=== PATIENT | female | born 1940 ===

== ENCOUNTER 2017-01-27 17:59 | Inpatient (IN) | payer OTHER, MEDICAID ==
[2017-01-27 19:06] VITALS: BMI 35.3
[2017-01-27] MEDS ORDERED: Benzocaine/Menthol (Cepacol) Lozenge MT PRN (19:49)
[2017-01-27] MEDS: Budesonide 0.5 mg/2 ml Inhal Susp UD IH SCH (20:33)
[2017-01-27] MEDS: Insulin Reg-LOW-Coverage SC SCH (21:43)
[2017-01-27] MEDS ORDERED: Influenza Vaccine 45 MCG/0.5 ml IM ONE (23:20)
[2017-01-27] MEDS ORDERED: Pneumococcal 23-Valent Vaccine IM ONE (23:20)
[2017-01-28] MEDS: Levothyroxine 50 MCG TAB PO SCH ×2 (05:24→05:28)
[2017-01-28] MEDS ORDERED: Enoxaparin 60 mg Syringe SC SCH (06:00)
[2017-01-28] MEDS: Insulin Reg-LOW-Coverage SC SCH ×4 (06:38→22:16)
[2017-01-28 06:45] LABS: INR 1.19 (0.93-1.08)
[2017-01-28 07:03] LABS: CALCIUM 9.1 mg/dL (8.4-10.5); MAGNESIUM 1.8 mg/dL (1.7-2.2); POTASSIUM 3.7 mmol/L (3.6-5.0)
[2017-01-28] MEDS: Budesonide 0.5 mg/2 ml Inhal Susp UD IH SCH ×2 (07:07→20:22)
[2017-01-28] MEDS: Potassium Chloride 20 mEq ER Tab PO SCH ×2 (10:58→18:25)
[2017-01-28] MEDS: Silver Sulfadiazine 1% Cream (20 gm) TOP SCH (15:14)
[2017-01-28] MEDS ORDERED: Benzocaine/Menthol (Cepacol) Lozenge MT PRN (17:55)
[2017-01-28] MEDS: Levalbuterol 0.63 MG/3 ML Inhal Soln UD IH PRN (20:22)
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
--- NOTE | 2017-01-29 01:49 | CP.PCM.CON ---
History of Present Illness - History of Present Illness History of Present Illness: Infectious Disease Follow Up: January 28, 2017 76 yo female with initial presentation with a syncopal episode. She did fall and hit the back of her right arm and ribcage. The patient presented to the ER with dehydration and hypokalemia. The patient developed fevers up to 102.3 F three days ago. Hernandez cultures taken. No leukocytosis. The patient has been in the hospital for four days so far. No episodes of nausea and vomiting. Supportive care. Blood cultures showing gram positive cocci. FISH testing strongly suggesting Staph Aureus infection. MSSA seen in official culture results. The patient has been Afebrile for the past few days. The patient has mild SOB and general weakness. Improving. PT/INR was elevated but now normalized. Patient that she feels better every day. Family in room. Repeat blood cultures negative at 48 hours. PMHx: Chronic Atrial fibrillation, chronic hypertension, Chronic anxiety neurosis, hypothyroidism, degenerative arthritis, questionable levothyroxine allergy. PSHx: none given Allergies: Levothyroxine? Social Hx: No tobacco, EtOH, or illicit drug use Active Medications Acetaminophen (Tylenol 325mg Tab) 650 mg PO Q4H PRN; Protocol PRN Reason: Fever >100.4 F Last Admin: 01/28/17 22:22 Dose: 650 mg Benzocaine/Menthol (Cepacol Sore Throat) 1 kendy MT Q8H PRN; Protocol PRN Reason: Sore Throat Budesonide (Pulmicort Respules) 0.5 mg IH [id number] AJ PRN Reason: Protocol Last Admin: 01/28/17 20:22 Dose: 0.5 mg Clonidine HCl (Catapres) 0.1 mg PO Q4H PRN; Protocol PRN Reason: hypertension Famotidine (Pepcid) 20 mg PO HS AJ PRN Reason: Protocol Last Admin: 01/28/17 22:17 Dose: 20 mg Nafcillin Sodium 2 gm/ (Dextrose) 100 mls @ 100 mls/hr IVPB Q4 AJ PRN Reason: Protocol Stop: 01/31/17 20:00 Last Admin: 01/29/17 01:34 Dose: 100 mls/hr Insulin Human Regular (Humulin R Low) 0 units SC ACHS AJ PRN Reason: Protocol Last Admin: 01/28/17 22:16 Dose: Not Given Levalbuterol HCl (Xopenex) 0.63 mg IH [id number] PRN; Protocol PRN Reason: Shortness of Breath Last Admin: 01/28/17 20:22 Dose: 0.63 mg Levothyroxine Sodium (Synthroid) 50 mcg PO 0600 AJ PRN Reason: Protocol Lisinopril (Zestril) 20 mg PO DAILY AJ PRN Reason: Protocol Last Admin: 01/28/17 11:09 Dose: Not Given Lorazepam (Ativan) 0.5 mg PO Q6 PRN PRN Reason: Anxiety Last Admin: 01/28/17 22:22 Dose: 0.5 mg Metoprolol Tartrate (Lopressor) 50 mg PO BRKDIN AJ Last Admin: 01/28/17 18:25 Dose: 50 mg Potassium Chloride (K-Dur 20 Meq Er Tab) 20 meq PO BID AJ PRN Reason: Protocol Last Admin: 01/28/17 18:25 Dose: 20 meq Silver Sulfadiazine (Silvadene 1% 20 Gm) 1 ea TOP DAILY AJ PRN Reason: Protocol Last Admin: 01/28/17 15:14 Dose: 1 cre Warfarin Sodium (Coumadin) 6 mg PO 1800 AJ Last Admin: 01/28/17 18:40 Dose: 6 mg Family Hx: none given ROS: syncope, fall, fevers. No nausea, vomiting, diarrhea, headaches, chest pain, abdominal pain, melena, hematuria, hematemesis, hematochezia, depression, anxiety. Past Patient History - Past Social History Smoking Status: Never Smoked - CARDIAC Hx Cardiac Disorders: Yes Hx Hypertension: Yes - PULMONARY Hx Respiratory Disorders: No - NEUROLOGICAL Hx Neurological Disorder: No - HEENT Hx HEENT Problems: Yes Hx Glaucoma: Yes - RENAL Hx Chronic Kidney Disease: (sees kidney dr for hypokalemia) - ENDOCRINE/METABOLIC Hx Hypothyroidism: Yes - HEMATOLOGICAL/ONCOLOGICAL Hx Blood Disorders: No - INTEGUMENTARY Hx Dermatological Problems: No - MUSCULOSKELETAL/RHEUMATOLOGICAL Hx Falls: Yes (past) - GASTROINTESTINAL Hx Gastrointestinal Disorders: No - GENITOURINARY/GYNECOLOGICAL Hx Reproductive Disorders: No - PSYCHIATRIC Hx Psychophysiologic Disorder: No Hx Anxiety: (denies) Hx Depression: (denies) - SURGICAL HISTORY Hx Surgeries: No - ANESTHESIA Hx Anesthesia: No Hx Anesthesia Reactions: No Hx Malignant Hyperthermia: No Meds Allergies/Adverse Reactions: Allergies Allergy/AdvReac Type Severity Reaction Status Date / Time levothyroxine sodium Allergy ITCHING Verified 01/27/17 19:28 [From Synthroid] - Medications Medications: Current Medications Acetaminophen (Tylenol 325mg Tab) 650 mg PO Q4H PRN; Protocol PRN Reason: Fever >100.4 F Last Admin: 01/28/17 22:22 Dose: 650 mg Benzocaine/Menthol (Cepacol Sore Throat) 1 kendy MT Q8H PRN; Protocol PRN Reason: Sore Throat Budesonide (Pulmicort Respules) 0.5 mg IH [id number] AJ PRN Reason: Protocol Last Admin: 01/28/17 20:22 Dose: 0.5 mg Clonidine HCl (Catapres) 0.1 mg PO Q4H PRN; Protocol PRN Reason: hypertension Famotidine (Pepcid) 20 mg PO HS AJ PRN Reason: Protocol Last Admin: 01/28/17 22:17 Dose: 20 mg Nafcillin Sodium 2 gm/ (Dextrose) 100 mls @ 100 mls/hr IVPB Q4 AJ PRN Reason: Protocol Stop: 01/31/17 20:00 Last Admin: 01/29/17 01:34 Dose: 100 mls/hr Insulin Human Regular (Humulin R Low) 0 units SC ACHS AJ PRN Reason: Protocol Last Admin: 01/28/17 22:16 Dose: Not Given Levalbuterol HCl (Xopenex) 0.63 mg IH [id number] PRN; Protocol PRN Reason: Shortness of Breath Last Admin: 01/28/17 20:22 Dose: 0.63 mg Levothyroxine Sodium (Synthroid) 50 mcg PO 0600 AJ PRN Reason: Protocol Lisinopril (Zestril) 20 mg PO DAILY AJ PRN Reason: Protocol Last Admin: 01/28/17 11:09 Dose: Not Given Lorazepam (Ativan) 0.5 mg PO Q6 PRN PRN Reason: Anxiety Last Admin: 01/28/17 22:22 Dose: 0.5 mg Metoprolol Tartrate (Lopressor) 50 mg PO BRKDIN AJ Last Admin: 01/28/17 18:25 Dose: 50 mg Potassium Chloride (K-Dur 20 Meq Er Tab) 20 meq PO BID AJ PRN Reason: Protocol Last Admin: 01/28/17 18:25 Dose: 20 meq Silver Sulfadiazine (Silvadene 1% 20 Gm) 1 ea TOP DAILY AJ PRN Reason: Protocol Last Admin: 01/28/17 15:14 Dose: 1 cre Warfarin Sodium (Coumadin) 6 mg PO 1800 AJ Last Admin: 01/28/17 18:40 Dose: 6 mg Physical Exam - Constitutional Appears: Non-toxic, No Acute Distress - Head Exam Head Exam: ATRAUMATIC, NORMOCEPHALIC - Eye Exam Eye Exam: EOMI, PERRL Pupil Exam: NORMAL ACCOMODATION, PERRL - ENT Exam ENT Exam: Mucous Membranes Moist, Normal External Ear Exam, TM's Normal Bilaterally - Neck Exam Neck exam: Positive for: Full Rom, Normal Inspection - Respiratory Exam Respiratory Exam: Clear to Auscultation Bilateral, NORMAL BREATHING PATTERN. absent: Rales, Rhonchi, Wheezes - Cardiovascular Exam Cardiovascular Exam: Irregular Rhythm, +S1, +S2 - GI/Abdominal Exam GI & Abdominal Exam: Normal Bowel Sounds, Soft. absent: Distended, Tenderness - Extremities Exam Extremities exam: Positive for: full ROM, normal inspection - Neurological Exam Neurological exam: Alert, CN II-XII Intact, Oriented x3 - Psychiatric Exam Psychiatric exam: Normal Affect, Normal Mood - Skin Skin Exam: Intact, Normal Color Results - Vital Signs Recent Vital Signs: Last Vital Signs Temp 97.8 F 01/28/17 16:00 Pulse 78 01/28/17 18:25 Resp 18 01/28/17 16:00 BP 155/80 H 01/28/17 18:25 Pulse Ox 98 01/28/17 16:00 - Labs Result Diagrams: 01/28/17 11:04 01/28/17 06:28 Labs: Laboratory Results - last 24 hr 01/28/17 01/28/17 01/28/17 05:24 06:28 11:04 Hgb 10.4 L Hct 30.0 L PT 12.9 H INR 1.19 H Sodium 140 Potassium 3.7 Chloride 103 Carbon Dioxide 27 Anion Gap 14 BUN 19 Creatinine 1.6 H Est GFR ( Amer) 38 Est GFR (Non-Af Amer) 31 POC Glucose (mg/dL) 119 H Random Glucose 112 H Calcium 9.1 Magnesium 1.8 Stool Occult Blood 01/28/17 21:10 Hgb Hct PT INR Sodium Potassium Chloride Carbon Dioxide Anion Gap BUN Creatinine Est GFR ( Amer) Est GFR (Non-Af Amer) POC Glucose (mg/dL) Random Glucose Calcium Magnesium Stool Occult Blood Negative Assessment & Plan - Assessment and Plan (Free Text) Assessment: 76 yo female with sudden fevers up to 102 F. Hernandez cultures taken. Obtain ESR, CRP, and Procalcitonin values. Initially on cefepime at 1 gm IV daily given the renal insufficiency of the patient. Patient had abdominal pain as well. Patient states that she feels better today. Consider abdominal X-ray and even Abdominal CT scan - both studies did not show any significant abnormalities. Supportive care. Blood cultures showing gram positive cocci in clusters. PNA FISH strongly suggesting Staph Aureus. MSSA identified. On Nafcillin at this time. Had extensive discussion with the patient and multiple daughters regarding the current findings and potential outcomes. Patient is currently afebrile and feeling overall better. No new complaints at this time. Repeat cultures negative at 48 hours. Patient continues to improve. Thank you for allowing me to participate in the care of the patient, we will follow with you.
[2017-01-29] MEDS ORDERED: Enoxaparin 60 mg Syringe SC SCH (06:00)
[2017-01-29] MEDS: Levothyroxine 50 MCG TAB PO SCH (06:02)
[2017-01-29 07:34] LABS: INR 1.14 (0.93-1.08)
[2017-01-29 07:40] LABS: MAGNESIUM 1.7 mg/dL (1.7-2.2); POTASSIUM 3.6 mmol/L (3.6-5.0)
[2017-01-29] MEDS: Insulin Reg-LOW-Coverage SC SCH ×4 (07:57→22:04)
[2017-01-29] MEDS: Levalbuterol 0.63 MG/3 ML Inhal Soln UD IH PRN ×2 (08:47→20:16)
[2017-01-29] MEDS: Budesonide 0.5 mg/2 ml Inhal Susp UD IH SCH ×2 (08:47→20:16)
[2017-01-29] MEDS: Potassium Chloride 20 mEq ER Tab PO SCH ×2 (09:44→17:40)
[2017-01-29] MEDS: Silver Sulfadiazine 1% Cream (20 gm) TOP SCH (09:45)
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
--- NOTE | 2017-01-29 15:36 | CP.PCM.PN ---
Subjective - Date & Time of Evaluation Date of Evaluation: 01/29/17 Time of Evaluation: 14:45 - Subjective Subjective: Infectious Disease Follow Up: January 29, 2017 76 yo female with initial presentation with a syncopal episode. She did fall and hit the back of her right arm and ribcage. The patient presented to the ER with dehydration and hypokalemia. The patient developed fevers up to 102.3 F three days ago. Hernandez cultures taken. No leukocytosis. The patient has been in the hospital for four days so far. No episodes of nausea and vomiting. Supportive care. Blood cultures showing gram positive cocci. FISH testing strongly suggesting Staph Aureus infection. MSSA seen in official culture results. The patient has been Afebrile for the past few days. The patient has mild SOB and general weakness. Improving. PT/INR was elevated but now normalized. Patient that she feels better every day. Family in room. Repeat blood cultures negative at 48 hours. Objective - Vital Signs/Intake and Output Vital Signs (last 24 hours): Temp Pulse Resp BP Pulse Ox 98.3 F 81 18 157/85 H 97 01/29/17 10:00 01/29/17 10:00 01/29/17 10:00 01/29/17 10:00 01/29/17 10:00 - Medications Medications: Current Medications Acetaminophen (Tylenol 325mg Tab) 650 mg PO Q4H PRN; Protocol PRN Reason: Fever >100.4 F Last Admin: 01/28/17 22:22 Dose: 650 mg Benzocaine/Menthol (Cepacol Sore Throat) 1 kendy MT Q8H PRN; Protocol PRN Reason: Sore Throat Budesonide (Pulmicort Respules) 0.5 mg IH [id number] AJ PRN Reason: Protocol Last Admin: 01/29/17 08:47 Dose: 0.5 mg Clonidine HCl (Catapres) 0.1 mg PO Q4H PRN; Protocol PRN Reason: hypertension Famotidine (Pepcid) 20 mg PO HS AJ PRN Reason: Protocol Last Admin: 01/28/17 22:17 Dose: 20 mg Guaifenesin/Dextromethorphan (Robitussin Dm) 5 ml PO Q6H PRN PRN Reason: Cough Nafcillin Sodium 2 gm/ (Dextrose) 100 mls @ 100 mls/hr IVPB Q4 AJ PRN Reason: Protocol Stop: 01/31/17 20:00 Last Admin: 01/29/17 11:53 Dose: 100 mls/hr Insulin Human Regular (Humulin R Low) 0 units SC ACHS AJ PRN Reason: Protocol Last Admin: 01/29/17 11:34 Dose: 1 units Levalbuterol HCl (Xopenex) 0.63 mg IH [id number] PRN; Protocol PRN Reason: Shortness of Breath Last Admin: 01/29/17 08:47 Dose: 0.63 mg Levothyroxine Sodium (Synthroid) 50 mcg PO 0600 AJ PRN Reason: Protocol Last Admin: 01/29/17 06:02 Dose: Not Given Lisinopril (Zestril) 20 mg PO DAILY AJ PRN Reason: Protocol Last Admin: 01/29/17 09:46 Dose: 20 mg Lorazepam (Ativan) 0.5 mg PO Q6 PRN PRN Reason: Anxiety Last Admin: 01/28/17 22:22 Dose: 0.5 mg Metoprolol Tartrate (Lopressor) 50 mg PO BRKDIN [facility] Last Admin: 01/29/17 07:58 Dose: 50 mg Potassium Chloride (K-Dur 20 Meq Er Tab) 20 meq PO BID AJ PRN Reason: Protocol Last Admin: 01/29/17 09:44 Dose: 20 meq Silver Sulfadiazine (Silvadene 1% 20 Gm) 1 ea TOP DAILY AJ PRN Reason: Protocol Last Admin: 01/29/17 09:45 Dose: 1 cre Warfarin Sodium (Coumadin) 6 mg PO 1800 [facility] Last Admin: 01/28/17 18:40 Dose: 6 mg - Labs Labs: 01/28/17 11:04 01/29/17 07:00 PT 12.3 Seconds (9.9-11.8) H 01/29/17 07:00 INR 1.14 (0.93-1.08) H 01/29/17 07:00 - Constitutional Appears: Non-toxic, No Acute Distress, Chronically Ill - Head Exam Head Exam: ATRAUMATIC, NORMOCEPHALIC - Eye Exam Eye Exam: EOMI, PERRL Pupil Exam: NORMAL ACCOMODATION, PERRL - ENT Exam ENT Exam: Mucous Membranes Moist, Normal External Ear Exam, TM's Normal Bilaterally - Neck Exam Neck Exam: Full ROM, Normal Inspection - Respiratory Exam Respiratory Exam: Clear to Ausculation Bilateral, NORMAL BREATHING PATTERN. absent: Rales, Rhonchi, Wheezes - Cardiovascular Exam Cardiovascular Exam: REGULAR RHYTHM, RRR, +S1, +S2 - GI/Abdominal Exam GI & Abdominal Exam: Soft, Normal Bowel Sounds. absent: Distended, Tenderness - Extremities Exam Extremities Exam: Full ROM, Normal Inspection - Back Exam Back Exam: NORMAL INSPECTION - Neurological Exam Neurological Exam: Alert, Awake, CN II-XII Intact, Oriented x3 - Psychiatric Exam Psychiatric exam: Normal Affect, Normal Mood - Skin Skin Exam: Intact, Normal Color Assessment and Plan - Assessment and Plan (Free Text) Assessment: 76 yo female with sudden fevers up to 102 F. Hernandez cultures taken. Obtain ESR, CRP, and Procalcitonin values. Initially on cefepime at 1 gm IV daily given the renal insufficiency of the patient. Patient had abdominal pain as well. Patient states that she feels better today. Consider abdominal X-ray and even Abdominal CT scan - both studies did not show any significant abnormalities. Supportive care. Blood cultures showing gram positive cocci in clusters. PNA FISH strongly suggesting Staph Aureus. MSSA identified. Remains on Nafcillin at this time. Had extensive discussion with the patient and multiple daughters regarding the current findings and potential outcomes. Patient is currently afebrile and feeling overall better. No new complaints at this time. Repeat cultures negative at 48 hours. Patient continues to improve. Nafcillin started on 01/22/2017. Would complete at least 14 day course of Nafcillin 2gm IV q4hrs. Patient doing well overall. Thank you for allowing me to participate in the care of the patient, we will follow with you.
[2017-01-29] MEDS: guaiFENesin DM 100 mg-10 mg/5 ml UD PO PRN (17:45)
[2017-01-30] MEDS: guaiFENesin DM 100 mg-10 mg/5 ml UD PO PRN ×3 (00:12→21:18)
[2017-01-30] MEDS: Levothyroxine 50 MCG TAB PO SCH (05:45)
[2017-01-30] MEDS: Insulin Reg-LOW-Coverage SC SCH ×4 (06:48→22:39)
[2017-01-30] MEDS: Levalbuterol 0.63 MG/3 ML Inhal Soln UD IH PRN ×2 (07:26→20:31)
[2017-01-30] MEDS: Budesonide 0.5 mg/2 ml Inhal Susp UD IH SCH ×2 (07:27→20:31)
[2017-01-30 08:19] LABS: HEMATOCRIT 30.3 % (36.0-48.0); MEAN CELL VOLUME 91.3 fL (80.0-105.0); MEAN CORPUSCULAR HEMOGLOBIN 31.3 pg (25.0-35.0); MEAN CORPUSCULAR HGB CONC 34.3 g/dl (31.0-37.0); MEAN PLATELET VOLUME 9.3 fl (7.0-11.0); PLATELET COUNT 299 10^3/uL (120.0-450.0); RED CELL DISTRIBUTION WIDTH 15.4 % (11.5-14.5); WHITE BLOOD COUNT 8.1 10^3/ul (4.5-11.0)
[2017-01-30 08:26] LABS: ALB/GLOB RATIO 0.9 (1.1-1.8); CALCIUM 9.7 mg/dL (8.4-10.5); MAGNESIUM 1.8 mg/dL (1.7-2.2); POTASSIUM 3.8 mmol/L (3.6-5.0); TOTAL PROTEIN 8.3 g/dL (5.8-8.3)
[2017-01-30 08:31] LABS: INR 1.18 (0.93-1.08)
[2017-01-30 09:44] LABS: ADD MANUAL DIFF? NO
[2017-01-30 09:46] LABS: BASO % 0.1 % (0.0-3.0); EOS % 1.9 % (1.5-5.0); GRAN # 5.61 (1.4-6.5); GRAN % 65.9 % (50.0-68.0); LYMPH % 23.5 % (22.0-35.0); MONO % 6.8 % (1.0-6.0)
[2017-01-30 09:47] LABS: BASO # 0.01 K/mm3 (0.0-2.0); EOS # 0.2 (0.0-0.7); LYMPH # 2.2 (1.2-3.4); MONO # 0.6 (0.1-0.6)
[2017-01-30] MEDS: Potassium Chloride 20 mEq ER Tab PO SCH ×2 (09:48→17:35)
[2017-01-30] MEDS: Silver Sulfadiazine 1% Cream (20 gm) TOP SCH (09:49)
[2017-01-30] MEDS: Sodium Chloride 0.45% 1,000 ML IV SCH ×2 (09:49→19:50)
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
--- NOTE | 2017-01-30 11:44 | US ---
PROCEDURE: Ultrasound of the Kidneys HISTORY: azotemia COMPARISON: None available. TECHNIQUE: Sonogram of the kidneys. FINDINGS: RIGHT KIDNEY: Measures: 9.3 cm. Normal in size, contour and echogenicity. No calculus or hydronephrosis. No solid mass. Simple cortical cyst in the upper pole measures 8 x 9 x 10 mm. LEFT KIDNEY: Measures: 9.1 cm. Normal in size, contour and echogenicity. No calculus or hydronephrosis. No solid mass. Simple cyst in upper pole measures 1.2 x 1.3 x 1.3 cm. OTHER FINDINGS: None. IMPRESSION: Bilateral small simple cortical cyst. Otherwise unremarkable examination.
--- NOTE | 2017-01-30 14:32 | CP.PCM.PN ---
Subjective - Date & Time of Evaluation Date of Evaluation: 01/30/17 Time of Evaluation: 13:45 - Subjective Subjective: Infectious Disease Follow Up: January 30, 2017 76 yo female with initial presentation with a syncopal episode. She did fall and hit the back of her right arm and ribcage. The patient presented to the ER with dehydration and hypokalemia. The patient developed fevers up to 102.3 F three days ago. Hernandez cultures taken. No leukocytosis. The patient has been in the hospital for four days so far. No episodes of nausea and vomiting. Supportive care. Blood cultures showing gram positive cocci. FISH testing strongly suggesting Staph Aureus infection. MSSA seen in official culture results. The patient has been Afebrile for the past few days. The patient has mild SOB and general weakness. Improving. PT/INR was elevated but now normalized. Patient that she feels better every day. Family in room. Noted creatinine is rising. Repeat blood cultures negative at 48 hours. Objective - Vital Signs/Intake and Output Vital Signs (last 24 hours): Temp Pulse Resp BP Pulse Ox 98.2 F 81 18 181/99 H 99 01/30/17 10:00 01/30/17 10:00 01/30/17 10:00 01/30/17 10:00 01/30/17 10:00 - Medications Medications: Current Medications Acetaminophen (Tylenol 325mg Tab) 650 mg PO Q4H PRN; Protocol PRN Reason: Fever >100.4 F Last Admin: 01/29/17 21:04 Dose: 650 mg Benzocaine/Menthol (Cepacol Sore Throat) 1 kendy MT Q8H PRN; Protocol PRN Reason: Sore Throat Budesonide (Pulmicort Respules) 0.5 mg IH [id number] AJ PRN Reason: Protocol Last Admin: 01/30/17 07:27 Dose: 0.5 mg Clonidine HCl (Catapres) 0.1 mg PO Q4H PRN; Protocol PRN Reason: hypertension Famotidine (Pepcid) 20 mg PO HS AJ PRN Reason: Protocol Last Admin: 01/29/17 21:00 Dose: 20 mg Guaifenesin/Dextromethorphan (Robitussin Dm) 5 ml PO Q6H PRN PRN Reason: Cough Last Admin: 01/30/17 00:12 Dose: 5 ml Nafcillin Sodium 2 gm/ (Dextrose) 100 mls @ 100 mls/hr IVPB Q4 AJ PRN Reason: Protocol Stop: 01/31/17 20:00 Last Admin: 01/30/17 12:24 Dose: 100 mls/hr Sodium Chloride (Sodium Chloride 0.45%) 1,000 mls @ 100 mls/hr IV .Q10H AJ Last Admin: 01/30/17 09:49 Dose: 100 mls/hr Insulin Human Regular (Humulin R Low) 0 units SC ACHS AJ PRN Reason: Protocol Last Admin: 01/30/17 11:46 Dose: 1 units Levalbuterol HCl (Xopenex) 0.63 mg IH [id number] PRN; Protocol PRN Reason: Shortness of Breath Last Admin: 01/30/17 07:26 Dose: 0.63 mg Levothyroxine Sodium (Synthroid) 50 mcg PO 0600 AJ PRN Reason: Protocol Last Admin: 01/30/17 05:45 Dose: Not Given Lorazepam (Ativan) 0.5 mg PO Q6 PRN PRN Reason: Anxiety Last Admin: 01/29/17 20:58 Dose: 0.5 mg Metoprolol Tartrate (Lopressor) 50 mg PO BRKDIN [facility] Last Admin: 01/30/17 09:48 Dose: 50 mg Potassium Chloride (K-Dur 20 Meq Er Tab) 20 meq PO BID AJ PRN Reason: Protocol Last Admin: 01/30/17 09:48 Dose: 20 meq Silver Sulfadiazine (Silvadene 1% 20 Gm) 1 ea TOP DAILY AJ PRN Reason: Protocol Last Admin: 01/30/17 09:49 Dose: 1 applic Warfarin Sodium (Coumadin) 7.5 mg PO 1800 [facility] - Labs Labs: 01/30/17 08:10 01/30/17 08:10 PT 12.7 Seconds (9.9-11.8) H 01/30/17 08:10 INR 1.18 (0.93-1.08) H 01/30/17 08:10 - Constitutional Appears: Non-toxic, No Acute Distress, Chronically Ill - Head Exam Head Exam: ATRAUMATIC, NORMOCEPHALIC - Eye Exam Eye Exam: EOMI, PERRL Pupil Exam: NORMAL ACCOMODATION, PERRL - ENT Exam ENT Exam: Mucous Membranes Moist, Normal External Ear Exam, TM's Normal Bilaterally - Neck Exam Neck Exam: Full ROM, Normal Inspection - Respiratory Exam Respiratory Exam: Clear to Ausculation Bilateral, NORMAL BREATHING PATTERN. absent: Rales, Rhonchi, Wheezes - Cardiovascular Exam Cardiovascular Exam: REGULAR RHYTHM, RRR, +S1, +S2 - GI/Abdominal Exam GI & Abdominal Exam: Soft, Normal Bowel Sounds. absent: Distended, Tenderness - Extremities Exam Extremities Exam: Full ROM, Normal Inspection - Neurological Exam Neurological Exam: Alert, Awake, CN II-XII Intact, Oriented x3 - Psychiatric Exam Psychiatric exam: Normal Affect, Normal Mood - Skin Skin Exam: Intact, Normal Color Assessment and Plan - Assessment and Plan (Free Text) Assessment: 76 yo female with sudden fevers up to 102 F. Hernandez cultures taken. Obtain ESR, CRP, and Procalcitonin values. Initially on cefepime at 1 gm IV daily given the renal insufficiency of the patient. Patient had abdominal pain as well. Patient states that she feels better today. Consider abdominal X-ray and even Abdominal CT scan - both studies did not show any significant abnormalities. Supportive care. Blood cultures showing gram positive cocci in clusters. PNA FISH strongly suggesting Staph Aureus. MSSA identified. Remains on Nafcillin at this time. Had extensive discussion with the patient and multiple daughters regarding the current findings and potential outcomes. Patient is currently afebrile and feeling overall better. No new complaints at this time. Repeat cultures negative at 48 hours. Patient continues to improve. Nafcillin started on 01/22/2017. Patient doing well overall. Noted sudden rise in creatinine. Will stop Nafcillin and start Rocephin to complete 14 day course. Thank you for allowing me to participate in the care of the patient, we will follow with you.
[2017-01-30 20:50] LABS: PH,URINE 7.5 (4.7-8.0); URINE APPEARANCE CLEAR (CLEAR); URINE BILIRUBIN NEGATIVE (NEGATIVE); URINE BLOOD TRACE-INTACT (NEGATIVE); URINE COLOR YELLOW (YELLOW); URINE GLUCOSE (UA) NEGATIVE (NEGATIVE); URINE KETONE NEGATIVE (NEGATIVE); URINE LEUKOCYTE ESTERASE NEGATIVE Leu/uL (NEGATIVE); URINE PROTEIN TRACE mg/dL (<30 mg/dL); URINE UROBILINOGEN 0.2 E.U./dL (<1 E.U./dL)
[2017-01-30 21:16] LABS: URINE WBC 0 - 2 /hpf (0-6)
[2017-01-30 21:17] LABS: URINE AMORPHOUS SEDIMENT FEW; URINE BACTERIA MOD (NEG)
[2017-01-31] MEDS: guaiFENesin DM 100 mg-10 mg/5 ml UD PO PRN ×2 (05:17→21:52)
[2017-01-31] MEDS: cefTRIAXone 1 gm 100 ML IVPB SCH (05:17)
[2017-01-31] MEDS: Sodium Chloride 0.45% 1,000 ML IV SCH ×4 (05:18→23:19)
[2017-01-31] MEDS: Levothyroxine 50 MCG TAB PO SCH (05:19)
[2017-01-31] MEDS: Insulin Reg-LOW-Coverage SC SCH ×4 (06:51→23:25)
[2017-01-31 07:23] LABS: CALCIUM 8.1 mg/dL (8.4-10.5); MAGNESIUM 1.5 mg/dL (1.7-2.2)
[2017-01-31 07:28] LABS: POTASSIUM 2.9 mmol/L (3.6-5.0)
[2017-01-31] MEDS: Levalbuterol 0.63 MG/3 ML Inhal Soln UD IH PRN (07:34)
[2017-01-31] MEDS: Budesonide 0.5 mg/2 ml Inhal Susp UD IH SCH (07:34)
[2017-01-31 07:49] LABS: INR 1.31 (0.93-1.08)
[2017-01-31] MEDS: Potassium Chloride 20 mEq ER Tab PO SCH ×3 (09:54→17:00)
[2017-01-31] MEDS: Silver Sulfadiazine 1% Cream (20 gm) TOP SCH (09:54)
[2017-01-31] MEDS ORDERED: cefTRIAXone 1 gm 100 ML IVPB SCH (10:00)
[2017-01-31] MEDS ORDERED: Magnesium Sulfate 2 GM in Sodium Chloride 0.9% 100 ML IVPB ONE (10:15)
--- NOTE | 2017-01-31 13:35 | PN ---
DATE: 01/31/2017 This 76-year-old female was examined at her bedside and her case was reviewed in detail with her nurse, Tre Koo. The patient had watery diarrhea earlier this morning and was also noted on her laboratories to have hypomagnesemia and hypokalemia. The patient has been ordered to have replacement therapy. I have requested a stool for C. diff toxin and if that is indeed negative, Lomotil. The patient is being treated with parenteral Rocephin because of concerns of nephrotoxicity secondary to her IV nafcillin. This was reviewed in detail with Dr. Mora from infectious disease. PHYSICAL EXAMINATION: VITAL SIGNS: At present her temperature is 97.9, respirations 18, pulse 68, blood pressure 158/78 with a pulse ox of 95% on room air. HEAD: Normocephalic, atraumatic. EYES: No icterus. EARS: Clear. THROAT: Noninjected. NECK: Supple. HEART: Regular S1, S2. LUNGS: Have no wheezing, no rales. ABDOMEN: Soft, nontender, no palpable organomegaly, no rebound, no guarding, no tenderness. There are hyperactive bowel sounds present. EXTREMITIES: Show no clubbing, no cyanosis, no edema. SKIN: Without rash. NEUROLOGIC: Intact. PSYCHOLOGICAL: Alert. VASCULAR: Legs warm to touch. LABORATORY DATA: White count 8100, hemoglobin 10.4, hematocrit 30.3, platelets 299,000. PT/INR 1.31. Sodium 136, K 2.9, chloride 102, bicarbonate 26, BUN 19 , creatinine 1.9, previously, BUN 25, creatinine 2.3, random blood sugar 121, magnesium low at 1.5. Urinalysis showed negative eosinophils, 0-2 white blood cells and moderate bacteria. Stool for occult blood negative. IMPRESSION: A 76-year-old female receiving IV antibiotics for Staph aureus sepsis, also with acute on chronic renal failure in the setting of diarrhea and discontinued nafcillin with improvement in her BUN and creatinine with gentle IV fluids and discontinuation of IV nafcillin, also with comorbidities of chronic hypertension, chronic atrial fibrillation for which she is being reloaded with oral Coumadin and having PT/INRs done daily. Also with type 2 diabetes mellitus, hypomagnesemia and hypokalemia in the setting of diarrhea, peptic ulcer disease with gastroesophageal reflux disease and hypothyroidism and a right lower lobe pneumonia clinically improving. PLAN: Continue heart healthy diabetic diet. She continues on, thiamine 100 mg p.o. daily, Synthroid 50 mcg p.o. daily, Rocephin 1 gram IV q. 24, Pepcid 20 mg p.o. at bedtime, metoprolol tartrate 50 mg b.i.d., potassium chloride 40 mEq p.o. t.i.d., magnesium oxide 400 mg p.o. t.i.d., insulin coverage before meals and at bedtime, Coumadin 7.5 mg p.o. daily, holding any dose of Coumadin for an INR greater than 2.5 and 0.45 saline at 80 mL per hour. She is ordered to have a urine culture, a stool for C. diff toxin and INR in the a.m., magnesium level in a.m., basic metabolic panel in the a.m. and a vitamin D level for completeness sake. All of this has been reviewed with the patient and her nurse at her bedside. Greater than fifty minutes was spent in the care, coordination of care and discussion of care with this patient, Dr. Mora and her nurse today. Her overall prognosis though guarded is stable at present. Ladan Mcconnell MD cc: [phone] TT: 01/31/2017 13:34:57 Confirmation # [id number] Dictation # [id number] MTDD
[2017-01-31] MEDS: Magnesium Oxide 400 mg Tab UD PO SCH ×2 (13:41→17:02)
--- NOTE | 2017-01-31 16:46 | CP.PCM.PN ---
Subjective - Date & Time of Evaluation Date of Evaluation: 01/31/17 Time of Evaluation: 15:45 - Subjective Subjective: Infectious Disease Follow Up: January 31, 2017 76 yo female with initial presentation with a syncopal episode. She did fall and hit the back of her right arm and ribcage. The patient presented to the ER with dehydration and hypokalemia. The patient developed fevers up to 102.3 F three days ago. Hernandez cultures taken. No leukocytosis. The patient has been in the hospital for four days so far. No episodes of nausea and vomiting. Supportive care. Blood cultures showing gram positive cocci. FISH testing strongly suggesting Staph Aureus infection. MSSA seen in official culture results. The patient has been Afebrile for the past few days. The patient has mild SOB and general weakness. Improving. PT/INR was elevated but now normalized. Patient that she feels better every day. Family in room. Noted creatinine is elevated but improved from yesterday (2.3 improved to 1.9 today). Repeat blood cultures negative at 48+ hours. Objective - Vital Signs/Intake and Output Vital Signs (last 24 hours): Temp Pulse Resp BP Pulse Ox 97.9 F 68 18 158/78 H 95 01/31/17 10:00 01/31/17 10:00 01/31/17 10:00 01/31/17 10:00 01/31/17 10:00 - Medications Medications: Current Medications Acetaminophen (Tylenol 325mg Tab) 650 mg PO Q4H PRN; Protocol PRN Reason: Fever >100.4 F Last Admin: 01/30/17 21:19 Dose: 650 mg Benzocaine/Menthol (Cepacol Sore Throat) 1 kendy MT Q8H PRN; Protocol PRN Reason: Sore Throat Clonidine HCl (Catapres) 0.1 mg PO Q4H PRN; Protocol PRN Reason: hypertension Diphenoxylate HCl/Atropine (Lomotil 0.025-2.5 Mg Tablet) 1 tab PO QID PRN PRN Reason: diarrhea Famotidine (Pepcid) 20 mg PO HS AJ PRN Reason: Protocol Last Admin: 01/30/17 21:18 Dose: 20 mg Guaifenesin/Dextromethorphan (Robitussin Dm) 5 ml PO Q6H PRN PRN Reason: Cough Last Admin: 01/31/17 05:17 Dose: 5 ml Ceftriaxone Sodium (Rocephin 1 Gram Ivpb) 100 mls @ 100 mls/hr IVPB 0600 AJ PRN Reason: Protocol Last Admin: 01/31/17 05:17 Dose: 100 mls/hr Sodium Chloride (Sodium Chloride 0.45%) 1,000 mls @ 80 mls/hr IV .[id number] AJ Last Admin: 01/31/17 11:10 Dose: 80 mls/hr Insulin Human Regular (Humulin R Low) 0 units SC ACHS AJ PRN Reason: Protocol Last Admin: 01/31/17 11:41 Dose: Not Given Levalbuterol HCl (Xopenex) 0.63 mg IH [id number] PRN; Protocol PRN Reason: Shortness of Breath Last Admin: 01/31/17 07:34 Dose: 0.63 mg Levothyroxine Sodium (Synthroid) 50 mcg PO 0600 AJ PRN Reason: Protocol Last Admin: 01/31/17 05:19 Dose: Not Given Lorazepam (Ativan) 0.5 mg PO Q6 PRN PRN Reason: Anxiety Last Admin: 01/30/17 21:17 Dose: 0.5 mg Magnesium Oxide (Mag-Ox) 400 mg PO TID [facility] Last Admin: 01/31/17 13:41 Dose: 400 mg Metoprolol Tartrate (Lopressor) 50 mg PO BRKDIN [facility] Last Admin: 01/31/17 07:46 Dose: 50 mg Potassium Chloride (K-Dur 20 Meq Er Tab) 40 meq PO TID AJ PRN Reason: Protocol Last Admin: 01/31/17 13:43 Dose: 40 meq Silver Sulfadiazine (Silvadene 1% 20 Gm) 1 ea TOP DAILY AJ PRN Reason: Protocol Last Admin: 01/31/17 09:54 Dose: 1 applic Thiamine HCl (Vitamin B1 Tab) 100 mg PO DAILY [facility] Last Admin: 01/31/17 11:09 Dose: 100 mg Warfarin Sodium (Coumadin) 7.5 mg PO 1800 [facility] Last Admin: 01/30/17 17:34 Dose: 7.5 mg - Labs Labs: 01/30/17 08:10 01/31/17 06:30 PT 14.2 Seconds (9.9-11.8) H 01/31/17 06:30 INR 1.31 (0.93-1.08) H 01/31/17 06:30 - Constitutional Appears: Non-toxic, No Acute Distress - Head Exam Head Exam: ATRAUMATIC, NORMOCEPHALIC - Eye Exam Eye Exam: EOMI, PERRL Pupil Exam: NORMAL ACCOMODATION, PERRL - ENT Exam ENT Exam: Mucous Membranes Moist, Normal External Ear Exam, TM's Normal Bilaterally - Neck Exam Neck Exam: Full ROM, Normal Inspection - Respiratory Exam Respiratory Exam: Clear to Ausculation Bilateral, NORMAL BREATHING PATTERN. absent: Rales, Rhonchi, Wheezes - Cardiovascular Exam Cardiovascular Exam: REGULAR RHYTHM, RRR, +S1, +S2 - GI/Abdominal Exam GI & Abdominal Exam: Soft, Normal Bowel Sounds. absent: Distended, Tenderness - Extremities Exam Extremities Exam: Full ROM, Normal Inspection - Neurological Exam Neurological Exam: Alert, Awake, CN II-XII Intact, Oriented x3 - Psychiatric Exam Psychiatric exam: Normal Affect, Normal Mood - Skin Skin Exam: Intact, Normal Color Assessment and Plan - Assessment and Plan (Free Text) Assessment: 76 yo female with sudden fevers up to 102 F. Hernandez cultures taken. Obtain ESR, CRP, and Procalcitonin values. Initially on cefepime at 1 gm IV daily given the renal insufficiency of the patient. Patient had abdominal pain as well. Patient states that she feels better today. Consider abdominal X-ray and even Abdominal CT scan - both studies did not show any significant abnormalities. Supportive care. Blood cultures showing gram positive cocci in clusters. PNA FISH strongly suggesting Staph Aureus. MSSA identified. Was on Nafcillin for 7-8 days. Had extensive discussion with the patient and multiple daughters regarding the current findings and potential outcomes. Patient is currently afebrile and feeling overall better. No new complaints at this time. Repeat cultures negative at 48 hours. Patient continues to improve. Nafcillin started on 01/22/2017. Patient doing well overall. Noted sudden rise in creatinine. Nafcillin stopped currently on Rocephin (since 01/30/2017) to complete 14 day course. Thank you for allowing me to participate in the care of the patient, we will follow with you.
[2017-01-31] MEDS: Atropine-Diphenoxylate 0.025-2.5 mg Tab PO PRN (21:51)
[2017-02-01] MEDS: cefTRIAXone 1 gm 100 ML IVPB SCH (06:10)
[2017-02-01] MEDS: Levothyroxine 50 MCG TAB PO SCH (06:11)
[2017-02-01 06:53] LABS: CALCIUM 9.6 mg/dL (8.4-10.5); MAGNESIUM 2.3 mg/dL (1.7-2.2); POTASSIUM 4.5 mmol/L (3.6-5.0)
[2017-02-01 07:02] LABS: INR 1.2 (0.93-1.08)
[2017-02-01] MEDS: Insulin Reg-LOW-Coverage SC SCH ×4 (07:34→22:06)
[2017-02-01] MEDS: Potassium Chloride 20 mEq ER Tab PO SCH ×2 (09:35→17:13)
[2017-02-01] MEDS: Silver Sulfadiazine 1% Cream (20 gm) TOP SCH (09:36)
[2017-02-01] MEDS: Magnesium Oxide 400 mg Tab UD PO SCH ×2 (09:36→17:14)
[2017-02-01] MEDS: Sodium Chloride 0.45% 1,000 ML IV SCH ×2 (10:19→11:50)
--- NOTE | 2017-02-01 11:27 | CP.PCM.PN ---
Subjective - Date & Time of Evaluation Date of Evaluation: 02/01/17 Time of Evaluation: 10:49 - Subjective Subjective: Patient seen at the request of her RN for Bp of 189/102.On repeating it was 175/ 92 and 163/87 .Her HR is 71 Patient is asymptomatic.She denies any c/o chest pain ,sob,palpitations or any other complaints.She received metoprolol earlier today She is currently being treated for staph aureus sepsis and is being hydrated for a rise in her BUN/Creatinine while she was being treated with Nafcillin.This was replaced with Rocephin. PMH:HTN,chronic Afib,DM ,PUD,GERD,Hypothyroidism,RLL pneumonia,which is now resolving. Objective - Vital Signs/Intake and Output Vital Signs (last 24 hours): Temp Pulse Resp BP Pulse Ox 98.2 F 83 20 189/102 H 98 02/01/17 10:00 02/01/17 10:00 02/01/17 10:00 02/01/17 10:00 02/01/17 10:00 - Medications Medications: Current Medications Acetaminophen (Tylenol 325mg Tab) 650 mg PO Q4H PRN; Protocol PRN Reason: Fever >100.4 F Last Admin: 01/31/17 21:51 Dose: 650 mg Benzocaine/Menthol (Cepacol Sore Throat) 1 kendy MT Q8H PRN; Protocol PRN Reason: Sore Throat Clonidine HCl (Catapres) 0.1 mg PO Q4H PRN; Protocol PRN Reason: hypertension Diphenoxylate HCl/Atropine (Lomotil 0.025-2.5 Mg Tablet) 1 tab PO QID PRN PRN Reason: diarrhea Last Admin: 01/31/17 21:51 Dose: 1 tab Famotidine (Pepcid) 20 mg PO HS AJ PRN Reason: Protocol Last Admin: 01/31/17 21:51 Dose: 20 mg Guaifenesin/Dextromethorphan (Robitussin Dm) 5 ml PO Q6H PRN PRN Reason: Cough Last Admin: 01/31/17 21:52 Dose: 5 ml Ceftriaxone Sodium (Rocephin 1 Gram Ivpb) 100 mls @ 100 mls/hr IVPB 0600 AJ PRN Reason: Protocol Last Admin: 02/01/17 06:10 Dose: 100 mls/hr Sodium Chloride (Sodium Chloride 0.45%) 1,000 mls @ 80 mls/hr IV .[id number] [facility] Last Admin: 02/01/17 10:19 Dose: 80 mls/hr Insulin Human Regular (Humulin R Low) 0 units SC ACHS AJ PRN Reason: Protocol Last Admin: 02/01/17 07:34 Dose: Not Given Levalbuterol HCl (Xopenex) 0.63 mg IH [id number] PRN; Protocol PRN Reason: Shortness of Breath Last Admin: 01/31/17 07:34 Dose: 0.63 mg Levothyroxine Sodium (Synthroid) 50 mcg PO 0600 [facility] PRN Reason: Protocol Last Admin: 02/01/17 06:11 Dose: Not Given Lorazepam (Ativan) 0.5 mg PO Q6 PRN PRN Reason: Anxiety Last Admin: 01/31/17 21:51 Dose: 0.5 mg Magnesium Oxide (Mag-Ox) 400 mg PO TID [facility] Last Admin: 02/01/17 09:36 Dose: 400 mg Metoprolol Tartrate (Lopressor) 50 mg PO BRKDIN [facility] Last Admin: 02/01/17 08:36 Dose: 50 mg Potassium Chloride (K-Dur 20 Meq Er Tab) 40 meq PO TID AJ PRN Reason: Protocol Last Admin: 02/01/17 09:35 Dose: 40 meq Silver Sulfadiazine (Silvadene 1% 20 Gm) 1 ea TOP DAILY [facility] PRN Reason: Protocol Last Admin: 02/01/17 09:36 Dose: 1 applic Thiamine HCl (Vitamin B1 Tab) 100 mg PO DAILY [facility] Last Admin: 02/01/17 09:36 Dose: 100 mg Warfarin Sodium (Coumadin) 7.5 mg PO 1800 [facility] Last Admin: 01/31/17 17:09 Dose: 7.5 mg - Labs Labs: 01/30/17 08:10 02/01/17 06:37 PT 13.0 Seconds (9.9-11.8) H 02/01/17 06:37 INR 1.20 (0.93-1.08) H 02/01/17 06:37 - Constitutional Appears: No Acute Distress - Head Exam Head Exam: ATRAUMATIC, NORMAL INSPECTION, NORMOCEPHALIC - Eye Exam Eye Exam: PERRL - ENT Exam ENT Exam: Mucous Membranes Moist - Neck Exam Neck Exam: Normal Inspection - Respiratory Exam Respiratory Exam: Clear to Ausculation Bilateral. absent: Rales, Wheezes - Cardiovascular Exam Cardiovascular Exam: REGULAR RHYTHM - GI/Abdominal Exam GI & Abdominal Exam: Soft, Normal Bowel Sounds - Extremities Exam Extremities Exam: Normal Inspection. absent: Calf Tenderness - Neurological Exam Neurological Exam: Alert, Awake, Oriented x3 Additional comments: Ambulatory - Psychiatric Exam Psychiatric exam: Normal Affect - Skin Skin Exam: Dry, Warm Assessment and Plan - Assessment and Plan (Free Text) Assessment: Hypertension Acute on Chronic renal failure Plan: Patient is to get Clonidine as already ordered by her PMD.
[2017-02-01] MEDS: guaiFENesin DM 100 mg-10 mg/5 ml UD PO PRN ×2 (12:08→21:23)
[2017-02-01] MEDS: Levalbuterol 0.63 MG/3 ML Inhal Soln UD IH PRN ×2 (12:25→20:44)
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
[2017-02-01] MEDS: Ergocalciferol 50,000 Intl Units Cap PO SCH (15:29)
--- NOTE | 2017-02-01 16:46 | CP.PCM.PN ---
Subjective - Date & Time of Evaluation Date of Evaluation: 02/01/17 Time of Evaluation: 14:45 - Subjective Subjective: Infectious Disease Follow Up: February 01, 2017 76 yo female with initial presentation with a syncopal episode. She did fall and hit the back of her right arm and ribcage. The patient presented to the ER with dehydration and hypokalemia. The patient developed fevers up to 102.3 F three days ago. Hernandez cultures taken. No leukocytosis. The patient has been in the hospital for four days so far. No episodes of nausea and vomiting. Supportive care. Blood cultures showing gram positive cocci. FISH testing strongly suggesting Staph Aureus infection. MSSA seen in official culture results. The patient has been Afebrile for the past few days. The patient has mild SOB and general weakness. Improving. PT/INR was elevated but now normalized. Patient that she feels better every day. Family in room. Noted creatinine remains elevated (2.1 today). Patient essentially making no complaints. Repeat blood cultures negative at 48+ hours. Objective - Vital Signs/Intake and Output Vital Signs (last 24 hours): Temp Pulse Resp BP Pulse Ox 98.2 F 72 20 168/96 H 98 02/01/17 10:00 02/01/17 13:20 02/01/17 10:00 02/01/17 13:20 02/01/17 10:00 - Medications Medications: Current Medications Acetaminophen (Tylenol 325mg Tab) 650 mg PO Q4H PRN; Protocol PRN Reason: Fever >100.4 F Last Admin: 01/31/17 21:51 Dose: 650 mg Amlodipine Besylate (Norvasc) 5 mg PO DAILY AJ Last Admin: 02/01/17 13:20 Dose: 5 mg Benzocaine/Menthol (Cepacol Sore Throat) 1 kendy MT Q8H PRN; Protocol PRN Reason: Sore Throat Clonidine HCl (Catapres) 0.1 mg PO Q4H PRN; Protocol PRN Reason: hypertension Last Admin: 02/01/17 12:10 Dose: 0.1 mg Diphenoxylate HCl/Atropine (Lomotil 0.025-2.5 Mg Tablet) 1 tab PO QID PRN PRN Reason: diarrhea Last Admin: 01/31/17 21:51 Dose: 1 tab Ergocalciferol (Drisdol 50,000 Intl Units Cap) 1 cap PO Q7D [facility] Last Admin: 02/01/17 15:29 Dose: 1 cap Famotidine (Pepcid) 20 mg PO HS AJ PRN Reason: Protocol Last Admin: 01/31/17 21:51 Dose: 20 mg Guaifenesin/Dextromethorphan (Robitussin Dm) 5 ml PO Q6H PRN PRN Reason: Cough Last Admin: 02/01/17 12:08 Dose: 5 ml Ceftriaxone Sodium (Rocephin 1 Gram Ivpb) 100 mls @ 100 mls/hr IVPB 0600 AJ PRN Reason: Protocol Last Admin: 02/01/17 06:10 Dose: 100 mls/hr Sodium Chloride (Sodium Chloride 0.45%) 1,000 mls @ 50 mls/hr IV .Q20H [facility] Last Admin: 02/01/17 11:50 Dose: 50 mls/hr Insulin Human Regular (Humulin R Low) 0 units SC ACHS AJ PRN Reason: Protocol Last Admin: 02/01/17 12:05 Dose: Not Given Levalbuterol HCl (Xopenex) 0.63 mg IH [id number] PRN; Protocol PRN Reason: Shortness of Breath Last Admin: 02/01/17 12:25 Dose: 0.63 mg Levothyroxine Sodium (Synthroid) 50 mcg PO 0600 AJ PRN Reason: Protocol Last Admin: 02/01/17 06:11 Dose: Not Given Lorazepam (Ativan) 0.5 mg PO Q6 PRN PRN Reason: Anxiety Last Admin: 01/31/17 21:51 Dose: 0.5 mg Magnesium Oxide (Mag-Ox) 400 mg PO BID [facility] Metoprolol Tartrate (Lopressor) 50 mg PO BRKDIN [facility] Last Admin: 02/01/17 08:36 Dose: 50 mg Potassium Chloride (K-Dur 20 Meq Er Tab) 40 meq PO BID [facility] PRN Reason: Protocol Silver Sulfadiazine (Silvadene 1% 20 Gm) 1 ea TOP DAILY [facility] PRN Reason: Protocol Last Admin: 02/01/17 09:36 Dose: 1 applic Thiamine HCl (Vitamin B1 Tab) 100 mg PO DAILY [facility] Last Admin: 02/01/17 09:36 Dose: 100 mg Warfarin Sodium (Coumadin) 10 mg PO 1800 [facility] - Labs Labs: 01/30/17 08:10 02/01/17 06:37 PT 13.0 Seconds (9.9-11.8) H 02/01/17 06:37 INR 1.20 (0.93-1.08) H 02/01/17 06:37 - Constitutional Appears: Non-toxic, No Acute Distress, Chronically Ill - Head Exam Head Exam: ATRAUMATIC, NORMOCEPHALIC - Eye Exam Eye Exam: EOMI, PERRL Pupil Exam: NORMAL ACCOMODATION, PERRL - ENT Exam ENT Exam: Mucous Membranes Moist, Normal External Ear Exam, TM's Normal Bilaterally - Neck Exam Neck Exam: Full ROM, Normal Inspection - Respiratory Exam Respiratory Exam: Clear to Ausculation Bilateral, NORMAL BREATHING PATTERN. absent: Rales, Rhonchi, Wheezes - Cardiovascular Exam Cardiovascular Exam: REGULAR RHYTHM, RRR, +S1, +S2 - GI/Abdominal Exam GI & Abdominal Exam: Soft, Normal Bowel Sounds. absent: Distended, Tenderness - Extremities Exam Extremities Exam: Full ROM, Normal Inspection - Neurological Exam Neurological Exam: Alert, Awake, CN II-XII Intact, Oriented x3 - Psychiatric Exam Psychiatric exam: Normal Affect, Normal Mood - Skin Skin Exam: Intact, Normal Color Assessment and Plan - Assessment and Plan (Free Text) Assessment: 76 yo female with sudden fevers up to 102 F. Hernandez cultures taken. Obtain ESR, CRP, and Procalcitonin values. Initially on cefepime at 1 gm IV daily given the renal insufficiency of the patient. Patient had abdominal pain as well. Patient states that she feels better today. Consider abdominal X-ray and even Abdominal CT scan - both studies did not show any significant abnormalities. Supportive care. Blood cultures showing gram positive cocci in clusters. PNA FISH strongly suggesting Staph Aureus. MSSA identified. Was on Nafcillin for 7-8 days. Had extensive discussion with the patient and multiple daughters regarding the current findings and potential outcomes. Patient is currently afebrile and feeling overall better. No new complaints at this time. Repeat cultures negative at 48 hours. Patient continues to improve. Nafcillin started on 01/22/2017. Patient doing well overall. Noted sudden rise in creatinine. Nafcillin stopped currently on Rocephin (since 01/30/2017) to complete 14 day course. Creatinine remains elevated with value at 2.1 today. Thank you for allowing me to participate in the care of the patient, we will follow with you.
[2017-02-01] MEDS: Atropine-Diphenoxylate 0.025-2.5 mg Tab PO PRN (21:25)
[2017-02-02] MEDS: Levothyroxine 50 MCG TAB PO SCH (05:48)
[2017-02-02] MEDS: cefTRIAXone 1 gm 100 ML IVPB SCH (05:48)
[2017-02-02] MEDS: Sodium Chloride 0.45% 1,000 ML IV SCH ×2 (06:00→08:13)
[2017-02-02] MEDS: Insulin Reg-LOW-Coverage SC SCH ×4 (06:38→21:51)
[2017-02-02 07:07] LABS: INR 1.31 (0.93-1.08)
[2017-02-02 07:08] LABS: MAGNESIUM 1.9 mg/dL (1.7-2.2)
[2017-02-02] MEDS: Potassium Chloride 20 mEq ER Tab PO SCH ×2 (10:00→17:25)
[2017-02-02] MEDS: Magnesium Oxide 400 mg Tab UD PO SCH (10:01)
[2017-02-02] MEDS: Silver Sulfadiazine 1% Cream (20 gm) TOP SCH (10:02)
[2017-02-02] MEDS: guaiFENesin DM 100 mg-10 mg/5 ml UD PO PRN ×2 (10:03→21:39)
[2017-02-02] MEDS ORDERED: Sodium Chloride 0.45% 1,000 ML IV SCH (13:49)
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
[2017-02-02] MEDS: Levalbuterol 0.63 MG/3 ML Inhal Soln UD IH PRN ×2 (15:54→19:19)
--- NOTE | 2017-02-02 18:43 | CP.PCM.PN ---
Subjective - Date & Time of Evaluation Date of Evaluation: 02/02/17 Time of Evaluation: 17:30 - Subjective Subjective: Infectious Disease Follow Up: February 02, 2017 76 yo female with initial presentation with a syncopal episode. She did fall and hit the back of her right arm and ribcage. The patient presented to the ER with dehydration and hypokalemia. The patient developed fevers up to 102.3 F three days ago. Hernandez cultures taken. No leukocytosis. The patient has been in the hospital for four days so far. No episodes of nausea and vomiting. Supportive care. Blood cultures showing gram positive cocci. FISH testing strongly suggesting Staph Aureus infection. MSSA seen in official culture results. The patient has been Afebrile for the past few days. The patient has mild SOB and general weakness. Improving. PT/INR was elevated but now normalized. Patient that she feels better every day. Family in room. Noted creatinine remains elevated (still 2.1 today). Patient essentially making no complaints. Repeat blood cultures negative at 48+ hours. Objective - Vital Signs/Intake and Output Vital Signs (last 24 hours): Temp Pulse Resp BP Pulse Ox 99.2 F 102 H 18 152/81 H 100 02/02/17 16:30 02/02/17 17:24 02/02/17 16:30 02/02/17 17:24 02/02/17 16:30 - Medications Medications: Current Medications Acetaminophen (Tylenol 325mg Tab) 650 mg PO Q4H PRN; Protocol PRN Reason: Fever >100.4 F Last Admin: 02/01/17 21:31 Dose: 650 mg Amlodipine Besylate (Norvasc) 5 mg PO DAILY AJ Last Admin: 02/02/17 10:02 Dose: 5 mg Benzocaine/Menthol (Cepacol Sore Throat) 1 kendy MT Q8H PRN; Protocol PRN Reason: Sore Throat Clonidine HCl (Catapres) 0.1 mg PO Q4H PRN; Protocol PRN Reason: hypertension Last Admin: 02/02/17 06:00 Dose: 0.1 mg Diphenoxylate HCl/Atropine (Lomotil 0.025-2.5 Mg Tablet) 1 tab PO QID PRN PRN Reason: diarrhea Last Admin: 02/01/17 21:25 Dose: 1 tab Ergocalciferol (Drisdol 50,000 Intl Units Cap) 1 cap PO Q7D AJ Last Admin: 02/01/17 15:29 Dose: 1 cap Famotidine (Pepcid) 20 mg PO HS AJ PRN Reason: Protocol Last Admin: 02/01/17 21:23 Dose: 20 mg Guaifenesin/Dextromethorphan (Robitussin Dm) 5 ml PO Q6H PRN PRN Reason: Cough Last Admin: 02/02/17 10:03 Dose: 5 ml Ceftriaxone Sodium (Rocephin 1 Gram Ivpb) 100 mls @ 100 mls/hr IVPB 0600 AJ PRN Reason: Protocol Last Admin: 02/02/17 05:48 Dose: 100 mls/hr Sodium Chloride (Sodium Chloride 0.45%) 1,000 mls @ 40 mls/hr IV .Q24H AJ Last Admin: 02/02/17 13:53 Dose: 40 mls/hr Insulin Human Regular (Humulin R Low) 0 units SC ACHS AJ PRN Reason: Protocol Last Admin: 02/02/17 16:46 Dose: Not Given Levalbuterol HCl (Xopenex) 0.63 mg IH [id number] PRN; Protocol PRN Reason: Shortness of Breath Last Admin: 02/02/17 15:54 Dose: 0.63 mg Levothyroxine Sodium (Synthroid) 50 mcg PO 0600 AJ PRN Reason: Protocol Last Admin: 02/02/17 05:48 Dose: 50 mcg Lorazepam (Ativan) 0.5 mg PO Q6 PRN PRN Reason: Anxiety Last Admin: 02/01/17 21:30 Dose: 0.5 mg Magnesium Oxide (Mag-Ox) 400 mg PO DAILY [facility] Metoprolol Tartrate (Lopressor) 50 mg PO BRKDIN [facility] Last Admin: 02/02/17 17:24 Dose: 50 mg Potassium Chloride (K-Dur 20 Meq Er Tab) 20 meq PO BID AJ PRN Reason: Protocol Last Admin: 02/02/17 17:25 Dose: 20 meq Silver Sulfadiazine (Silvadene 1% 20 Gm) 1 ea TOP DAILY AJ PRN Reason: Protocol Last Admin: 02/02/17 10:02 Dose: 1 applic Thiamine HCl (Vitamin B1 Tab) 100 mg PO DAILY [facility] Last Admin: 02/02/17 10:02 Dose: 100 mg Warfarin Sodium (Coumadin) 10 mg PO 1800 AJ Last Admin: 02/02/17 17:24 Dose: 10 mg - Labs Labs: 01/30/17 08:10 02/02/17 06:51 PT 14.2 Seconds (9.9-11.8) H 02/02/17 06:51 INR 1.31 (0.93-1.08) H 02/02/17 06:51 - Constitutional Appears: Non-toxic, No Acute Distress, Chronically Ill - Head Exam Head Exam: ATRAUMATIC, NORMOCEPHALIC - Eye Exam Eye Exam: EOMI, PERRL Pupil Exam: NORMAL ACCOMODATION, PERRL - ENT Exam ENT Exam: Mucous Membranes Moist, Normal External Ear Exam, TM's Normal Bilaterally - Neck Exam Neck Exam: Full ROM, Normal Inspection - Respiratory Exam Respiratory Exam: Clear to Ausculation Bilateral, NORMAL BREATHING PATTERN. absent: Rales, Rhonchi, Wheezes - Cardiovascular Exam Cardiovascular Exam: REGULAR RHYTHM, RRR, +S1, +S2 - GI/Abdominal Exam GI & Abdominal Exam: Soft, Normal Bowel Sounds. absent: Distended, Tenderness - Extremities Exam Extremities Exam: Full ROM, Normal Inspection - Neurological Exam Neurological Exam: Alert, Awake, CN II-XII Intact, Oriented x3 - Psychiatric Exam Psychiatric exam: Normal Affect, Normal Mood - Skin Skin Exam: Intact, Normal Color Assessment and Plan - Assessment and Plan (Free Text) Assessment: 76 yo female with sudden fevers up to 102 F. Hernandez cultures taken. Obtain ESR, CRP, and Procalcitonin values. Initially on cefepime at 1 gm IV daily given the renal insufficiency of the patient. Patient had abdominal pain as well. Patient states that she feels better today. Consider abdominal X-ray and even Abdominal CT scan - both studies did not show any significant abnormalities. Supportive care. Blood cultures showing gram positive cocci in clusters. PNA FISH strongly suggesting Staph Aureus. MSSA identified. Was on Nafcillin for 7-8 days. Had extensive discussion with the patient and multiple daughters regarding the current findings and potential outcomes. Patient is currently afebrile and feeling overall better. No new complaints at this time. Repeat cultures negative at 48 hours. Patient continues to improve. Nafcillin started on 01/22/2017. Patient doing well overall. Noted sudden rise in creatinine. Nafcillin stopped currently on Rocephin (since 01/30/2017) to complete 14 day course. Creatinine remains elevated with value at 2.1 today. Renal insufficiency. Thank you for allowing me to participate in the care of the patient, we will follow with you.
[2017-02-02] MEDS: Atropine-Diphenoxylate 0.025-2.5 mg Tab PO PRN (21:39)
[2017-02-03] MEDS: Levothyroxine 50 MCG TAB PO SCH (05:42)
[2017-02-03] MEDS: cefTRIAXone 1 gm 100 ML IVPB SCH (05:42)
[2017-02-03] MEDS: Levalbuterol 0.63 MG/3 ML Inhal Soln UD IH PRN (07:16)
[2017-02-03 07:17] LABS: INR 1.68 (0.93-1.08)
[2017-02-03] MEDS: Insulin Reg-LOW-Coverage SC SCH ×4 (07:54→21:56)
[2017-02-03 09:35] LABS: CALCIUM 8.9 mg/dL (8.4-10.5); MAGNESIUM 1.7 mg/dL (1.7-2.2); POTASSIUM 3.3 mmol/L (3.6-5.0)
[2017-02-03] MEDS: Potassium Chloride 20 mEq ER Tab PO SCH ×3 (10:10→17:38)
[2017-02-03] MEDS: Magnesium Oxide 400 mg Tab UD PO SCH (10:10)
[2017-02-03] MEDS: Silver Sulfadiazine 1% Cream (20 gm) TOP SCH (10:11)
--- NOTE | 2017-02-03 12:38 | PN ---
DATE: 02/03/2017 This 76-year-old female was examined, and her case was reviewed with herself, her nurse, and her physical therapist. She states she is still having watery loose bowel movements, and stool for C. diff toxin, antigen and toxin on repeat are indeed negative. I have advised the patient to take Lomotil, and she continues to be replaced with potassium and magnesium because of deficiencies related to the diarrhea. PHYSICAL EXAMINATION: VITAL SIGNS: Temperature is 98, respirations 18, pulse 78, blood pressure 150/ 70, pulse ox 97%. HEAD: Normocephalic, atraumatic. EYES: No icterus. EARS: Clear. THROAT: Noninjected. NECK: Supple. HEART: Irregular S1, S2. LUNGS: Clear. ABDOMEN: Soft. EXTREMITIES: No edema. SKIN: Without rash. NEUROLOGIC: Intact. PSYCHOLOGICAL: Alert. VASCULAR: Feet warm to touch. LABORATORY DATA: White count 8100, hemoglobin 10.4, hematocrit 30.3, platelets 299,000. PT/INR 1.68. Sodium 142, K 3.3, chloride 109, bicarb 20. BUN 21, creatinine 2.0. Random blood sugar is 112. Magnesium level 1.7, previously 1.9. Stool for occult blood negative. C. diff toxin, antigen and toxin negative. IMPRESSION: A 76-year-old female with Staphylococcus aureus sepsis initially treated with nafcillin, which caused acute on chronic renal failure, causing Dr. George Mora from infectious disease to switch the patient to IV Rocephin. Also with comorbidities of right lower lung pneumonia, acute on chronic renal failure, gastroenteritis, and resultant electrolyte imbalances including hypokalemia and hypomagnesemia with comorbidities of chronic atrial fibrillation , vitamin D deficiency, type 2 diabetes mellitus, chronic hypertension, peptic ulcer disease with gastroesophageal reflux disease, hypothyroidism, and anxiety neurosis. PLAN: Plan at present is to continue Xopenex, Synthroid, Rocephin, Robitussin p.r.n., Pepcid, Norvasc, mag oxide, metoprolol tartrate, Lomotil, potassium chloride, insulin coverage, vitamin D weekly, Coumadin with daily INR levels, holding Coumadin for any INR greater than 2.5, and Ativan p.r.n. She is scheduled for basic metabolic panels and magnesium levels daily, PT/INR level daily. A urine culture has been received. She is being followed by Dr. George Mora from infectious disease, and ultimate plan will be for discharge to home when medically stable. She remains on aspiration precautions, fall precautions, and isolation precautions, and approximately fifty minutes were spent in the care, coordination of care, review of care, and discussion of care with the patient, her nurse, and physical therapist, and Dr. Mora from infectious disease. Ladan Mcconnell MD cc: [phone] TT: 02/03/2017 12:37:49 Confirmation # [id number] Dictation # [id number] MTDD
--- NOTE | 2017-02-03 16:53 | CP.PCM.PN ---
Subjective - Date & Time of Evaluation Date of Evaluation: 02/03/17 Time of Evaluation: 15:30 - Subjective Subjective: Infectious Disease Follow Up: February 03, 2017 76 yo female with initial presentation with a syncopal episode. She did fall and hit the back of her right arm and ribcage. The patient presented to the ER with dehydration and hypokalemia. The patient developed fevers up to 102.3 F three days ago. Hernandez cultures taken. No leukocytosis. The patient has been in the hospital for four days so far. No episodes of nausea and vomiting. Supportive care. Blood cultures showing gram positive cocci. FISH testing strongly suggesting Staph Aureus infection. MSSA seen in official culture results. The patient has been Afebrile for the past few days. The patient has mild SOB and general weakness. Improving. PT/INR was elevated but now normalized. Patient that she feels better every day. Family in room. Noted creatinine remains elevated (still 2.0 today). Patient essentially making no complaints. On the whole, clinically better. Repeat blood cultures negative at 48+ hours. Objective - Vital Signs/Intake and Output Vital Signs (last 24 hours): Temp Pulse Resp BP Pulse Ox 98.7 F 75 15 164/91 H 97 02/03/17 16:30 02/03/17 16:30 02/03/17 16:30 02/03/17 16:30 02/03/17 16:30 - Medications Medications: Current Medications Acetaminophen (Tylenol 325mg Tab) 650 mg PO Q4H PRN; Protocol PRN Reason: Fever >100.4 F Last Admin: 02/02/17 21:40 Dose: 650 mg Amlodipine Besylate (Norvasc) 5 mg PO DAILY AJ Last Admin: 02/03/17 10:10 Dose: 5 mg Benzocaine/Menthol (Cepacol Sore Throat) 1 kendy MT Q8H PRN; Protocol PRN Reason: Sore Throat Clonidine HCl (Catapres) 0.1 mg PO Q4H PRN; Protocol PRN Reason: hypertension Last Admin: 02/03/17 05:44 Dose: 0.1 mg Diphenoxylate HCl/Atropine (Lomotil 0.025-2.5 Mg Tablet) 1 tab PO QID PRN PRN Reason: diarrhea Last Admin: 02/02/17 21:39 Dose: 1 tab Ergocalciferol (Drisdol 50,000 Intl Units Cap) 1 cap PO Q7D AJ Last Admin: 02/01/17 15:29 Dose: 1 cap Famotidine (Pepcid) 20 mg PO HS AJ PRN Reason: Protocol Last Admin: 02/02/17 21:39 Dose: 20 mg Guaifenesin/Dextromethorphan (Robitussin Dm) 5 ml PO Q6H PRN PRN Reason: Cough Last Admin: 02/02/17 21:39 Dose: 5 ml Ceftriaxone Sodium (Rocephin 1 Gram Ivpb) 100 mls @ 100 mls/hr IVPB 0600 AJ PRN Reason: Protocol Last Admin: 02/03/17 05:42 Dose: 100 mls/hr Insulin Human Regular (Humulin R Low) 0 units SC ACHS AJ PRN Reason: Protocol Last Admin: 02/03/17 16:32 Dose: Not Given Levalbuterol HCl (Xopenex) 0.63 mg IH [id number] PRN; Protocol PRN Reason: Shortness of Breath Last Admin: 02/03/17 07:16 Dose: 0.63 mg Levothyroxine Sodium (Synthroid) 50 mcg PO 0600 AJ PRN Reason: Protocol Last Admin: 02/03/17 05:42 Dose: 50 mcg Lorazepam (Ativan) 0.5 mg PO Q6 PRN PRN Reason: Anxiety Last Admin: 02/02/17 21:39 Dose: 0.5 mg Magnesium Oxide (Mag-Ox) 400 mg PO DAILY [facility] Last Admin: 02/03/17 10:10 Dose: 400 mg Metoprolol Tartrate (Lopressor) 50 mg PO BRKDIN [facility] Last Admin: 02/03/17 08:20 Dose: 50 mg Potassium Chloride (K-Dur 20 Meq Er Tab) 20 meq PO TID AJ PRN Reason: Protocol Last Admin: 02/03/17 13:45 Dose: 20 meq Silver Sulfadiazine (Silvadene 1% 20 Gm) 1 ea TOP DAILY AJ PRN Reason: Protocol Last Admin: 02/03/17 10:11 Dose: 1 applic Thiamine HCl (Vitamin B1 Tab) 100 mg PO DAILY [facility] Last Admin: 02/03/17 10:10 Dose: 100 mg Warfarin Sodium (Coumadin) 10 mg PO 1800 [facility] Last Admin: 02/02/17 17:24 Dose: 10 mg - Labs Labs: 01/30/17 08:10 02/03/17 06:56 PT 18.1 Seconds (9.9-11.8) H 02/03/17 06:56 INR 1.68 (0.93-1.08) H 02/03/17 06:56 - Constitutional Appears: Non-toxic, No Acute Distress, Chronically Ill - Head Exam Head Exam: ATRAUMATIC, NORMOCEPHALIC - Eye Exam Eye Exam: EOMI, PERRL Pupil Exam: NORMAL ACCOMODATION, PERRL - ENT Exam ENT Exam: Mucous Membranes Moist, Normal External Ear Exam, TM's Normal Bilaterally - Neck Exam Neck Exam: Full ROM, Normal Inspection - Respiratory Exam Respiratory Exam: Clear to Ausculation Bilateral, NORMAL BREATHING PATTERN. absent: Rales, Rhonchi, Wheezes - Cardiovascular Exam Cardiovascular Exam: REGULAR RHYTHM, RRR, +S1, +S2 - GI/Abdominal Exam GI & Abdominal Exam: Soft, Normal Bowel Sounds. absent: Distended, Tenderness - Extremities Exam Extremities Exam: Full ROM, Normal Inspection - Neurological Exam Neurological Exam: Alert, Awake, CN II-XII Intact, Oriented x3 - Psychiatric Exam Psychiatric exam: Normal Affect, Normal Mood - Skin Skin Exam: Intact, Normal Color Assessment and Plan - Assessment and Plan (Free Text) Assessment: 76 yo female with sudden fevers up to 102 F when admitted to hospital. Hernandez cultures taken. Obtain ESR, CRP, and Procalcitonin values. Initially on cefepime at 1 gm IV daily given the renal insufficiency of the patient. Patient had abdominal pain as well. Patient states that she feels better today. Consider abdominal X-ray and even Abdominal CT scan - both studies did not show any significant abnormalities. Supportive care. Blood cultures showing gram positive cocci in clusters. PNA FISH strongly suggesting Staph Aureus. MSSA identified. Was on Nafcillin for 7-8 days. Had extensive discussion with the patient and multiple daughters regarding the current findings and potential outcomes. Patient is currently afebrile and feeling overall better. No new complaints at this time. Repeat cultures negative at 48 hours. Patient continues to improve. Nafcillin started on 01/22/2017. Patient doing well overall. Noted sudden rise in creatinine. Nafcillin stopped currently on Rocephin (since 01/30/2017) to complete 14 day course. Creatinine remains elevated with value at 2.0 today. Renal insufficiency. No other new issues with the patient. Thank you for allowing me to participate in the care of the patient, we will follow with you.
[2017-02-03] MEDS: guaiFENesin DM 100 mg-10 mg/5 ml UD PO PRN (17:41)
[2017-02-04] MEDS: guaiFENesin DM 100 mg-10 mg/5 ml UD PO PRN ×2 (00:13→17:23)
[2017-02-04] MEDS: Atropine-Diphenoxylate 0.025-2.5 mg Tab PO PRN (00:13)
[2017-02-04] MEDS: cefTRIAXone 1 gm 100 ML IVPB SCH (05:47)
[2017-02-04] MEDS: Levothyroxine 50 MCG TAB PO SCH ×2 (05:47→06:06)
[2017-02-04] MEDS: Insulin Reg-LOW-Coverage SC SCH ×4 (06:56→21:49)
[2017-02-04 07:30] LABS: INR 2.28 (0.93-1.08)
--- NOTE | 2017-02-04 07:55 | CON ---
DATE: 02/03/2017 This patient was seen and evaluated earlier. The patient has been complaining of ____. This 76-year -old patient with a past medical history of afib on Coumadin, diabetes mellitus, hypertension, anxiet y, hypothyroidism, degenerative joint disease presented to the Emergency Room following a syncopal ep isode. The patient was admitted following a syncopal episode. The patient was found to have spiked a fever of 102. Culture showed staph aureus. The patient on IV antibiotics, initially was nafcillin , and the patient developed acute renal failure, now improving, on ceftriaxone. The patient was noti cash to have profuse loose bowel movements. Stool for Clostridium difficile was negative. GI consult ation was requested to evaluate this. Denies any bleeding per rectum. No abdominal pain at the pres ent time. OTHER PAST MEDICAL HISTORY: Significant for atrial fibrillation, on Coumadin; history of hypertensio n, dyslipidemia, hypothyroidism, glaucoma, arthritis. ALLERGIES: SHE IS ALLERGIC TO LEVOTHYROXIN. SOCIAL HISTORY: Denies smoking. No alcohol. REVIEW OF SYSTEMS: Positive as above. Other 10-point systems reviewed. PHYSICAL EXAMINATION: GENERAL: The patient is lying on the bed, not in acute distress. VITAL SIGNS: Temperature 98.7, pulse 75, blood pressure ____/61, respirations 15, O2 saturation 97. HEENT: Atraumatic, anicteric. NECK: Supple. HEART: S1, S2 heard. LUNGS: Bilateral air entry present. ABDOMEN: Soft. There is no mass palpable. No tenderness. EXTREMITIES: No edema, no cyanosis, no clubbing. LABORATORY DATA: Hemoglobin 10.4, hematocrit 30.3, WBC is 8.1, platelets 299. Chemistry is essentia lly unremarkable. IMPRESSION: This 76-year-old patient admitted following a fall, developed a high fever in the hospit al. Blood cultures grew Staph aureus. The patient initially was on nafcillin, now it was discontinu ed, has acute renal failure/acute kidney injury. This patient is presently on ceftriaxone antibiotic s. Still complains of loose watery stool. Most likely cause for the patient's diarrhea should be an tibiotic-induced. Even though the C. diff is negative, she may benefit from adding p.o. Flagyl. In addition, it may be reasonable to consider giving her some Questran, but the concern is because the p atient is on warfarin, Questran can have effect in absorption. Consider symptomatic management of th e diarrhea with Imodium to slow down. We will continue to closely follow up her care and suggest fur ther management based on the clinical course. The alternative is to consider Questran to give it 2 h ours before and after the medication dosage. Thank you very much for allowing us to participate in the care of the patient presently. Curtis Mckenna MD cc: [id number] TT: 02/03/2017 21:58:04 Confirmation # [id number] Dictation # [id number] ne 02/04/2017 06:54:28
[2017-02-04 07:57] LABS: CALCIUM 9.1 mg/dL (8.4-10.5); MAGNESIUM 1.8 mg/dL (1.7-2.2); POTASSIUM 3.5 mmol/L (3.6-5.0)
[2017-02-04] MEDS ORDERED: Potassium Chloride 20 mEq ER Tab PO SCH (09:45)
[2017-02-04] MEDS: Magnesium Oxide 400 mg Tab UD PO SCH (10:16)
[2017-02-04] MEDS: Silver Sulfadiazine 1% Cream (20 gm) TOP SCH (10:16)
[2017-02-04] MEDS: Potassium Chloride 10 mEq ER Tab PO SCH ×2 (10:21→17:21)
[2017-02-04] MEDS: Levalbuterol 0.63 MG/3 ML Inhal Soln UD IH PRN ×2 (11:04→22:03)
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
--- NOTE | 2017-02-04 18:14 | CP.PCM.PN ---
Subjective - Date & Time of Evaluation Date of Evaluation: 02/04/17 Time of Evaluation: 17:30 - Subjective Subjective: Infectious Disease Follow Up: February 04, 2017 76 yo female with initial presentation with a syncopal episode. She did fall and hit the back of her right arm and ribcage. The patient presented to the ER with dehydration and hypokalemia. The patient developed fevers up to 102.3 F three days ago. Hernandez cultures taken. No leukocytosis. The patient has been in the hospital for four days so far. No episodes of nausea and vomiting. Supportive care. Blood cultures showing gram positive cocci. FISH testing strongly suggesting Staph Aureus infection. MSSA seen in official culture results. The patient has been Afebrile for the past few days. The patient has mild SOB and general weakness. Improving. PT/INR was elevated but now normalized. Patient that she feels better every day. Family in room. Noted creatinine remains elevated (still at 2.0 today). Patient essentially making no complaints. On the whole, clinically better. Repeat blood cultures negative at 48+ hours. Objective - Vital Signs/Intake and Output Vital Signs (last 24 hours): Temp Pulse Resp BP Pulse Ox 98.3 F 77 18 151/83 H 97 02/04/17 10:00 02/04/17 10:16 02/04/17 10:00 02/04/17 17:22 02/04/17 10:00 - Medications Medications: Current Medications Acetaminophen (Tylenol 325mg Tab) 650 mg PO Q4H PRN; Protocol PRN Reason: Fever >100.4 F Last Admin: 02/03/17 21:49 Dose: 650 mg Amlodipine Besylate (Norvasc) 5 mg PO DAILY AJ Last Admin: 02/04/17 10:16 Dose: 5 mg Benzocaine/Menthol (Cepacol Sore Throat) 1 kendy MT Q8H PRN; Protocol PRN Reason: Sore Throat Clonidine HCl (Catapres) 0.1 mg PO Q4H PRN; Protocol PRN Reason: hypertension Last Admin: 02/03/17 05:44 Dose: 0.1 mg Diphenoxylate HCl/Atropine (Lomotil 0.025-2.5 Mg Tablet) 1 tab PO QID PRN PRN Reason: diarrhea Last Admin: 02/04/17 00:13 Dose: 1 tab Ergocalciferol (Drisdol 50,000 Intl Units Cap) 1 cap PO Q7D AJ Last Admin: 02/01/17 15:29 Dose: 1 cap Famotidine (Pepcid) 20 mg PO HS AJ PRN Reason: Protocol Last Admin: 02/03/17 21:48 Dose: 20 mg Guaifenesin/Dextromethorphan (Robitussin Dm) 5 ml PO Q6H PRN PRN Reason: Cough Last Admin: 02/04/17 17:23 Dose: 5 ml Ceftriaxone Sodium (Rocephin 1 Gram Ivpb) 100 mls @ 100 mls/hr IVPB 0600 AJ PRN Reason: Protocol Last Admin: 02/04/17 05:47 Dose: 100 mls/hr Insulin Human Regular (Humulin R Low) 0 units SC ACHS AJ PRN Reason: Protocol Last Admin: 02/04/17 17:13 Dose: Not Given Levalbuterol HCl (Xopenex) 0.63 mg IH [id number] PRN; Protocol PRN Reason: Shortness of Breath Last Admin: 02/04/17 11:04 Dose: 0.63 mg Levothyroxine Sodium (Synthroid) 50 mcg PO 0600 AJ PRN Reason: Protocol Last Admin: 02/04/17 06:06 Dose: Not Given Lorazepam (Ativan) 0.5 mg PO Q6 PRN PRN Reason: Anxiety Last Admin: 02/03/17 21:48 Dose: 0.5 mg Magnesium Oxide (Mag-Ox) 400 mg PO DAILY [facility] Last Admin: 02/04/17 10:16 Dose: 400 mg Metoprolol Tartrate (Lopressor) 50 mg PO BRKDIN [facility] Last Admin: 02/04/17 17:22 Dose: 50 mg Metronidazole (Flagyl) 500 mg PO Q8 AJ PRN Reason: Protocol Last Admin: 02/04/17 17:21 Dose: 500 mg Potassium Chloride (Klor-Con 10) 30 meq PO TID AJ PRN Reason: Protocol Last Admin: 02/04/17 17:21 Dose: 30 meq Silver Sulfadiazine (Silvadene 1% 20 Gm) 1 ea TOP DAILY AJ PRN Reason: Protocol Last Admin: 02/04/17 10:16 Dose: 1 applic Warfarin Sodium (Coumadin) 2.5 mg PO 1800 [facility] Last Admin: 02/04/17 17:20 Dose: 2.5 mg - Labs Labs: 01/30/17 08:10 02/04/17 07:09 PT 24.6 Seconds (9.9-11.8) H 02/04/17 07:09 INR 2.28 (0.93-1.08) H 02/04/17 07:09 - Constitutional Appears: Non-toxic, No Acute Distress, Chronically Ill - Head Exam Head Exam: ATRAUMATIC, NORMOCEPHALIC - Eye Exam Eye Exam: EOMI, PERRL Pupil Exam: NORMAL ACCOMODATION, PERRL - ENT Exam ENT Exam: Mucous Membranes Moist, Normal External Ear Exam, TM's Normal Bilaterally - Neck Exam Neck Exam: Full ROM, Normal Inspection - Respiratory Exam Respiratory Exam: Clear to Ausculation Bilateral, NORMAL BREATHING PATTERN. absent: Rales, Rhonchi, Wheezes - Cardiovascular Exam Cardiovascular Exam: REGULAR RHYTHM, RRR, +S1, +S2 - GI/Abdominal Exam GI & Abdominal Exam: Soft, Normal Bowel Sounds. absent: Distended, Tenderness - Extremities Exam Extremities Exam: Full ROM, Normal Inspection - Neurological Exam Neurological Exam: Alert, Awake, CN II-XII Intact, Oriented x3 - Psychiatric Exam Psychiatric exam: Normal Affect, Normal Mood - Skin Skin Exam: Intact, Normal Color Assessment and Plan - Assessment and Plan (Free Text) Assessment: 76 yo female with sudden fevers up to 102 F when admitted to hospital. Hernandez cultures taken. Obtain ESR, CRP, and Procalcitonin values. Initially on cefepime at 1 gm IV daily given the renal insufficiency of the patient. Patient had abdominal pain as well. Patient states that she feels better today. Consider abdominal X-ray and even Abdominal CT scan - both studies did not show any significant abnormalities. Supportive care. Blood cultures showing gram positive cocci in clusters. PNA FISH strongly suggesting Staph Aureus. MSSA identified. Was on Nafcillin for 7-8 days. Had extensive discussion with the patient and multiple daughters regarding the current findings and potential outcomes. Patient is currently afebrile and feeling overall better. No new complaints at this time. Repeat cultures negative at 48 hours. Patient continues to improve. Nafcillin started on 01/22/2017. Patient doing well overall. Noted sudden rise in creatinine. Nafcillin was stopped currently on Rocephin (since 01/30/2017) to complete 14 day course (02/05- is last day of treatment). Creatinine still remains elevated with value at 2.0 today. Renal insufficiency. No other new issues with the patient. Overall, the patient is comfortable. Thank you for allowing me to participate in the care of the patient, we will follow with you.
[2017-02-05] MEDS: cefTRIAXone 1 gm 100 ML IVPB SCH (06:28)
[2017-02-05] MEDS: Insulin Reg-LOW-Coverage SC SCH ×4 (06:30→22:06)
[2017-02-05] MEDS: Levothyroxine 50 MCG TAB PO SCH (06:30)
[2017-02-05 07:54] LABS: HEMATOCRIT 25.9 % (36.0-48.0); MEAN CELL VOLUME 92.2 fL (80.0-105.0); MEAN CORPUSCULAR HEMOGLOBIN 31.7 pg (25.0-35.0); MEAN CORPUSCULAR HGB CONC 34.4 g/dl (31.0-37.0); MEAN PLATELET VOLUME 9.3 fl (7.0-11.0); RED CELL DISTRIBUTION WIDTH 16.1 % (11.5-14.5); WHITE BLOOD COUNT 4.9 10^3/ul (4.5-11.0)
[2017-02-05 08:03] LABS: INR 2.53 (0.93-1.08)
[2017-02-05 08:30] LABS: ALB/GLOB RATIO 0.8 (1.1-1.8); BILIRUBIN,TOTAL 0.8 mg/dL (0.2-1.3); CALCIUM 9.1 mg/dL (8.4-10.5); MAGNESIUM 1.7 mg/dL (1.7-2.2); TOTAL PROTEIN 8.2 g/dL (5.8-8.3)
--- NOTE | 2017-02-05 08:40 | RAD ---
HISTORY: r/o pneumonia COMPARISON: 01/22/2017 at 3 o TECHNIQUE: Chest PA and lateral FINDINGS: LUNGS: The prior right basal infiltrate has cleared. No interval consolidation. PLEURA: No significant pleural effusion identified. No pneumothorax apparent. CARDIOVASCULAR: Mild cardiomegaly. Aortic knob atherosclerotic vascular calcification. OSSEOUS STRUCTURES: Acromioclavicular joint arthrosis. Minimal thoracic spondylosis VISUALIZED UPPER ABDOMEN: Normal. OTHER FINDINGS: Interval left PICC line inserted tip in right atrium. No gross pneumothorax IMPRESSION: Interval clearance -right lower lobe infiltrate. No interval pathology appreciated Interval left PICC line insertion without gross pneumothorax appreciated
[2017-02-05] MEDS ORDERED: Potassium Chloride 10 mEq ER Tab PO SCH (10:00)
[2017-02-05] MEDS: Magnesium Oxide 400 mg Tab UD PO SCH (10:04)
[2017-02-05] MEDS: Silver Sulfadiazine 1% Cream (20 gm) TOP SCH (10:04)
[2017-02-05 10:34] LABS: IRON 71 ug/dL (45-180)
[2017-02-05] MEDS: Potassium Chloride 10 mEq ER Tab PO SCH ×2 (13:51→17:05)
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
--- NOTE | 2017-02-05 17:02 | CON ---
DATE: 02/05/2017 This is a 76-year-old woman with anemia. She has many medical problems. She has atrial fibrillation , in the past on Coumadin. She has diabetes. She was admitted for a fever, and she found to have st aph sepsis complicated by renal insufficiency and anemia, with the hemoglobin down to 8.9, MCV of 92, platelet count 262, and iron saturation was normal at 24%. PHYSICAL EXAMINATION: SKIN: No petechiae, no bruises. HENT: Anicteric. NODES: None palpable in the axillary, cervical, supraclavicular or inguinal regions. LUNGS: Clear at present. No vertebral tenderness. HEART: S1, S2. ABDOMEN: Shows no liver, no spleen, no tenderness, no ascites, and no rebound. EXTREMITIES: No edema. CENTRAL NERVOUS SYSTEM: No focal finding. The patient seems to have an anemia of chronic disease secondary to these multifactorial problems. I told her that as an outpatient after this sorts out and her infection seems to be better, she is now in rehab, I would recommend that she have from Dr. Mcconnell a CBC, and/or her link trainer mechanic a CBC, and a BU N and creatinine again. If she is continuing to have anemia and this has not been completely resolve d, I can always see her as an outpatient. The other thing is that she has never had a colonoscopy as far she can remember, and I would recommend that she have a screening colonoscopy regardless, thou gh not quite now while she is recuperating from the infection. Peter Mcdaniel MD cc: [id number] TT: 02/05/2017 17:01:51 Confirmation # [id number] Dictation # [id number]
[2017-02-05 18:38] LABS: FOLATE 10.5 ng/mL
[2017-02-05] MEDS: Levalbuterol 0.63 MG/3 ML Inhal Soln UD IH PRN (19:59)
[2017-02-05] MEDS: guaiFENesin DM 100 mg-10 mg/5 ml UD PO PRN (21:23)
[2017-02-05] MEDS: Atropine-Diphenoxylate 0.025-2.5 mg Tab PO PRN (21:23)
--- NOTE | 2017-02-05 21:23 | CP.PCM.PN ---
Subjective - Date & Time of Evaluation Date of Evaluation: 02/05/17 Time of Evaluation: 11:00 - Subjective Subjective: Seen and examined earlier today. Denies episodes of diarrhea, No acute overnight events reported. Objective - Vital Signs/Intake and Output Vital Signs (last 24 hours): Temp Pulse Resp BP Pulse Ox 97.8 F 64 20 165/85 H 98 02/05/17 10:00 02/05/17 10:04 02/05/17 10:00 02/05/17 10:04 02/05/17 10:00 - Medications Medications: Current Medications Amlodipine Besylate (Norvasc) 5 mg PO DAILY AJ Last Admin: 02/05/17 10:04 Dose: 5 mg Clonidine HCl (Catapres) 0.1 mg PO Q4H PRN; Protocol PRN Reason: hypertension Last Admin: 02/03/17 05:44 Dose: 0.1 mg Diphenoxylate HCl/Atropine (Lomotil 0.025-2.5 Mg Tablet) 1 tab PO QID PRN PRN Reason: diarrhea Last Admin: 02/04/17 00:13 Dose: 1 tab Ergocalciferol (Drisdol 50,000 Intl Units Cap) 1 cap PO Q7D AJ Last Admin: 02/01/17 15:29 Dose: 1 cap Guaifenesin/Dextromethorphan (Robitussin Dm) 5 ml PO Q6H PRN PRN Reason: Cough Last Admin: 02/04/17 17:23 Dose: 5 ml Ceftriaxone Sodium (Rocephin 1 Gram Ivpb) 100 mls @ 100 mls/hr IVPB 0600 AJ PRN Reason: Protocol Last Admin: 02/05/17 06:28 Dose: 100 mls/hr Insulin Human Regular (Humulin R Low) 0 units SC ACHS AJ PRN Reason: Protocol Last Admin: 02/05/17 06:30 Dose: Not Given Levalbuterol HCl (Xopenex) 0.63 mg IH [id number] PRN; Protocol PRN Reason: Shortness of Breath Last Admin: 02/04/17 22:03 Dose: 0.63 mg Levothyroxine Sodium (Synthroid) 50 mcg PO 0600 AJ PRN Reason: Protocol Last Admin: 02/05/17 06:30 Dose: Not Given Lorazepam (Ativan) 0.5 mg PO Q6 PRN PRN Reason: Anxiety Last Admin: 02/04/17 21:58 Dose: 0.5 mg Magnesium Oxide (Mag-Ox) 400 mg PO DAILY [facility] Last Admin: 02/05/17 10:04 Dose: 400 mg Metoprolol Tartrate (Lopressor) 50 mg PO BRKDIN [facility] Last Admin: 02/05/17 06:46 Dose: 50 mg Metronidazole (Flagyl) 500 mg PO Q8 AJ PRN Reason: Protocol Last Admin: 02/05/17 06:29 Dose: 500 mg Potassium Chloride (Klor-Con 10) 30 meq PO TID AJ PRN Reason: Protocol Silver Sulfadiazine (Silvadene 1% 20 Gm) 1 ea TOP DAILY [facility] PRN Reason: Protocol Last Admin: 02/05/17 10:04 Dose: 1 applic Spironolactone (Aldactone) 25 mg PO BID AJ Warfarin Sodium (Coumadin) 2 mg PO 1800 [facility] - Labs Labs: 02/05/17 07:40 02/05/17 07:40 PT 27.3 Seconds (9.9-11.8) H 02/05/17 07:40 INR 2.53 (0.93-1.08) H 02/05/17 07:40 - Constitutional Appears: No Acute Distress - Eye Exam Eye Exam: Normal appearance. absent: Scleral icterus - ENT Exam ENT Exam: Mucous Membranes Moist - Neck Exam Neck Exam: Normal Inspection - Respiratory Exam Respiratory Exam: Clear to Ausculation Bilateral, NORMAL BREATHING PATTERN. absent: Respiratory Distress - Cardiovascular Exam Cardiovascular Exam: +S1, +S2 - GI/Abdominal Exam GI & Abdominal Exam: Soft, Normal Bowel Sounds. absent: Guarding, Tenderness, Rebound - Neurological Exam Neurological Exam: Alert, Awake, Oriented x3 Assessment and Plan - Assessment and Plan (Free Text) Assessment: ASSESSMENT: S/P Fall Fever Bacteremia (+) Staph aureus was on Naficilllin Diarrhea, cdiff negative, maybe antibiotic induced H/O Atrial Fibrillation Acute Renal Failure PLAN: on Iv antiviotice Ceftriaxone, Flagyl On Lomitil prn on Coumadin monitor electrolytes on Mg supplemment Seen and discussed with Dr. Mckenna
--- NOTE | 2017-02-05 22:28 | CP.PCM.PN ---
Subjective - Date & Time of Evaluation Date of Evaluation: 02/05/17 Time of Evaluation: 21:15 - Subjective Subjective: Infectious Disease Follow Up: February 05, 2017 76 yo female with initial presentation with a syncopal episode. She did fall and hit the back of her right arm and ribcage. The patient presented to the ER with dehydration and hypokalemia. The patient developed fevers up to 102.3 F three days ago. Hernandez cultures taken. No leukocytosis. The patient has been in the hospital for four days so far. No episodes of nausea and vomiting. Supportive care. Blood cultures showing gram positive cocci. FISH testing strongly suggesting Staph Aureus infection. MSSA seen in official culture results. The patient has been Afebrile for the past few days. The patient has mild SOB and general weakness. Improving. PT/INR was elevated but now normalized. Patient that she feels better every day. Family in room. Noted creatinine remains elevated (still at 2.0 today). Patient essentially making no complaints. On the whole, clinically better. Repeat blood cultures negative at 48+ hours. The patient without diarrhea episodes in the past 24 hours. Objective - Vital Signs/Intake and Output Vital Signs (last 24 hours): Temp Pulse Resp BP Pulse Ox 98.4 F 74 14 152/80 H 99 02/05/17 16:00 02/05/17 17:08 02/05/17 16:00 02/05/17 17:08 02/05/17 16:00 - Medications Medications: Current Medications Amlodipine Besylate (Norvasc) 5 mg PO DAILY [facility] Last Admin: 02/05/17 10:04 Dose: 5 mg Clonidine HCl (Catapres) 0.1 mg PO Q4H PRN; Protocol PRN Reason: hypertension Last Admin: 02/03/17 05:44 Dose: 0.1 mg Diphenoxylate HCl/Atropine (Lomotil 0.025-2.5 Mg Tablet) 1 tab PO QID PRN PRN Reason: diarrhea Last Admin: 02/05/17 21:23 Dose: 1 tab Ergocalciferol (Drisdol 50,000 Intl Units Cap) 1 cap PO Q7D AJ Last Admin: 02/01/17 15:29 Dose: 1 cap Guaifenesin/Dextromethorphan (Robitussin Dm) 5 ml PO Q6H PRN PRN Reason: Cough Last Admin: 02/05/17 21:23 Dose: 5 ml Ceftriaxone Sodium (Rocephin 1 Gram Ivpb) 100 mls @ 100 mls/hr IVPB 0600 AJ PRN Reason: Protocol Last Admin: 02/05/17 06:28 Dose: 100 mls/hr Insulin Human Regular (Humulin R Low) 0 units SC ACHS AJ PRN Reason: Protocol Last Admin: 02/05/17 22:06 Dose: Not Given Levalbuterol HCl (Xopenex) 0.63 mg IH [id number] PRN; Protocol PRN Reason: Shortness of Breath Last Admin: 02/05/17 19:59 Dose: 0.63 mg Levothyroxine Sodium (Synthroid) 50 mcg PO 0600 AJ PRN Reason: Protocol Last Admin: 02/05/17 06:30 Dose: Not Given Lorazepam (Ativan) 0.5 mg PO Q6 PRN PRN Reason: Anxiety Last Admin: 02/05/17 21:24 Dose: 0.5 mg Magnesium Oxide (Mag-Ox) 400 mg PO DAILY [facility] Last Admin: 02/05/17 10:04 Dose: 400 mg Metoprolol Tartrate (Lopressor) 50 mg PO BRKDIN [facility] Last Admin: 02/05/17 17:08 Dose: 50 mg Metronidazole (Flagyl) 500 mg PO Q8 AJ PRN Reason: Protocol Last Admin: 02/05/17 21:23 Dose: 500 mg Potassium Chloride (Klor-Con 10) 30 meq PO TID AJ PRN Reason: Protocol Last Admin: 02/05/17 17:05 Dose: 30 meq Silver Sulfadiazine (Silvadene 1% 20 Gm) 1 ea TOP DAILY AJ PRN Reason: Protocol Last Admin: 02/05/17 10:04 Dose: 1 applic Spironolactone (Aldactone) 25 mg PO BID [facility] Last Admin: 02/05/17 17:06 Dose: 25 mg Warfarin Sodium (Coumadin) 2 mg PO 1800 [facility] Last Admin: 02/05/17 17:04 Dose: 2 mg - Labs Labs: 02/05/17 07:40 02/05/17 07:40 PT 27.3 Seconds (9.9-11.8) H 02/05/17 07:40 INR 2.53 (0.93-1.08) H 02/05/17 07:40 - Constitutional Appears: Non-toxic, No Acute Distress, Chronically Ill - Head Exam Head Exam: ATRAUMATIC, NORMOCEPHALIC - Eye Exam Eye Exam: EOMI, PERRL Pupil Exam: NORMAL ACCOMODATION, PERRL - ENT Exam ENT Exam: Mucous Membranes Moist, Normal External Ear Exam, TM's Normal Bilaterally - Neck Exam Neck Exam: Full ROM, Normal Inspection - Respiratory Exam Respiratory Exam: Clear to Ausculation Bilateral, NORMAL BREATHING PATTERN. absent: Rales, Rhonchi, Wheezes - Cardiovascular Exam Cardiovascular Exam: REGULAR RHYTHM, RRR, +S1, +S2 - GI/Abdominal Exam GI & Abdominal Exam: Soft, Normal Bowel Sounds. absent: Distended, Tenderness - Extremities Exam Extremities Exam: Full ROM, Normal Inspection - Neurological Exam Neurological Exam: Alert, Awake, CN II-XII Intact, Oriented x3 - Psychiatric Exam Psychiatric exam: Normal Affect, Normal Mood - Skin Skin Exam: Intact, Normal Color Assessment and Plan - Assessment and Plan (Free Text) Assessment: 76 yo female with sudden fevers up to 102 F when admitted to hospital. Hernandez cultures taken. Obtain ESR, CRP, and Procalcitonin values. Initially on cefepime at 1 gm IV daily given the renal insufficiency of the patient. Patient had abdominal pain as well. Patient states that she feels better today. Consider abdominal X-ray and even Abdominal CT scan - both studies did not show any significant abnormalities. Supportive care. Blood cultures showing gram positive cocci in clusters. PNA FISH strongly suggesting Staph Aureus. MSSA identified. Was on Nafcillin for 7-8 days. Had extensive discussion with the patient and multiple daughters regarding the current findings and potential outcomes. Patient is currently afebrile and feeling overall better. No new complaints at this time. Repeat cultures negative at 48 hours. Patient continues to improve. Nafcillin started on 01/22/2017. Patient doing well overall. Noted sudden rise in creatinine. Nafcillin was stopped currently on Rocephin (since 01/30/2017) to complete 14 day course (02/05- is last day of treatment). Creatinine still remains elevated with value at 2.0 today. Renal insufficiency. No other new issues with the patient. Overall, the patient is comfortable. No diarrhea in past 24 hours. Thank you for allowing me to participate in the care of the patient, we will follow with you.
[2017-02-06] MEDS: cefTRIAXone 1 gm 100 ML IVPB SCH (06:03)
[2017-02-06] MEDS: Levothyroxine 50 MCG TAB PO SCH (06:03)
[2017-02-06] MEDS: Insulin Reg-LOW-Coverage SC SCH ×4 (06:32→22:53)
[2017-02-06 07:21] LABS: HEMATOCRIT 25.9 % (36.0-48.0); MEAN CELL VOLUME 93.2 fL (80.0-105.0); MEAN CORPUSCULAR HEMOGLOBIN 31.7 pg (25.0-35.0); MEAN PLATELET VOLUME 9.2 fl (7.0-11.0); RED CELL DISTRIBUTION WIDTH 16.6 % (11.5-14.5); WHITE BLOOD COUNT 5.1 10^3/ul (4.5-11.0)
[2017-02-06 07:29] LABS: INR 2.48 (0.93-1.08)
[2017-02-06 08:11] LABS: MAGNESIUM 1.7 mg/dL (1.7-2.2); POTASSIUM 4.1 mmol/L (3.6-5.0)
[2017-02-06] MEDS: Magnesium Oxide 400 mg Tab UD PO SCH (11:14)
[2017-02-06] MEDS: Silver Sulfadiazine 1% Cream (20 gm) TOP SCH (11:15)
[2017-02-06] MEDS: Atropine-Diphenoxylate 0.025-2.5 mg Tab PO PRN (11:20)
--- NOTE | 2017-02-06 13:55 | PN ---
DATE: 02/06/2017 This 76-year-old female was examined at her bedside. Her case was reviewed in detail with herself, her nurse Kim Isaac and Dr. George Mora from infectious disease, Dr. Mcdaniel from hematology and Dr. Mckenna from gastroenterology. The patient continues to improve slowly. She is continuing on IV Rocephin under the direction of Dr. Mora for Staph aureus sepsis. The patient also had complications of right lower lobe pneumonia, now cleared on chest x-ray and stool C. diff negative gastroenteritis. Her clinical picture was also complicated by hypokalemia and hypomagnesemia in the setting of gastroenteritis and deconditioning. PHYSICAL EXAMINATION: VITAL SIGNS: Temperature 98.4, respirations 18, pulse 77, blood pressure 150/ 74 with a pulse ox of 98% on room air. HEAD: Normocephalic, atraumatic. EYES: No icterus. EARS: Clear. THROAT: Noninjected. NECK: Supple. HEART: Irregular S1, S2. LUNGS: Clear. ABDOMEN: Soft. EXTREMITIES: No edema. SKIN: Without rash. NEUROLOGIC: Intact. PSYCHOLOGICAL: Alert. VASCULAR: Legs warm to touch. LABORATORY DATA: White count 5100, hemoglobin 8.8, hematocrit 25.9, platelets 275,000. PT/INR 2.48. Sodium 141, K 4.1, chloride 107, bicarb 22, BUN 27, creatinine 1.9, random blood sugar 122. Iron 71, TIBC 243, percent saturation 29, ferritin 219, B12 of 833 and folate 10.5. Stool for occult blood negative x 2. IMPRESSION: A 76-year-old female with multiple medical problems including acute Staphylococcus aureus sepsis, right lower lobe pneumonia, acute-on- chronic renal failure, gastroenteritis, hypokalemia, hypomagnesemia, anxiety neurosis, chronic hypertension, chronic atrial fibrillation, vitamin D deficiency, insulin-dependent diabetes mellitus, hypothyroidism, anemia of acute illness, anemia of chronic disease. PLAN: As discussed with Dr. Mcdaniel is to stay the course and continue with Xopenex inhalational therapy p.r.n., Synthroid, Norvasc, mag oxide, metoprolol, Lomotil, insulin, oral Flagyl, vitamin D, warfarin 2 mg p.o. daily, and Aldactone 25 mg p.o. b.i.d. Her stools are slowly becoming more formed. I will check a basic metabolic panel daily to ensure stability of her electrolytes including potassium and magnesium while trying to taper her off supplements. I have ordered a serum immunoelectrophoresis for completeness sake. She will continue on her IV Rocephin under the direction of Dr. George Mora. She remains on aspiration precautions, fall precautions, isolation precautions and is receiving physical therapy for reconditioning and gait training. Overall prognosis is guarded. She was advised to schedule and outpatient follow up with GI for endoscopy and colonoscopy. She has declined this recommendation in the past. Greater than fifty minutes was spent in the care, coordination of care, discussion of care and review of care for this patient today. Ladan Mcconnell MD cc: [phone] TT: 02/06/2017 13:55:25 Confirmation # [id number] Dictation # [id number] sn MTDD
--- NOTE | 2017-02-06 19:22 | CP.PCM.PN ---
Subjective - Date & Time of Evaluation Date of Evaluation: 02/06/17 Time of Evaluation: 18:00 - Subjective Subjective: Infectious Disease Follow Up: February 06, 2017 76 yo female with initial presentation with a syncopal episode. She did fall and hit the back of her right arm and ribcage. The patient presented to the ER with dehydration and hypokalemia. The patient developed fevers up to 102.3 F three days ago. Hernandez cultures taken. No leukocytosis. The patient has been in the hospital for four days so far. No episodes of nausea and vomiting. Supportive care. Blood cultures showing gram positive cocci. FISH testing strongly suggesting Staph Aureus infection. MSSA seen in official culture results. The patient has been Afebrile for the past few days. The patient has mild SOB and general weakness. Improving. PT/INR was elevated but now normalized. Patient that she feels better every day. Family in room. Noted creatinine remains elevated (still at 2.0 today). Patient essentially making no complaints. On the whole, clinically better. Repeat blood cultures negative at 48+ hours. The patient without diarrhea episodes in the past 24 hours. Off antibiotics. Objective - Vital Signs/Intake and Output Vital Signs (last 24 hours): Temp Pulse Resp BP Pulse Ox 98.1 F 74 18 147/88 98 02/06/17 16:00 02/06/17 18:06 02/06/17 16:00 02/06/17 18:06 02/06/17 16:00 - Medications Medications: Current Medications Amlodipine Besylate (Norvasc) 5 mg PO DAILY [facility] Last Admin: 02/06/17 11:14 Dose: 5 mg Clonidine HCl (Catapres) 0.1 mg PO Q4H PRN; Protocol PRN Reason: hypertension Last Admin: 02/03/17 05:44 Dose: 0.1 mg Diphenoxylate HCl/Atropine (Lomotil 0.025-2.5 Mg Tablet) 1 tab PO QID PRN PRN Reason: diarrhea Last Admin: 02/06/17 11:20 Dose: 1 tab Ergocalciferol (Drisdol 50,000 Intl Units Cap) 1 cap PO Q7D AJ Last Admin: 02/01/17 15:29 Dose: 1 cap Guaifenesin/Dextromethorphan (Robitussin Dm) 5 ml PO Q6H PRN PRN Reason: Cough Last Admin: 02/05/17 21:23 Dose: 5 ml Insulin Human Regular (Humulin R Low) 0 units SC ACHS AJ PRN Reason: Protocol Last Admin: 02/06/17 16:52 Dose: Not Given Levalbuterol HCl (Xopenex) 0.63 mg IH [id number] PRN; Protocol PRN Reason: Shortness of Breath Last Admin: 02/05/17 19:59 Dose: 0.63 mg Levothyroxine Sodium (Synthroid) 50 mcg PO 0600 AJ PRN Reason: Protocol Last Admin: 02/06/17 06:03 Dose: Not Given Lorazepam (Ativan) 0.5 mg PO Q6 PRN PRN Reason: Anxiety Last Admin: 02/05/17 21:24 Dose: 0.5 mg Magnesium Oxide (Mag-Ox) 400 mg PO DAILY [facility] Last Admin: 02/06/17 11:14 Dose: 400 mg Metoprolol Tartrate (Lopressor) 50 mg PO BRKDIN [facility] Last Admin: 02/06/17 18:06 Dose: 50 mg Metronidazole (Flagyl) 500 mg PO Q8 AJ PRN Reason: Protocol Last Admin: 02/06/17 13:35 Dose: 500 mg Silver Sulfadiazine (Silvadene 1% 20 Gm) 1 ea TOP DAILY [facility] PRN Reason: Protocol Last Admin: 02/06/17 11:15 Dose: Not Given Spironolactone (Aldactone) 25 mg PO BID [facility] Last Admin: 02/06/17 18:07 Dose: 25 mg Warfarin Sodium (Coumadin) 2 mg PO 1800 [facility] Last Admin: 02/06/17 18:07 Dose: 2 mg - Labs Labs: 02/06/17 07:00 02/06/17 07:00 PT 26.8 Seconds (9.9-11.8) H 02/06/17 07:00 INR 2.48 (0.93-1.08) H 02/06/17 07:00 - Constitutional Appears: Non-toxic, No Acute Distress, Chronically Ill - Head Exam Head Exam: ATRAUMATIC, NORMOCEPHALIC - Eye Exam Eye Exam: EOMI, PERRL Pupil Exam: NORMAL ACCOMODATION, PERRL - ENT Exam ENT Exam: Mucous Membranes Moist, Normal External Ear Exam, TM's Normal Bilaterally - Neck Exam Neck Exam: Full ROM, Normal Inspection - Respiratory Exam Respiratory Exam: Clear to Ausculation Bilateral, NORMAL BREATHING PATTERN. absent: Rales, Rhonchi, Wheezes - Cardiovascular Exam Cardiovascular Exam: REGULAR RHYTHM, RRR, +S1, +S2 - GI/Abdominal Exam GI & Abdominal Exam: Soft, Normal Bowel Sounds. absent: Distended, Tenderness - Exam External exam: absent: Swelling - Extremities Exam Extremities Exam: Full ROM, Normal Inspection - Neurological Exam Neurological Exam: Alert, Awake, CN II-XII Intact, Oriented x3 - Psychiatric Exam Psychiatric exam: Normal Affect, Normal Mood - Skin Skin Exam: Intact, Normal Color Assessment and Plan - Assessment and Plan (Free Text) Assessment: 76 yo female with sudden fevers up to 102 F when admitted to hospital. Hernandez cultures taken. Obtain ESR, CRP, and Procalcitonin values. Initially on cefepime at 1 gm IV daily given the renal insufficiency of the patient. Patient had abdominal pain as well. Patient states that she feels better today. Consider abdominal X-ray and even Abdominal CT scan - both studies did not show any significant abnormalities. Supportive care. Blood cultures showing gram positive cocci in clusters. PNA FISH strongly suggesting Staph Aureus. MSSA identified. Was on Nafcillin for 7-8 days. Had extensive discussion with the patient and multiple daughters regarding the current findings and potential outcomes. Patient is currently afebrile and feeling overall better. No new complaints at this time. Repeat cultures negative at 48 hours. Patient continues to improve. Nafcillin started on 01/22/2017. Patient doing well overall. Noted sudden rise in creatinine. Nafcillin was stopped currently on Rocephin (since 01/30/2017) to complete 14 day course (02/05- is last day of treatment). Creatinine still remains elevated with value at 2.0 today. Renal insufficiency. No other new issues with the patient. Overall, the patient is comfortable. No diarrhea in past 24 hours. Antibiotics completed. Thank you for allowing me to participate in the care of the patient, we will follow with you.
[2017-02-07] MEDS: Levothyroxine 50 MCG TAB PO SCH (06:13)
[2017-02-07 06:41] LABS: INR 2.6 (0.93-1.08)
[2017-02-07] MEDS: Insulin Reg-LOW-Coverage SC SCH ×4 (06:56→22:00)
[2017-02-07 07:57] LABS: CALCIUM 9.3 mg/dL (8.4-10.5); MAGNESIUM 1.7 mg/dL (1.7-2.2); POTASSIUM 3.9 mmol/L (3.6-5.0)
[2017-02-07] MEDS: Levalbuterol 0.63 MG/3 ML Inhal Soln UD IH PRN (09:08)
[2017-02-07] MEDS: Magnesium Oxide 400 mg Tab UD PO SCH (09:28)
[2017-02-07] MEDS: Silver Sulfadiazine 1% Cream (20 gm) TOP SCH (12:14)
--- NOTE | 2017-02-07 16:52 | CP.PCM.PN ---
Subjective - Date & Time of Evaluation Date of Evaluation: 02/07/17 Time of Evaluation: 16:00 - Subjective Subjective: Infectious Disease Follow Up: February 07, 2017 76 yo female with initial presentation with a syncopal episode. She did fall and hit the back of her right arm and ribcage. The patient presented to the ER with dehydration and hypokalemia. The patient developed fevers up to 102.3 F three days ago. Hernandez cultures taken. No leukocytosis. The patient has been in the hospital for four days so far. No episodes of nausea and vomiting. Supportive care. Blood cultures showing gram positive cocci. FISH testing strongly suggesting Staph Aureus infection. MSSA seen in official culture results. The patient has been Afebrile for the past few days. The patient has mild SOB and general weakness. Improving. PT/INR was elevated but now normalized. Patient that she feels better every day. Family in room. Noted creatinine remains elevated (still at 2.0 today). Patient essentially making no complaints. On the whole, clinically better. Antibiotics completed at this time. Repeat blood cultures negative at 48+ hours. The patient without diarrhea episodes in the past 24 hours. Off antibiotics. Objective - Vital Signs/Intake and Output Vital Signs (last 24 hours): Temp Pulse Resp BP Pulse Ox 98.5 F 76 18 127/61 99 02/07/17 16:00 02/07/17 16:00 02/07/17 16:00 02/07/17 16:00 02/07/17 16:00 - Medications Medications: Current Medications Amlodipine Besylate (Norvasc) 5 mg PO DAILY [facility] Last Admin: 02/07/17 11:00 Dose: 5 mg Clonidine HCl (Catapres) 0.1 mg PO Q4H PRN; Protocol PRN Reason: hypertension Last Admin: 02/03/17 05:44 Dose: 0.1 mg Diphenoxylate HCl/Atropine (Lomotil 0.025-2.5 Mg Tablet) 1 tab PO QID PRN PRN Reason: diarrhea Last Admin: 02/06/17 11:20 Dose: 1 tab Ergocalciferol (Drisdol 50,000 Intl Units Cap) 1 cap PO Q7D AJ Last Admin: 02/01/17 15:29 Dose: 1 cap Guaifenesin/Dextromethorphan (Robitussin Dm) 5 ml PO Q6H PRN PRN Reason: Cough Last Admin: 02/05/17 21:23 Dose: 5 ml Insulin Human Regular (Humulin R Low) 0 units SC ACHS [facility] PRN Reason: Protocol Last Admin: 02/07/17 12:11 Dose: Not Given Levalbuterol HCl (Xopenex) 0.63 mg IH [id number] PRN; Protocol PRN Reason: Shortness of Breath Last Admin: 02/07/17 09:08 Dose: 0.63 mg Levothyroxine Sodium (Synthroid) 50 mcg PO 0600 [facility] PRN Reason: Protocol Last Admin: 02/07/17 06:13 Dose: Not Given Lorazepam (Ativan) 0.5 mg PO Q6 PRN PRN Reason: Anxiety Last Admin: 02/06/17 22:55 Dose: 0.5 mg Magnesium Oxide (Mag-Ox) 400 mg PO DAILY [facility] Last Admin: 02/07/17 09:28 Dose: 400 mg Metoprolol Tartrate (Lopressor) 50 mg PO BRKDIN [facility] Last Admin: 02/07/17 08:30 Dose: 50 mg Metronidazole (Flagyl) 500 mg PO Q8 [facility] PRN Reason: Protocol Last Admin: 02/07/17 13:54 Dose: 500 mg Silver Sulfadiazine (Silvadene 1% 20 Gm) 1 ea TOP DAILY [facility] PRN Reason: Protocol Last Admin: 02/07/17 12:14 Dose: Not Given Spironolactone (Aldactone) 25 mg PO BID [facility] Last Admin: 02/07/17 09:28 Dose: 25 mg Warfarin Sodium (Coumadin) 1 mg PO 1800 [facility] - Labs Labs: 02/06/17 07:00 02/07/17 06:15 PT 28.1 Seconds (9.9-11.8) H 02/07/17 06:15 INR 2.60 (0.93-1.08) H 02/07/17 06:15 - Constitutional Appears: Non-toxic, No Acute Distress, Chronically Ill - Head Exam Head Exam: ATRAUMATIC, NORMOCEPHALIC - Eye Exam Eye Exam: EOMI, PERRL Pupil Exam: NORMAL ACCOMODATION, PERRL - ENT Exam ENT Exam: Mucous Membranes Moist, Normal External Ear Exam, TM's Normal Bilaterally - Neck Exam Neck Exam: Full ROM, Normal Inspection - Respiratory Exam Respiratory Exam: Clear to Ausculation Bilateral, NORMAL BREATHING PATTERN. absent: Rales, Rhonchi, Wheezes - Cardiovascular Exam Cardiovascular Exam: REGULAR RHYTHM, RRR, +S1, +S2 - GI/Abdominal Exam GI & Abdominal Exam: Soft, Normal Bowel Sounds. absent: Distended, Tenderness - Extremities Exam Extremities Exam: Full ROM, Normal Inspection - Neurological Exam Neurological Exam: Alert, Awake, CN II-XII Intact, Oriented x3 - Psychiatric Exam Psychiatric exam: Normal Affect, Normal Mood - Skin Skin Exam: Intact, Normal Color Assessment and Plan - Assessment and Plan (Free Text) Assessment: 76 yo female with sudden fevers up to 102 F when admitted to hospital. Hernandez cultures taken. Obtain ESR, CRP, and Procalcitonin values. Initially on cefepime at 1 gm IV daily given the renal insufficiency of the patient. Patient had abdominal pain as well. Patient states that she feels better today. Consider abdominal X-ray and even Abdominal CT scan - both studies did not show any significant abnormalities. Supportive care. Blood cultures showing gram positive cocci in clusters. PNA FISH strongly suggesting Staph Aureus. MSSA identified. Was on Nafcillin for 7-8 days. Had extensive discussion with the patient and multiple daughters regarding the current findings and potential outcomes. Patient is currently afebrile and feeling overall better. No new complaints at this time. Repeat cultures negative at 48 hours. Patient continues to improve. Nafcillin started on 01/22/2017. Patient doing well overall. Noted sudden rise in creatinine. Nafcillin was stopped currently on Rocephin (since 01/30/2017) to complete 14 day course (02/05- is last day of treatment). Creatinine still remains elevated with value at 2.0 today. Renal insufficiency. No other new issues with the patient. Overall, the patient is comfortable. No diarrhea in past 24 hours. Antibiotics completed now. Thank you for allowing me to participate in the care of the patient, we will follow with you.
--- NOTE | 2017-02-07 20:17 | PN ---
DATE: 02/07/2017 This 76-year-old female was examined at her bedside. She remains weak and deconditioned in the setting of a completed antibiotic course for Staph aureus sepsis that was complicated by right lower lung pneumonia, acute on chronic renal failure, and gastroenteritis. The patient had multiple electrolyte abnormalities including azotemia, hypokalemia, and hypomagnesemia that are now improving after the completion of IV antibiotic course for Staph sepsis, and despite the fact that stool for C. diff toxin was negative, she is being treated with oral Flagyl with improving consistency to her stools. On physical exam temperature is 98.1, respirations 18, pulse 68, and blood pressure 149/82, with a pulse ox of 97% on room air. HEAD: Normocephalic, atraumatic. EYES: No icterus. EARS: Clear. THROAT: Noninjected. NECK: Supple. HEART: S1, S2. LUNGS: Clear. ABDOMEN: Soft. EXTREMITIES: No edema. SKIN: Without rash. NEUROLOGICAL: Intact. PSYCHOLOGICAL: Alert. VASCULAR: Legs warm to touch. LABORATORIES: White count 5100, hemoglobin 8.8, hematocrit 25.9, platelets 275, 000. PT/INR is 2.60, previously 2.48. Sodium 141, K 3.9, chloride 105, bicarb 24, BUN 28, creatinine 2.0. Random blood sugar 136. Calcium 9.3, magnesium 1.7. Stool for occult blood negative x 2. Serum immunoelectrophoresis: No monoclonal proteins noted. IMPRESSION: A 76-year-old female status post Staph aureus sepsis, right lower lobe pneumonia, resolved; acute on chronic renal failure, gastroenteritis, hypokalemia, improving; hypomagnesemia, improved; chronic hypertension, chronic atrial fibrillation on oral Coumadin, vitamin D deficiency, antibiotic-induced gastroenteritis, stool C. diff toxin negative, insulin-dependent diabetes mellitus, chronic hypertension, hypothyroidism. PLAN: The patient will be treated with Synthroid 50 mcg p.o. daily, Norvasc 5 mg p.o. daily, mag oxide 400 mg p.o. daily, metoprolol tartrate 50 mg b.i.d., regular low dose insulin coverage a.c. meals and at bedtime, Flagyl 500 mg p.o. q. 8, vitamin D weekly. Coumadin has been lowered to 1 mg p.o. daily while checking a PT/INR in the a.m. Aldactone 25 mg p.o. b.i.d. The patient will have a basic metabolic panel, magnesium, and CBC levels in the a.m., as well as an INR. She continues to be treated supportively. She remains on aspiration precautions, fall precautions, skin precautions, is receiving physical therapy for reconditioning, and ultimate plan will be for discharge to home when medically stable. Approximately 50 minutes was spent in the care, coordination of care, review of care with this patient, her nurse, and co-consultants, Dr. Mora from Infectious disease, Dr. Mcdaniel from Hematology and Dr. Mckenna from GI. PROGNOSIS: Stable at present. Ladan Mcconnell MD cc: [phone] TT: 02/07/2017 20:17:14 Confirmation # [id number] Dictation # [id number] jn MTDD
[2017-02-08] MEDS: Levothyroxine 50 MCG TAB PO SCH (06:13)
[2017-02-08 06:40] LABS: HEMATOCRIT 27.9 % (36.0-48.0); MEAN CELL VOLUME 92.1 fL (80.0-105.0); MEAN CORPUSCULAR HGB CONC 34.8 g/dl (31.0-37.0); MEAN PLATELET VOLUME 9.7 fl (7.0-11.0); RED CELL DISTRIBUTION WIDTH 17.1 % (11.5-14.5); WHITE BLOOD COUNT 6.2 10^3/ul (4.5-11.0)
[2017-02-08] MEDS ORDERED: Pantoprazole 40 mg EC Tab PO STA (06:44)
--- NOTE | 2017-02-08 06:44 | CP.PCM.PN ---
Subjective - Date & Time of Evaluation Date of Evaluation: 02/08/17 Time of Evaluation: 06:44 - Subjective Subjective: Patient was seen at bedside for her complaint of upset stomach. States that she had nausea yesterday. No nausea now.No chest pain, no sob. States that this is because of all medications she is taking. Admitted to acute care after a syncopal episode. Gives history of HTN, atrial fibrillation, hypothyroidism,anxiety,DJD. Objective - Vital Signs/Intake and Output Vital Signs (last 24 hours): Temp Pulse Resp BP Pulse Ox 97.9 F 59 L 18 139/85 98 02/08/17 06:38 02/08/17 06:38 02/08/17 06:38 02/08/17 06:38 02/08/17 06:38 - Medications Medications: Current Medications Amlodipine Besylate (Norvasc) 5 mg PO DAILY [facility] Last Admin: 02/07/17 11:00 Dose: 5 mg Clonidine HCl (Catapres) 0.1 mg PO Q4H PRN; Protocol PRN Reason: hypertension Last Admin: 02/03/17 05:44 Dose: 0.1 mg Diphenoxylate HCl/Atropine (Lomotil 0.025-2.5 Mg Tablet) 1 tab PO QID PRN PRN Reason: diarrhea Last Admin: 02/06/17 11:20 Dose: 1 tab Ergocalciferol (Drisdol 50,000 Intl Units Cap) 1 cap PO Q7D AJ Last Admin: 02/01/17 15:29 Dose: 1 cap Guaifenesin/Dextromethorphan (Robitussin Dm) 5 ml PO Q6H PRN PRN Reason: Cough Last Admin: 02/05/17 21:23 Dose: 5 ml Insulin Human Regular (Humulin R Low) 0 units SC ACHS [facility] PRN Reason: Protocol Last Admin: 02/07/17 22:00 Dose: Not Given Levothyroxine Sodium (Synthroid) 50 mcg PO 0600 [facility] PRN Reason: Protocol Last Admin: 02/08/17 06:13 Dose: Not Given Lorazepam (Ativan) 0.5 mg PO Q6 PRN PRN Reason: Anxiety Last Admin: 02/07/17 22:38 Dose: 0.5 mg Magnesium Oxide (Mag-Ox) 400 mg PO DAILY [facility] Last Admin: 02/07/17 09:28 Dose: 400 mg Metoprolol Tartrate (Lopressor) 50 mg PO BRKDIN [facility] Last Admin: 02/07/17 17:43 Dose: 50 mg Metronidazole (Flagyl) 500 mg PO Q8 [facility] PRN Reason: Protocol Last Admin: 02/08/17 06:13 Dose: 500 mg Silver Sulfadiazine (Silvadene 1% 20 Gm) 1 ea TOP DAILY [facility] PRN Reason: Protocol Last Admin: 02/07/17 12:14 Dose: Not Given Spironolactone (Aldactone) 25 mg PO BID [facility] Last Admin: 02/07/17 17:41 Dose: 25 mg Warfarin Sodium (Coumadin) 1 mg PO 1800 [facility] Last Admin: 02/07/17 17:41 Dose: 1 mg - Labs Labs: 02/06/17 07:00 02/07/17 06:15 PT 28.1 Seconds (9.9-11.8) H 02/07/17 06:15 INR 2.60 (0.93-1.08) H 02/07/17 06:15 - Constitutional Appears: Well, No Acute Distress - Head Exam Head Exam: ATRAUMATIC, NORMAL INSPECTION, NORMOCEPHALIC - Eye Exam Eye Exam: Normal appearance - ENT Exam ENT Exam: Normal External Ear Exam - Neck Exam Neck Exam: Normal Inspection - Respiratory Exam Respiratory Exam: NORMAL BREATHING PATTERN - Cardiovascular Exam Cardiovascular Exam: absent: JVD - GI/Abdominal Exam GI & Abdominal Exam: absent: Distended - Rectal Exam Rectal Exam: Deferred - Extremities Exam Extremities Exam: Normal Inspection - Back Exam Back Exam: vertebral tenderness - Neurological Exam Neurological Exam: Alert, Oriented x3 - Psychiatric Exam Psychiatric exam: Normal Affect, Normal Mood - Skin Skin Exam: Normal Color Assessment and Plan - Assessment and Plan (Free Text) Assessment: A/P:Dyspepsia. Hypertension. Atrial fibrillation. Protonix 40 mg PO now.
[2017-02-08 06:49] LABS: INR 2.69 (0.93-1.08)
[2017-02-08] MEDS: Insulin Reg-LOW-Coverage SC SCH ×4 (07:33→22:05)
[2017-02-08 07:35] LABS: CALCIUM 9.2 mg/dL (8.4-10.5); MAGNESIUM 1.8 mg/dL (1.7-2.2); POTASSIUM 3.5 mmol/L (3.6-5.0)
[2017-02-08] MEDS ORDERED: Potassium Chloride 20 mEq ER Tab PO ONE (10:37)
[2017-02-08] MEDS: Magnesium Oxide 400 mg Tab UD PO SCH (10:57)
[2017-02-08] MEDS: Silver Sulfadiazine 1% Cream (20 gm) TOP SCH (10:58)
--- NOTE | 2017-02-08 12:35 | PN ---
DATE: 02/08/2017 This 76-year-old female was examined at her bedside. Her case was reviewed in detail with her nurse. The patient reports that she did have 1 episode of diarrhea yesterday, and is feeling much better. On physical exam, temperature is 97.9, respirations 18, pulse 67, and blood pressure 139/85, with a pulse ox of 98% on room air. HEAD: Normocephalic, atraumatic. EYES: No icterus. EARS: Clear. THROAT: Noninjected. NECK: Supple. HEART: Irregular S1, S2. LUNGS: Clear. ABDOMEN: Soft. EXTREMITIES: No edema. SKIN: Without rash. NEUROLOGIC: Intact. PSYCHOLOGICAL: Alert. VASCULAR: Legs warm to touch. White count 6200, hemoglobin 9.7, hematocrit 27.9, platelets 301,000. PT/INR is 2.69. Sodium 140, K 3.5, chloride 103, bicarb 25, BUN 33, creatinine 2.0. Random blood sugar is 120. Magnesium level is 1.8. Stool for occult blood negative x 2. Serum Immunoelectrophoresis: No monoclonal proteins. IMPRESSION: A 76-year-old female status post Staphylococcus aureus sepsis, who has successfully completed her antibiotic course under the direction of Dr. George Mora, with comorbidities of resolved right lower lung pneumonia, acute on chronic renal failure stable, antibiotic-induced diarrhea, stool C. diff toxin negative x 2 which lead to hypokalemia, hypomagnesemia, with chronic atrial fibrillation, now with a therapeutic PT/INR level on low-dose oral Coumadin, also with chronic hypertension, vitamin D deficiency, type 2 diabetes mellitus, and hypothyroidism. PLAN AT PRESENT: To continue her levothyroxine 50 mcg p.o. daily. She continues on Norvasc 5 mg p.o. daily, magnesium oxide 400 mg p.o. daily, metoprolol tartrate 50 mg b.i.d. She will be given 1 dose of potassium chloride 20 mEq p.o. x 1 dose. She is trained on the use of regular low dose insulin coverage a.c. meals and at bedtime. She will complete a 10-day course of Flagyl 500 mg p.o. q. 8. hours. Coumadin has been dose reduced to 1 mg p.o. daily to maintain INR less than 3, and she is receiving Aldactone 25 mg p.o. b.i.d. She is scheduled for basic metabolic panel, magnesium level, CBC, and INR in the a.m. She continues on physical therapy for reconditioning and gait training. She continues on a heart-healthy diet, aspiration and fall precautions, and the ultimate plan will be for discharge to home when medically stable for close outpatient monitoring of her multiple medical comorbidities. All of this has been discussed in detail with the patient, her nurse, co- consultants, and family, and approximately fifty minutes was spent in the care, coordination of care, review of care, and direction of care of this patient today. Ladan Mcconnell MD cc: [phone] TT: 02/08/2017 12:34:36 Confirmation # [id number] Dictation # [id number] jn MTDD
[2017-02-08] MEDS: Ergocalciferol 50,000 Intl Units Cap PO SCH (13:19)
--- NOTE | 2017-02-08 16:16 | CP.PCM.PN ---
Subjective - Date & Time of Evaluation Date of Evaluation: 02/08/17 Time of Evaluation: 15:45 - Subjective Subjective: Infectious Disease Follow Up: February 08, 2017 76 yo female with initial presentation with a syncopal episode. She did fall and hit the back of her right arm and ribcage. The patient presented to the ER with dehydration and hypokalemia. The patient developed fevers up to 102.3 F three days ago. Hernandez cultures taken. No leukocytosis. The patient has been in the hospital for four days so far. No episodes of nausea and vomiting. Supportive care. Blood cultures showing gram positive cocci. FISH testing strongly suggesting Staph Aureus infection. MSSA seen in official culture results. The patient has been Afebrile for the past few days. The patient has mild SOB and general weakness. Improving. PT/INR was elevated but now normalized. Patient that she feels better every day. Noted creatinine remains elevated (still at 2.0 today). Patient essentially making no complaints. On the whole, clinically better. Antibiotics completed at this time. Repeat blood cultures negative at 48+ hours. The patient with one diarrhea episodes in the past 24 hours. Off antibiotics. Objective - Vital Signs/Intake and Output Vital Signs (last 24 hours): Temp Pulse Resp BP Pulse Ox 97.5 F L 67 18 155/84 H 95 02/08/17 10:00 02/08/17 10:57 02/08/17 10:00 02/08/17 10:57 02/08/17 10:00 - Medications Medications: Current Medications Amlodipine Besylate (Norvasc) 5 mg PO DAILY [facility] Last Admin: 02/08/17 10:57 Dose: 5 mg Clonidine HCl (Catapres) 0.1 mg PO Q4H PRN; Protocol PRN Reason: hypertension Last Admin: 02/03/17 05:44 Dose: 0.1 mg Diphenoxylate HCl/Atropine (Lomotil 0.025-2.5 Mg Tablet) 1 tab PO QID PRN PRN Reason: diarrhea Last Admin: 02/06/17 11:20 Dose: 1 tab Ergocalciferol (Drisdol 50,000 Intl Units Cap) 1 cap PO Q7D [facility] Last Admin: 02/08/17 13:19 Dose: 1 cap Insulin Human Regular (Humulin R Low) 0 units SC ACHS [facility] PRN Reason: Protocol Last Admin: 02/08/17 11:15 Dose: Not Given Levothyroxine Sodium (Synthroid) 50 mcg PO 0600 [facility] PRN Reason: Protocol Last Admin: 02/08/17 06:13 Dose: Not Given Lorazepam (Ativan) 0.5 mg PO Q6 PRN PRN Reason: Anxiety Last Admin: 02/07/17 22:38 Dose: 0.5 mg Metoprolol Tartrate (Lopressor) 50 mg PO BRKDIN [facility] Last Admin: 02/08/17 08:35 Dose: 50 mg Metronidazole (Flagyl) 500 mg PO Q8 [facility] PRN Reason: Protocol Last Admin: 02/08/17 13:18 Dose: 500 mg Silver Sulfadiazine (Silvadene 1% 20 Gm) 1 ea TOP DAILY [facility] PRN Reason: Protocol Last Admin: 02/08/17 10:58 Dose: 1 applic Spironolactone (Aldactone) 25 mg PO BID [facility] Last Admin: 02/08/17 10:56 Dose: 25 mg Warfarin Sodium (Coumadin) 1 mg PO 1800 [facility] Last Admin: 02/07/17 17:41 Dose: 1 mg - Labs Labs: 02/08/17 06:20 02/08/17 06:20 PT 29.0 Seconds (9.9-11.8) H 02/08/17 06:20 INR 2.69 (0.93-1.08) H 02/08/17 06:20 - Constitutional Appears: Non-toxic, No Acute Distress - Head Exam Head Exam: ATRAUMATIC, NORMOCEPHALIC - Eye Exam Eye Exam: EOMI, PERRL Pupil Exam: NORMAL ACCOMODATION, PERRL - ENT Exam ENT Exam: Mucous Membranes Moist, Normal External Ear Exam, TM's Normal Bilaterally - Neck Exam Neck Exam: Full ROM, Normal Inspection - Respiratory Exam Respiratory Exam: Clear to Ausculation Bilateral, NORMAL BREATHING PATTERN. absent: Rales, Rhonchi, Wheezes - Cardiovascular Exam Cardiovascular Exam: REGULAR RHYTHM, RRR, +S1, +S2 - GI/Abdominal Exam GI & Abdominal Exam: Soft, Normal Bowel Sounds. absent: Distended, Tenderness - Extremities Exam Extremities Exam: Full ROM, Normal Inspection - Neurological Exam Neurological Exam: Alert, Awake, CN II-XII Intact, Oriented x3 - Psychiatric Exam Psychiatric exam: Normal Affect, Normal Mood - Skin Skin Exam: Intact, Normal Color Assessment and Plan - Assessment and Plan (Free Text) Assessment: 76 yo female with sudden fevers up to 102 F when admitted to hospital. Hernandez cultures taken. Obtain ESR, CRP, and Procalcitonin values. Initially on cefepime at 1 gm IV daily given the renal insufficiency of the patient. Patient had abdominal pain as well. Patient states that she feels better today. Consider abdominal X-ray and even Abdominal CT scan - both studies did not show any significant abnormalities. Supportive care. Blood cultures showing gram positive cocci in clusters. PNA FISH strongly suggesting Staph Aureus. MSSA identified. Was on Nafcillin for 7-8 days. Had extensive discussion with the patient and multiple daughters regarding the current findings and potential outcomes. Patient is currently afebrile and feeling overall better. No new complaints at this time. Repeat cultures negative at 48 hours. Patient continues to improve. Nafcillin started on 01/22/2017. Patient doing well overall. Noted sudden rise in creatinine. Nafcillin was stopped currently on Rocephin (since 01/30/2017) to complete 14 day course (02/05- is last day of treatment). Creatinine still remains elevated with value at 2.0 today. Renal insufficiency. No other new issues with the patient. Overall, the patient is comfortable. No diarrhea in past 24 hours. Antibiotics completed now. Thank you for allowing me to participate in the care of the patient, we will follow with you.
[2017-02-09] MEDS: Levothyroxine 50 MCG TAB PO SCH (06:16)
[2017-02-09] MEDS: Insulin Reg-LOW-Coverage SC SCH ×4 (07:29→22:43)
[2017-02-09 07:40] LABS: HEMATOCRIT 27.7 % (36.0-48.0); MEAN CELL VOLUME 92.3 fL (80.0-105.0); MEAN CORPUSCULAR HEMOGLOBIN 31.7 pg (25.0-35.0); MEAN CORPUSCULAR HGB CONC 34.3 g/dl (31.0-37.0); RED CELL DISTRIBUTION WIDTH 17.6 % (11.5-14.5); WHITE BLOOD COUNT 6.4 10^3/ul (4.5-11.0)
[2017-02-09 07:51] LABS: INR 2.86 (0.93-1.08)
[2017-02-09 08:17] LABS: CALCIUM 8.9 mg/dL (8.4-10.5); MAGNESIUM 1.8 mg/dL (1.7-2.2); POTASSIUM 3.5 mmol/L (3.6-5.0)
[2017-02-09] MEDS: Silver Sulfadiazine 1% Cream (20 gm) TOP SCH (09:35)
[2017-02-09] MEDS ORDERED: Potassium Chloride 20 mEq ER Tab PO ONE (10:17)
--- NOTE | 2017-02-09 12:18 | PN ---
DATE: 02/09/2017 This 76-year-old female was examined at her bedside. Her case was reviewed in detail with her nurse. The patient is refusing to take hospital Synthroid, to which she states she had a reaction, which caused a pruritus in her past. I have instructed the patient repeatedly to have the patient's family bring in her levothyroxine from home, which has not been accomplished to date. The patient is having better formed bowel movements at present on oral Flagyl in the setting of antibiotic associated diarrhea, which was stool C. diff toxin negative x 2. She has completed her IV antibiotic course for her Staph aureus and this was also complicated by right lower lobe pneumonia, now resolved gastroenteritis, hypokalemia and hypomagnesemia, which are slowly improving. PHYSICAL EXAMINATION: VITAL SIGNS: Her temperature is 98, respirations 18, pulse 72 and blood pressure 154/79 with a pulse ox of 98% on room air. HEAD: Normocephalic, atraumatic. EYES: No icterus. EARS: Clear. THROAT: Noninjected. NECK: Supple. HEART: S1, S2 irregular. LUNGS: Clear. ABDOMEN: Soft. EXTREMITIES: No edema. SKIN: Without rash. NEUROLOGICAL: Intact. PSYCHOLOGICAL: Alert. VASCULAR: Legs warm to touch. White count 6400, hemoglobin 9.5, hematocrit 27.7, platelets 317,000. PT/INR 2.86. Sodium 138, K 3.5, chloride 102, bicarb 24, BUN 38, creatinine 2.0, random blood sugar was 95, magnesium level 1.8. Stool for occult bloods were negative x 2. Serum immunoelectrophoresis showed no monoclonal proteins. IMPRESSION: A 76-year-old female, status post Staphylococcus aureus sepsis, also status post right lower lobe pneumonia, status post gastroenteritis with complications of hypokalemia and hypomagnesemia, now improving with acute on chronic renal failure, anemia of chronic disease, chronic anxiety neurosis, vitamin D deficiency, antibiotic induced diarrhea, stool Clostridium difficile toxin negative x 2, type 2 diabetes mellitus, chronic hypertension, peptic ulcer disease with gastroesophageal reflux disease, chronic hypothyroidism. PLAN: To have the patient's family bring her levothyroxine from home and for patient to begin to take this. Also, she continues on Norvasc 10 mg p.o. daily , metoprolol tartrate 50 mg b.i.d. She will get 1 dose of potassium chloride 40 mEq p.o. today and insulin coverage before meals and at bedtime and she has been instructed on the use of insulin coverage by the diabetic nurse educator, Maria Teresa Reese. She will need a 10-day course of Flagyl 500 mg p.o. q. 8, which will continue through 02/13. She also continues on vitamin D 50,000 units once weekly and spironolactone 25 mg p.o. b.i.d. She will have repeat basic metabolic panel and INR in the a.m. Once her electrolytes have stabilized, she will be ready for discharge to home with the need for outpatient monitoring closely regarding all of these issues as an outpatient and she has been advised by Dr. Mckenna from GI to schedule an endoscopy, colonoscopy with him after discharge. This has been recommended to the patient enumerable times prior to this admission as well and she has been reluctant to do it to date.The patient requires daily labs and adjustments in meds for electrolyte balance and management of INR which is affected by oral Flagyl. Greater than fifty minutes was spent in the care, discussion of care and coordination of this patient's care with the patient, her nurse and coconsultants today. Ladan Mcconnell MD cc: [phone] TT: 02/09/2017 12:17:59 Confirmation # [id number] Dictation # [id number] MTDD
--- NOTE | 2017-02-09 14:56 | CP.PCM.PN ---
Subjective - Date & Time of Evaluation Date of Evaluation: 02/09/17 Time of Evaluation: 14:54 - Subjective Subjective: Infectious Disease Follow Up: February 09, 2017 76 yo female with initial presentation with a syncopal episode. She did fall and hit the back of her right arm and ribcage. The patient presented to the ER with dehydration and hypokalemia. The patient developed fevers up to 102.3 F three days ago. Hernandez cultures taken. No leukocytosis. The patient has been in the hospital for four days so far. No episodes of nausea and vomiting. Supportive care. Blood cultures showing gram positive cocci. FISH testing strongly suggesting Staph Aureus infection. MSSA seen in official culture results. The patient has been Afebrile for the past few days. The patient has mild SOB and general weakness. Improving. PT/INR was elevated but now normalized. Patient that she feels better every day. Noted creatinine remains elevated (still at 2.0 today). Patient essentially making no complaints. On the whole, clinically better. Antibiotics completed at this time. Repeat blood cultures negative at 48+ hours. The patient with one diarrhea episodes in the past 24 hours. Off antibiotics. Objective - Vital Signs/Intake and Output Vital Signs (last 24 hours): Temp Pulse Resp BP Pulse Ox 97.8 F 56 L 18 153/81 H 96 02/09/17 10:00 02/09/17 10:00 02/09/17 10:00 02/09/17 10:00 02/09/17 10:00 - Medications Medications: Current Medications Amlodipine Besylate (Norvasc) 10 mg PO DAILY [facility] Clonidine HCl (Catapres) 0.1 mg PO Q4H PRN; Protocol PRN Reason: hypertension Last Admin: 02/03/17 05:44 Dose: 0.1 mg Diphenoxylate HCl/Atropine (Lomotil 0.025-2.5 Mg Tablet) 1 tab PO QID PRN PRN Reason: diarrhea Last Admin: 02/06/17 11:20 Dose: 1 tab Ergocalciferol (Drisdol 50,000 Intl Units Cap) 1 cap PO Q7D AJ Last Admin: 02/08/17 13:19 Dose: 1 cap Insulin Human Regular (Humulin R Low) 0 units SC ACHS AJ PRN Reason: Protocol Last Admin: 02/09/17 11:34 Dose: Not Given Levothyroxine Sodium (Synthroid) 50 mcg PO 0600 AJ PRN Reason: Protocol Last Admin: 02/09/17 06:16 Dose: Not Given Lorazepam (Ativan) 0.5 mg PO Q6 PRN PRN Reason: Anxiety Last Admin: 02/07/17 22:38 Dose: 0.5 mg Metoprolol Tartrate (Lopressor) 50 mg PO BRKDIN [facility] Last Admin: 02/09/17 08:24 Dose: 50 mg Metronidazole (Flagyl) 500 mg PO Q8 AJ PRN Reason: Protocol Last Admin: 02/09/17 14:46 Dose: 500 mg Silver Sulfadiazine (Silvadene 1% 20 Gm) 1 ea TOP DAILY AJ PRN Reason: Protocol Last Admin: 02/09/17 09:35 Dose: 1 applic Spironolactone (Aldactone) 25 mg PO BID [facility] Last Admin: 02/09/17 09:35 Dose: 25 mg - Labs Labs: 02/09/17 07:30 02/09/17 07:30 PT 30.9 Seconds (9.9-11.8) H* 02/09/17 07:30 INR 2.86 (0.93-1.08) H 02/09/17 07:30 - Constitutional Appears: Non-toxic, No Acute Distress - Head Exam Head Exam: ATRAUMATIC, NORMOCEPHALIC - Eye Exam Eye Exam: EOMI, PERRL Pupil Exam: NORMAL ACCOMODATION, PERRL - ENT Exam ENT Exam: Mucous Membranes Moist, Normal External Ear Exam, TM's Normal Bilaterally - Neck Exam Neck Exam: Full ROM, Normal Inspection - Respiratory Exam Respiratory Exam: Clear to Ausculation Bilateral, NORMAL BREATHING PATTERN. absent: Rales, Rhonchi, Wheezes - Cardiovascular Exam Cardiovascular Exam: REGULAR RHYTHM, RRR, +S1, +S2 - GI/Abdominal Exam GI & Abdominal Exam: Soft, Normal Bowel Sounds. absent: Distended, Tenderness - Extremities Exam Extremities Exam: Full ROM, Normal Inspection - Neurological Exam Neurological Exam: Alert, Awake, CN II-XII Intact, Oriented x3 - Psychiatric Exam Psychiatric exam: Normal Affect, Normal Mood - Skin Skin Exam: Intact, Normal Color Assessment and Plan - Assessment and Plan (Free Text) Assessment: 76 yo female with sudden fevers up to 102 F when admitted to hospital. Hernandez cultures taken. Obtain ESR, CRP, and Procalcitonin values. Initially on cefepime at 1 gm IV daily given the renal insufficiency of the patient. Patient had abdominal pain as well. Patient states that she feels better today. Consider abdominal X-ray and even Abdominal CT scan - both studies did not show any significant abnormalities. Supportive care. Blood cultures showing gram positive cocci in clusters. PNA FISH strongly suggesting Staph Aureus. MSSA identified. Was on Nafcillin for 7-8 days. Had extensive discussion with the patient and multiple daughters regarding the current findings and potential outcomes. Patient is currently afebrile and feeling overall better. No new complaints at this time. Repeat cultures negative at 48 hours. Patient continues to improve. Nafcillin started on 01/22/2017. Patient doing well overall. Noted sudden rise in creatinine. Nafcillin was stopped currently on Rocephin (since 01/30/2017) to complete 14 day course (02/05- is last day of treatment). Creatinine still remains elevated with value at 2.0 today. Renal insufficiency. No other new issues with the patient. Overall, the patient is comfortable. No diarrhea in past 24 hours. Antibiotics completed now. She is off all antibiotics at this time. Thank you for allowing me to participate in the care of the patient, we will follow with you.
--- NOTE | 2017-02-09 20:42 | PN ---
DATE: 02/09/2017 SUBJECTIVE: This patient was seen and evaluated earlier. No episodes of bleeding. No abdominal celso n. PHYSICAL EXAMINATION: VITAL SIGNS: The patient is afebrile, pulse 56, blood pressure is 153/81. HEENT: Atraumatic, anicteric. NECK: Supple. HEART: S1, S2 heard. LUNGS: Bilateral air entry present. ABDOMEN: Soft. There is no mass palpable. No tenderness. EXTREMITIES: No edema. No cyanosis. LABORATORY DATA: Hemoglobin 9.5, hematocrit 27.7, WBC 6.4, platelets 317. Chemistry: BUN 38, creat inine 2.0. IMPRESSION: This is a 76-year-old patient with chronic kidney disease, admitted with Staphylococcus aureus sepsis. The patient did have episodes of diarrhea, which improved. The patient was also foun d to be anemic, multifactorial etiology. Hemoglobin dropped from 10.4 to 8.8; now it is stable at 9. 5. The patient has been on IV antibiotics. PLAN: Discussed with the patient at length. The patient would need an endoscopic evaluation and the patient never had an EGD and colonoscopy; the patient is reluctant about it at the present time. Si nce the hemoglobin is stable, will continue to closely follow up and workup can be considered a s an outpatient if the patient is agreeable. Will continue to closely follow up her care and suggest further recommendation based on the clinical course. Curtis Mckenna MD cc: [id number] TT: 02/09/2017 20:41:46 Confirmation # [id number] Dictation # [id number] juanita
[2017-02-10] MEDS: Levothyroxine 50 MCG TAB PO SCH (05:59)
[2017-02-10] MEDS ORDERED: Home Med 1 UNIT PO SCH (06:00)
[2017-02-10] MEDS: Insulin Reg-LOW-Coverage SC SCH ×4 (06:46→22:15)
[2017-02-10 07:36] LABS: INR 2.82 (0.93-1.08)
[2017-02-10 08:34] LABS: POTASSIUM 4.2 mmol/L (3.6-5.0)
[2017-02-10] MEDS: Silver Sulfadiazine 1% Cream (20 gm) TOP SCH (09:31)
[2017-02-10] MEDS: Atropine-Diphenoxylate 0.025-2.5 mg Tab PO PRN (09:34)
--- NOTE | 2017-02-10 12:32 | PN ---
DATE: 02/10/2017 SUBJECTIVE: This 76-year-old female was examined at her bedside. She mentioned that she did have an episode of diarrhea yesterday. Her case has been challenging because of multiple comorbidities including recently completed treatment for Staph aureus sepsis which was complicated by right lower lobe pneumonia, now resolved and gastroenteritis in the setting of stool C. diff toxin negative cultures, which have prompted us to treat her with Flagyl nonetheless to help ameliorate her diarrhea, which has led to imbalances of hypokalemia and hypomagnesemia and made managing her INR on Coumadin for her chronic atrial fibrillation challenging. Of note, her Coumadin is currently on hold because of persistent therapeutic levels off all Coumadin and the patient denies any hematemesis, melena, or hematuria. PHYSICAL EXAMINATION: VITAL SIGNS: Temperature is 98.2, respirations 18, pulse 67, blood pressure 142 /65 with a pulse ox of 96% on room air. HEAD: Normocephalic, atraumatic. EYES: No icterus. EARS: Clear. THROAT: Noninjected. NECK: Supple. HEART: Irregular S1, S2. LUNGS: Clear. ABDOMEN: Soft. EXTREMITIES: No edema. SKIN: Without rash. NEUROLOGIC: Intact. PSYCHOLOGICAL: Alert. VASCULAR: Feet warm to touch. LABORATORY DATA: White count 6400, hemoglobin 9.5, hematocrit 27.7, platelets 317,000. PT/INR 2.82. Sodium 141, K 4.2, chloride 105, bicarb 24, BUN 38, creatinine 1.8, random blood sugar 114. Stool for occult blood negative x 2. Serum immunoelectrophoresis, no monoclonal proteins seen. Urine culture no growth. Most recent stool C. diff toxin negative antigen, negative toxin. IMPRESSION: A 76-year-old female who has completed a full course of intravenous antibiotic therapy for Staph aureus, now resolved with comorbidities of right lower lung pneumonia, resolved; gastroenteritis, probable antibiotic-induced diarrhea despite Clostridium difficile toxin negative studies, which have led to hypokalemia, hypomagnesemia and the need for oral Flagyl treatment for a 10-day course as per gastroenterology with comorbidities of type 2 diabetes mellitus, chronic anxiety neurosis, chronic hypertension, vitamin D deficiency and chronic hypothyroidism. PLAN: The plan at present is to continue soft bland diet, diabetic restriction ; levothyroxine 50 mcg p.o. daily, Norvasc 10 mg p.o. daily, metoprolol tartrate 50 mg p.o. b.i.d., insulin coverage before meals and at bedtime, low dose; Flagyl 500 mg p.o. q.8 hours for a 10-day course to be completed by 02/13, vitamin D 50,000 international units weekly and Aldactone 25 mg p.o. b.i.d. The patient is scheduled for a potassium and INR level in the a.m. Coumadin remains on hold while monitoring her INR response, aiming for a level between 2 and 3. She remains on aspiration precautions, fall precautions, and is receiving physical therapy for reconditioning and gait training and ultimate plan will be for discharge to home when medically stable. The patient has been seen by gastroenterology who has recommended that she follow up in their office for an endoscopy, colonoscopy upon discharge and by Dr. Mcdaniel from hematology, who was recommended that the patient follow up with him as well regarding her anemia issues which he will monitor in his office upon discharge. Ladan Mcconnell MD cc: [phone] TT: 02/10/2017 12:31:49 Confirmation # [id number] Dictation # [id number] sn MTDD
--- NOTE | 2017-02-10 18:17 | CP.PCM.PN ---
Subjective - Date & Time of Evaluation Date of Evaluation: 02/10/17 Time of Evaluation: 17:00 - Subjective Subjective: Infectious Disease Follow Up: February 10, 2017 76 yo female with initial presentation with a syncopal episode. She did fall and hit the back of her right arm and ribcage. The patient presented to the ER with dehydration and hypokalemia. The patient developed fevers up to 102.3 F three days ago. Hernandez cultures taken. No leukocytosis. The patient has been in the hospital for four days so far. No episodes of nausea and vomiting. Supportive care. Blood cultures showing gram positive cocci. FISH testing strongly suggesting Staph Aureus infection. MSSA seen in official culture results. The patient has been Afebrile for the past few days. The patient has mild SOB and general weakness. Improving. PT/INR was elevated but now normalized. Patient that she feels better every day. Noted creatinine remains elevated (still at 2.0 today). Patient essentially making no complaints. On the whole, clinically better. Antibiotics completed at this time. Repeat blood cultures negative at 48+ hours. The patient with one diarrhea episodes in the past 24 hours. Off antibiotics. No new issues from ID standpoint. Objective - Vital Signs/Intake and Output Vital Signs (last 24 hours): Temp Pulse Resp BP Pulse Ox 98.2 F 67 18 142/65 96 02/10/17 10:00 02/10/17 10:00 02/10/17 10:00 02/10/17 10:00 02/10/17 10:00 - Medications Medications: Current Medications Amlodipine Besylate (Norvasc) 10 mg PO DAILY [facility] Last Admin: 02/10/17 09:30 Dose: 10 mg Clonidine HCl (Catapres) 0.1 mg PO Q4H PRN; Protocol PRN Reason: hypertension Last Admin: 02/03/17 05:44 Dose: 0.1 mg Diphenoxylate HCl/Atropine (Lomotil 0.025-2.5 Mg Tablet) 1 tab PO QID PRN PRN Reason: diarrhea Last Admin: 02/10/17 09:34 Dose: 1 tab Ergocalciferol (Drisdol 50,000 Intl Units Cap) 1 cap PO Q7D [facility] Last Admin: 02/08/17 13:19 Dose: 1 cap Insulin Human Regular (Humulin R Low) 0 units SC ACHS [facility] PRN Reason: Protocol Last Admin: 02/10/17 16:24 Dose: Not Given Levothyroxine Sodium (Synthroid) 50 mcg PO 0600 AJ PRN Reason: Protocol Last Admin: 02/10/17 05:59 Dose: 50 mcg Lorazepam (Ativan) 0.5 mg PO Q6 PRN PRN Reason: Anxiety Last Admin: 02/07/17 22:38 Dose: 0.5 mg Metoprolol Tartrate (Lopressor) 50 mg PO BRKDIN [facility] Last Admin: 02/10/17 15:59 Dose: 50 mg Metronidazole (Flagyl) 500 mg PO Q8 AJ PRN Reason: Protocol Last Admin: 02/10/17 13:07 Dose: 500 mg Silver Sulfadiazine (Silvadene 1% 20 Gm) 1 ea TOP DAILY [facility] PRN Reason: Protocol Last Admin: 02/10/17 09:31 Dose: 1 applic Spironolactone (Aldactone) 25 mg PO BID [facility] Last Admin: 02/10/17 17:19 Dose: 25 mg - Labs Labs: 02/09/17 07:30 02/10/17 07:15 PT 30.5 Seconds (9.9-11.8) H* 02/10/17 07:15 INR 2.82 (0.93-1.08) H 02/10/17 07:15 - Constitutional Appears: Non-toxic, No Acute Distress, Chronically Ill - Head Exam Head Exam: ATRAUMATIC, NORMOCEPHALIC - Eye Exam Eye Exam: EOMI, PERRL Pupil Exam: NORMAL ACCOMODATION, PERRL - ENT Exam ENT Exam: Mucous Membranes Moist, Normal External Ear Exam, TM's Normal Bilaterally - Neck Exam Neck Exam: Full ROM, Normal Inspection - Respiratory Exam Respiratory Exam: Clear to Ausculation Bilateral, NORMAL BREATHING PATTERN. absent: Rales, Rhonchi, Wheezes - Cardiovascular Exam Cardiovascular Exam: REGULAR RHYTHM, RRR, +S1, +S2 - GI/Abdominal Exam GI & Abdominal Exam: Soft, Normal Bowel Sounds. absent: Distended, Tenderness - Extremities Exam Extremities Exam: Full ROM, Normal Inspection - Neurological Exam Neurological Exam: Alert, Awake, CN II-XII Intact, Oriented x3 - Psychiatric Exam Psychiatric exam: Normal Affect, Normal Mood - Skin Skin Exam: Intact, Normal Color Assessment and Plan - Assessment and Plan (Free Text) Assessment: 76 yo female with sudden fevers up to 102 F when admitted to hospital. Hernandez cultures taken. Obtain ESR, CRP, and Procalcitonin values. Initially on cefepime at 1 gm IV daily given the renal insufficiency of the patient. Patient had abdominal pain as well. Patient states that she feels better today. Consider abdominal X-ray and even Abdominal CT scan - both studies did not show any significant abnormalities. Supportive care. Blood cultures showing gram positive cocci in clusters. PNA FISH strongly suggesting Staph Aureus. MSSA identified. Was on Nafcillin for 7-8 days. Had extensive discussion with the patient and multiple daughters regarding the current findings and potential outcomes. Patient is currently afebrile and feeling overall better. No new complaints at this time. Repeat cultures negative at 48 hours. Patient continues to improve. Nafcillin started on 01/22/2017. Patient doing well overall. Noted sudden rise in creatinine. Nafcillin was stopped currently on Rocephin (since 01/30/2017) to complete 14 day course (02/05- is last day of treatment). Creatinine still remains elevated with value at 1.8 today. Renal insufficiency. No other new issues with the patient. Overall, the patient is comfortable. No diarrhea in past 24 hours. Antibiotics completed now. She is off all antibiotics at this time. No new ID issues at this time. Thank you for allowing me to participate in the care of the patient, we will follow with you.
[2017-02-11] MEDS: Levothyroxine 50 MCG TAB PO SCH (05:49)
[2017-02-11 06:23] VITALS: RESP 20; TEMP 98; O2SAT 99
[2017-02-11 07:20] LABS: INR 2.49 (0.93-1.08)
[2017-02-11] MEDS: Insulin Reg-LOW-Coverage SC SCH ×3 (10:02→17:37)
[2017-02-11] MEDS: Silver Sulfadiazine 1% Cream (20 gm) TOP SCH (10:12)
--- NOTE | 2017-02-11 12:25 | CP.PCM.PN ---
Subjective - Date & Time of Evaluation Date of Evaluation: 02/11/17 Time of Evaluation: 12:24 - Subjective Subjective: picc line removed fro rt upper extremity. Objective - Vital Signs/Intake and Output Vital Signs (last 24 hours): Temp Pulse Resp BP Pulse Ox 98 F 62 20 151/74 H 99 02/11/17 06:00 02/11/17 06:00 02/11/17 06:00 02/11/17 06:00 02/11/17 06:00 - Medications Medications: Current Medications Amlodipine Besylate (Norvasc) 10 mg PO DAILY [facility] Last Admin: 02/11/17 10:07 Dose: 10 mg Clonidine HCl (Catapres) 0.1 mg PO Q4H PRN; Protocol PRN Reason: hypertension Last Admin: 02/03/17 05:44 Dose: 0.1 mg Diphenoxylate HCl/Atropine (Lomotil 0.025-2.5 Mg Tablet) 1 tab PO QID PRN PRN Reason: diarrhea Last Admin: 02/10/17 09:34 Dose: 1 tab Ergocalciferol (Drisdol 50,000 Intl Units Cap) 1 cap PO Q7D AJ Last Admin: 02/08/17 13:19 Dose: 1 cap Insulin Human Regular (Humulin R Low) 0 units SC ACHS AJ PRN Reason: Protocol Last Admin: 02/11/17 10:02 Dose: Not Given Levothyroxine Sodium (Synthroid) 50 mcg PO 0600 AJ PRN Reason: Protocol Last Admin: 02/11/17 05:49 Dose: 50 mcg Lorazepam (Ativan) 0.5 mg PO Q6 PRN PRN Reason: Anxiety Last Admin: 02/07/17 22:38 Dose: 0.5 mg Metoprolol Tartrate (Lopressor) 50 mg PO BRKDIN [facility] Last Admin: 02/11/17 10:05 Dose: 50 mg Metronidazole (Flagyl) 500 mg PO Q8 AJ PRN Reason: Protocol Last Admin: 02/11/17 05:44 Dose: 500 mg Silver Sulfadiazine (Silvadene 1% 20 Gm) 1 ea TOP DAILY AJ PRN Reason: Protocol Last Admin: 02/11/17 10:12 Dose: 1 applic Spironolactone (Aldactone) 25 mg PO BID [facility] Last Admin: 03/28/17 10:06 Dose: 25 mg - Labs Labs: 02/09/17 07:30 02/11/17 07:00 PT 26.9 Seconds (9.9-11.8) H 02/11/17 07:00 INR 2.49 (0.93-1.08) H 02/11/17 07:00
--- NOTE | 2017-02-11 15:44 | PN ---
DATE: 02/11/2017 Seen and examined at the bedside this afternoon in TCU. The patient denies any nausea, vomiting, or abdominal pain. Her bowel movement is soft, not much diarrhea. She takes the Lomotil p.r.n. She di d have stool for C. diff done, that was negative. She is feeling better and tolerating oral intake. VITAL SIGNS: Temperature is 98, blood pressure 151/74, pulse is 62, respirations 20, 99 on room air. LABORATORY DATA: Labs noted today are PT is 26.9, INR is 2.49. Her potassium was done today at 3.8. PHYSICAL EXAMINATION: HEENT: Sclera is anicteric. NECK: Supple. CARDIAC: S1, S2. LUNGS: With decreased breath sounds, with good air entry, no rales or wheeze. ABDOMEN: With bowel sounds, soft. It is not distended. No rebound or guarding. ASSESSMENT: This is a 76-year-old female with history of chronic kidney disease, came in with sepsis , positive Staphylococcus aureus. Had complaints of episodes of diarrhea, which is now improved. Sh e also found to be anemic, but now stable. No reports of overt gastrointestinal bleed. PLAN: She is going to be discharged home today. We did discuss on previous occasions regarding GI w orkup as patient has never had EGD or colon. The patient is reluctant. Can continue to monitor H an d H closely. Her hemoglobin has been stable and no overt GI bleed. The patient was seen and case discussed with Dr. Mckenna. Meagan Diaes YOMAIRA cc: [id number] TT: 02/11/2017 15:44:22 Confirmation # [id number] Dictation # [id number] sn
[2017-02-11 17:41] VITALS: BP 137/73; PULSE 72
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
== END 2017-02-11 20:09 | disposition home or self-care (01) | DRG 871 ==
LOC: TRCU 17:59
PROVIDERS: ADMIT Internal Medicine; ATTEND Internal Medicine
PROC: 3E03329 Introduction of Other Anti-infective into Peripheral Vein, Percutaneous Approach (ICD-10-PCS; 2017-01-27)
PROC: F07Z9ZZ Gait Training/Functional Ambulation Treatment (ICD-10-PCS; principal; 2017-01-29)
PROC: F07Z8ZZ Transfer Training Treatment (ICD-10-PCS; 2017-01-29)
PROC: F07L6YZ Therapeutic Exercise Treatment of Musculoskeletal System - Lower Back / Lower Extremity using Other Equipment (ICD-10-PCS; 2017-01-29)
PROC: F08Z0ZZ Bathing/Showering Techniques Treatment (ICD-10-PCS; 2017-02-02)
PROC: F08Z1ZZ Dressing Techniques Treatment (ICD-10-PCS; 2017-02-02)
PROC: F08Z2ZZ Grooming/Personal Hygiene Treatment (ICD-10-PCS; 2017-02-02)
DX: A41.01 Sepsis due to Methicillin susceptible Staphylococcus aureus (principal); J18.9 Pneumonia, unspecified organism; Z79.2 Long term (current) use of antibiotics; I12.9 Hypertensive chronic kidney disease with stage 1 through stage 4 chronic kidney disease, or unspecified chronic kidney disease; E11.22 Type 2 diabetes mellitus with diabetic chronic kidney disease; N18.9 Chronic kidney disease, unspecified; D63.8 Anemia in other chronic diseases classified elsewhere; I48.2 Chronic atrial fibrillation; E83.42 Hypomagnesemia; E87.6 Hypokalemia; E03.9 Hypothyroidism, unspecified; F41.1 Generalized anxiety disorder; M19.90 Unspecified osteoarthritis, unspecified site; K21.9 Gastro-esophageal reflux disease without esophagitis; K52.9 Noninfective gastroenteritis and colitis, unspecified; T36.95XA Adverse effect of unspecified systemic antibiotic, initial encounter; E55.9 Vitamin D deficiency, unspecified; E66.9 Obesity, unspecified; K30 Functional dyspepsia; H40.9 Unspecified glaucoma; E78.5 Hyperlipidemia, unspecified; Z68.35 Body mass index [BMI] 35.0-35.9, adult; Z79.01 Long term (current) use of anticoagulants; Z79.4 Long term (current) use of insulin

== ENCOUNTER 2017-02-17 03:46 | Inpatient (IN) | payer MEDICARE, MEDICAID ==
[2017-02-17 03:57] VITALS: BMI 23.8
--- NOTE | 2017-02-17 04:08 | ED PDOC ---
Arrival/HPI - General Chief Complaint: Syncope Time Seen by Provider: 02/17/17 03:59 Historian: Patient, Family - History of Present Illness Narrative History of Present Illness (Text): 02/17/17 04:07 Nadja Fleming is a 76 year old female, whose past medical history includes chronic atrial fibrillation, chronic hypertension, anxiety, and hypothyroidism, who presents to the ED brought in by EMS accompanied by relative status post syncopal episode tonight. Relative states patient had a syncopal episode while in the bathroom tonight prior to arrival. Relative states she caught the patient before she fell to the floor and denies any head trauma. Patient notes yesterday she had nausea, vomiting, and diarrhea throughout the day, and reports she was recently discharged from the hospital last week. Patient also complaining of neck pain. Patient denies any fever, chills, chest pain, shortness of breath, urinary symptoms, back pain, headache, dizziness, or any other complaints. PMD: Dr. Cathy Mcconnell Time/Duration: Prior to Arrival Symptom Onset: Sudden Symptom Course: Unchanged Activities at Onset: Rest, Light Context: Home Past Medical History - Provider Review Nursing Documentation Reviewed: Yes - Cardiac Hx Cardiac Disorders: Yes Hx Hypertension: Yes - Pulmonary Hx Respiratory Disorders: No - Neurological Hx Neurological Disorder: No - HEENT Hx HEENT Disorder: Yes Hx Glaucoma: Yes - Renal Hx Renal Disorder: (sees kidney dr for hypokalemia) - Endocrine/Metabolic Hx Diabetes Mellitus Type 2: Yes Hx Hypothyroidism: Yes - Hematological/Oncological Hx Blood Disorders: No - Integumentary Hx Dermatological Disorder: No - Musculoskeletal/Rheumatological Hx Arthritis: Yes (Degenerative) - Gastrointestinal Hx Gastrointestinal Disorders: No - Genitourinary/Gynecological Hx Reproductive Disorders: No - Psychiatric Hx Psychophysiologic Disorder: No Hx Anxiety: (denies) Hx Depression: (denies) Hx Substance Use: No - Past Surgical History Past Surgical History: No Previous - Anesthesia Hx Anesthesia: No Hx Anesthesia Reactions: No Hx Malignant Hyperthermia: No - Suicidal Assessment Feels Threatened In Home Enviroment: No Family/Social History - Physician Review Nursing Documentation Reviewed: Yes Family/Social History: No Known Family HX Smoking Status: Never Smoked Hx Alcohol Use: No Hx Substance Use: No Hx Substance Use Treatment: No Allergies/Home Meds Allergies/Adverse Reactions: Allergies levothyroxine sodium [From Synthroid] Allergy (Verified 01/27/17 19:28) ITCHING Home Medications: Home Meds Medication Instructions Recorded Confirmed Levothyroxine [Synthroid] 50 mcg PO DAILY 02/17/17 02/17/17 Metoprolol Tartrate 50 mg PO BID 02/17/17 02/17/17 Spironolactone [Aldactone] 25 mg PO BID 02/17/17 02/17/17 Warfarin [Coumadin] 2.5 mg PO DAILY 02/17/17 02/17/17 amLODIPine [Norvasc] 10 mg PO DAILY 02/17/17 02/17/17 Review of Systems - Physician Review All systems were reviewed & negative as marked: Yes - Review of Systems Constitutional: Normal. absent: Fevers Eyes: Normal ENT: Normal Respiratory: Normal. absent: SOB, Cough Cardiovascular: Syncope. absent: Chest Pain Gastrointestinal: Diarrhea, Nausea, Vomiting Genitourinary Female: Normal. absent: Dysuria, Frequency, Hematuria, Urine Output Changes Musculoskeletal: Neck Pain. absent: Back Pain Skin: Normal. absent: Rash Neurological: Normal. absent: Headache, Dizziness Endocrine: Normal Hemo/Lymphatic: Normal Psychiatric: Normal Physical Exam Vital Signs Reviewed: Yes Vital Signs Temp Pulse Resp BP Pulse Ox 02/17/17 16:00 98 F 96 H 19 125/69 100 02/17/17 15:16 99.2 F 85 16 126/70 02/17/17 14:31 99.2 F 84 16 126/70 02/17/17 09:34 98.4 F 80 19 104/56 L 97 02/17/17 07:19 93 H 16 110/57 L 99 02/17/17 05:40 113 H 20 117/67 100 02/17/17 03:56 97.8 F 94 H 20 129/55 L 99 Temperature: Afebrile Blood Pressure: Normal Pulse: Regular Respiratory Rate: Normal Appearance: Positive for: Well-Appearing, Non-Toxic, Comfortable Pain Distress: None Mental Status: Positive for: Alert and Oriented X 3 - Systems Exam Head: Present: Atraumatic, Normocephalic Pupils: Present: PERRL Extroacular Muscles: Present: EOMI Conjunctiva: Present: Normal Mouth: Present: Moist Mucous Membranes Neck: Present: Normal Range of Motion Respiratory/Chest: Present: Clear to Auscultation, Good Air Exchange. No: Respiratory Distress, Accessory Muscle Use Cardiovascular: Present: Regular Rate and Rhythm, Normal S1, S2. No: Murmurs Abdomen: Present: Normal Bowel Sounds. No: Tenderness, Distention, Peritoneal Signs Back: Present: Normal Inspection Upper Extremity: Present: Normal Inspection. No: Cyanosis, Edema Lower Extremity: Present: Normal Inspection. No: Edema Neurological: Present: GCS=15, CN II-XII Intact, Speech Normal Skin: Present: Warm, Dry, Normal Color. No: Rashes Psychiatric: Present: Alert, Oriented x 3, Normal Insight, Normal Concentration Medical Decision Making ED Course and Treatment: 02/17/17 04:07 Impression: 76 year old female brought in s/p syncopal episode tonight. Plan: -- CT Head w/o contrast -- CT Neck w/o contrast -- EKG -- CXR -- Labs, VBG, troponin, blood culture -- Urinalysis, urine culture -- IV fluids -- Reassess and disposition Prior Visits: Notes and results from previous visits were reviewed. Progress Notes: Reviewed EKG, a fib at [address] bpm[address] Non-specific ST/T wave changes. 02/17/17 05:20 Reviewed radiology, Chest X-ray shows no active disease. CT Head shows: 1. No intracranial hemorrhage. 2. Nonspecific white matter changes. 3. Incidental/non-acute findings are described above. CT Neck shows: 1. No fracture. 2. Incidental/non-acute findings are described above. 02/17/17 05:[address] Mcconnell, who is aware and agrees with plan. Accepts pt in to her service. Pt will be admitted to Telemetry for dehydration and syncope. Pt is no acute distress. Discussed results and hospital admission plan with pt, who is aware and verbalizes understanding. - Lab Interpretations Microbiology Results: Microbiology Results 02/17/17 05:00 Blood-Venous Blood Culture - Preliminary NO GROWTH AFTER 3 DAYS 02/17/17 04:20 Blood-Venous Blood Culture - Preliminary NO GROWTH AFTER 3 DAYS Lab Results: 02/17/17 04:20 02/17/17 04:20 Lab Results 02/17/17 04:20: WBC 7.3, RBC 3.46 L, Hgb 11.2 L, Hct 34.2 L, MCV 98.8, MCH 32.4 , MCHC 32.7, RDW 19.2 H, Plt Count 274, MPV 10.6, Gran % 89.2 H, Lymph % (Auto) 6.7 L, Mcintosh % (Auto) 3.7, Eos % (Auto) 0.3 L, Baso % (Auto) 0.1, Gran # 6.50, Lymph # 0.5 L, Mcintosh # 0.3, Eos # 0.0, Baso # 0.01, PT 15.4 H, INR 1.43 H, APTT 24.9, pO2 38, VBG pH 7.31 L, VBG pCO2 41.0, VBG HCO3 20.6 L, VBG Total CO2 21.9 L, VBG O2 Sat (Calc) 74.7 H, VBG Base Excess -5.4 L, VBG Potassium 5.9 H, Glucose 173 H, Lactate 1.4, FiO2 21.0, Sodium 141.0, Potassium 5.8 H* D, Chloride 112.0 H, Carbon Dioxide 20 L, Anion Gap 21 H, BUN 48 H, Creatinine 2.6 H, Est GFR ( Amer) 22, Est GFR (Non-Af Amer) 18, Random Glucose 168 H, Calcium 10.3, Total Bilirubin 0.8, AST 34, ALT 21, Alkaline Phosphatase 43, Troponin I 0.02, Total Protein 9.4 H, Albumin 4.4, Globulin 5.0, Albumin/ Globulin Ratio 0.9 L, Venous Blood Potassium 5.9 H I have reviewed the lab results: Yes - RAD Interpretation Narrative RAD Interpretations (Text): Chest X-ray shows no active disease. CT Head shows: Brain: Mild atrophy. Prominent extra-axial spaces along frontal convexities. No intracranial hemorrhage. No mass. Minimal decreased attenuation within periventricular white matter. No edema. Ventricles: No hydrocephalus. Bones/joints: No acute fracture. Soft tissues: Unremarkable. Vasculature: Atherosclerotic disease of intracranial arteries. Sinuses: No acute sinusitis. Mastoid air cells: No mastoid effusion. Orbits: Unremarkable as visualized. IMPRESSION: 1. No intracranial hemorrhage. 2. Nonspecific white matter changes. 3. Incidental/non-acute findings are described above. CT Neck shows: Vertebrae: No acute fracture. Mild reversal of cervical lordosis. Degenerative retrolithesis of lower cervical spine. Mild facet osteoarthrosis within cervical spine. Discs/spinal canal/neural foramina: [id number] degenerative disc disease within mid cervical spine. Moderate to severe degenerative disc disease within lower cervical spine. Disc herniations within mid to lower cervical spine, suboptimally evaluated. Mild indentation thecal sac mid and lower cervical spine. Neural foraminal narrowing within the dense lower cervical spine. Soft tissues: Unremarkable. Vasculature: Atherosclerotic disease of visualized arteries. Lung apices: Minimal scarring. IMPRESSION: 1. No fracture. 2. Incidental/non-acute findings are described above. Radiology Orders: 02/17/17 04:08 CERVICAL SPINE W/O CONTRAST [CT] Stat HEAD W/O CONTRAST [CT] Stat 02/17/17 04:58 CHEST PORTABLE [RAD] Stat Substation Design Draftsperson: ED Physician, Radiologist - EKG Interpretation Interpreted by ED Physician: Yes Type: 12 lead EKG - Medication Orders Current Medication Orders: Acetaminophen (Tylenol 325mg Tab) 650 mg PO Q6H PRN PRN Reason: Fever >100.4 F Last Admin: 02/19/17 23:39 Dose: 650 MG [facility] Pain/Vitals Document 02/19/17 23:39 TIO (Rec: 02/19/17 23:40 TIO [id number]) Pain Reassessment Is This A Pain ReAssessment? Yes Sleep Is patient sleeping during reassessment? No Presence of Pain Presence of Pain Yes Pain Scale Used Pain Scale Used Numeric Location Pain Location Body Site Abdomen Description Intermittent Intensity 5 Pain Behavior Moaning Facial Grimacing Aggravating Factors None Aggravating Factors None Re-Assess: MAR Pain/Vitals Document 02/20/17 00:39 TIO (Rec: 02/20/17 03:04 TIO [id number]) Pain Reassessment Is This A Pain ReAssessment? Yes Sleep Is patient sleeping during reassessment? No Presence of Pain Presence of Pain No Pain Scale Used Pain Scale Used Numeric Amlodipine Besylate (Norvasc) 10 mg PO DAILY [facility] Last Admin: 02/20/17 09:56 Dose: 10 MG [facility] Pulse and Blood Pressure Document 02/20/17 09:56 BIR (Rec: 02/20/17 09:56 BIR [id number]) Pulse Pulse Rate (60-90) 77 Blood Pressure Blood Pressure (100/60-150/90) 150/71 Home Med (Home Med) 1 unit PO DAILY [facility] Last Admin: 02/20/17 09:53 Dose: 1 UNIT Sodium Chloride (Sodium Chloride 0.9%) 1,000 mls @ 60 mls/hr IV .[id number] [facility] Last Admin: 02/20/17 12:10 Dose: 60 MLS/HR eMAR Start Stop Document 02/20/17 12:10 [facility] (Rec: 02/20/17 12:11 [id number]) Intravenous Solution Start Date 02/20/17 Start Time 12:10 Insulin Human Regular (Humulin R Low) 0 units SC ACHS [facility] PRN Reason: Protocol Last Admin: 02/20/17 12:10 Dose: Not Given Non-Admin Reason: Blood Sugar Parameter [facility] Blood Glucose Document 02/20/17 12:10 [facility] (Rec: 02/20/17 12:10 [id number]) Blood Glucose Finger Stick Blood Glucose (70-120) 148 Subcutaneous Administrations Document 02/20/17 12:10 [facility] (Rec: 02/20/17 12:10 [id number]) Charges for Administration # of Subcutaneous Administrations 0 Lisinopril (Zestril) 5 mg PO DAILY [facility] Metoprolol Tartrate (Lopressor) 50 mg PO BID [facility] Last Admin: 02/20/17 09:55 Dose: 50 MG [facility] Pulse and Blood Pressure Document 02/20/17 09:55 [facility] (Rec: 02/20/17 09:55 [id number]) Pulse Pulse Rate (60-90) 77 Blood Pressure Blood Pressure (100/60-150/90) 150/79 Ondansetron HCl (Zofran Inj) 4 mg IVP Q8H PRN PRN Reason: Nausea/Vomiting Pantoprazole Sodium (Protonix Inj) 40 mg IVP DAILY [facility] Last Admin: 02/20/17 09:56 Dose: 40 MG IVP Administration Document 02/20/17 09:56 [facility] (Rec: 02/20/17 09:56 [id number]) Charges for Administration # of IVP Administrations 1 Discontinued Medications Albuterol Sulfate (Albuterol 0.5% Inhal Sofia (2.5 Mg/0.5 Ml) Ud) 5 mg IH STAT STA Stop: 02/17/17 05:29 Last Admin: 02/17/17 05:54 Dose: 5 MG Bisacodyl (Dulcolax) 10 mg PO ONCE ONE Stop: 02/19/17 08:31 Last Admin: 02/19/17 07:50 Dose: 10 MG Dextrose (Dextrose 50% Inj) 50 ml IVP STAT STA Stop: 02/17/17 05:31 Last Admin: 02/17/17 05:54 Dose: 50 ML IVP Administration Document 02/17/17 05:54 YP (Rec: 02/17/17 05:54 YP [id number]) Charges for Administration # of IVP Administrations 1 Ephedrine (Ephedrine) Confirm Administered Dose 50 mg .ROUTE .STK-MED ONE Stop: 02/19/17 15:38 Glycopyrrolate (Robinul) Confirm Administered Dose 0.2 mg .ROUTE .STK-MED ONE Stop: 02/19/17 15:36 Sodium Chloride (Sodium Chloride 0.9%) 1,000 mls @ 80 mls/hr IV .[id number] [facility] Last Admin: 02/17/17 04:32 Dose: 80 MLS/HR eMAR Start Stop Document 02/17/17 04:32 YP (Rec: 02/17/17 04:32 YP [id number]) Intravenous Solution Start Date 02/17/17 Start Time 04:32 Pantoprazole Sodium 20 mg/ (Sodium Chloride) 100 mls @ 400 mls/hr IV DAILY JA Last Admin: 02/17/17 12:24 Dose: Sodium Chloride (Sodium Chloride 0.9%) 1,000 mls @ 100 mls/hr IV .Q10H AJ Last Admin: 02/20/17 09:56 Dose: 100 MLS/HR eMAR Start Stop Document 02/20/17 09:56 BIR (Rec: 02/20/17 09:56 BIR [id number]) Intravenous Solution Start Date 02/20/17 Start Time 09:56 Pantoprazole Sodium 20 mg/ (Sodium Chloride) 100 mls @ 400 mls/hr IV DAILY AJ Lactated Ringer's (Lactated Ringer's) 1,000 mls @ 75 mls/hr IV .[id number] [facility] Stop: 02/19/17 18:01 Insulin Human Regular (Humulin R) 10 units IVP STAT STA Stop: 02/17/17 05:30 Last Admin: 02/17/17 05:54 Dose: 10 UNITS IVP Administration Document 02/17/17 05:54 YP (Rec: 02/17/17 05:54 YP [id number]) Charges for Administration # of IVP Administrations 1 Iohexol (Omnipaque 240 (50 Ml)) Confirm Administered Dose 50 ml .ROUTE .STK-MED ONE Stop: 02/17/17 06:06 Last Admin: 02/17/17 23:01 Dose: Not Given Non-Admin Reason: Patient in Endo Lidocaine HCl (Lidocaine 1% (20ml)) Confirm Administered Dose 20 ml .ROUTE .STK- MED ONE Stop: 02/19/17 15:23 Magnesium Citrate (Citrate Of Mag) 300 ml PO ONCE ONE Stop: 02/19/17 08:31 Last Admin: 02/19/17 07:50 Dose: 300 ML Propofol (Diprivan) Confirm Administered Dose 200 mg .ROUTE .STK-MED ONE Stop: 02/19/17 15:23 Warfarin Sodium (Coumadin) 5 mg PO 1800 AJ Warfarin Sodium (Coumadin) 10 mg PO STAT STA PRN Reason: Protocol Stop: 02/19/17 19:55 Last Admin: 02/19/17 20:26 Dose: 10 MG MAR INR Result Document 02/19/17 20:26 ITO (Rec: 02/19/17 20:27 TIO [id number]) INR INR 1.3 Warfarin Sodium (Coumadin) 10 mg PO 1800 ONE Stop: 02/20/17 10:12 - Scribe Statement The provider has reviewed the documentation as recorded by the Juana Vasques Provider Attestation: All medical record entries made by the Juana were at my direction and personally dictated by me. I have reviewed the chart and agree that the record accurately reflects my personal performance of the history, physical exam, medical decision making, and the department course for this patient. I have also personally directed, reviewed, and agree with the discharge instructions and disposition. Disposition/Present on Arrival - Present on Arrival Any Indicators Present on Arrival: No History of DVT/PE: No History of Uncontrolled Diabetes: No Urinary Catheter: No History of Decub. Ulcer: No History Surgical Site Infection Following: None - Disposition Have Diagnosis and Disposition been Completed?: Yes Diagnosis: Syncope Disposition: HOSPITALIZED Disposition Time: 05:40 Condition: GOOD
[2017-02-17] MEDS ORDERED: Sodium Chloride 0.9% 1,000 ML IV SCH (04:15)
[2017-02-17 04:35] LABS: ADD MANUAL DIFF? NO
[2017-02-17 04:42] LABS: VENOUS BLOOD GAS BASE EXCESS -5.4 mmol/L (0.0-2.0); VENOUS BLOOD PH 7.31 (7.32-7.43)
[2017-02-17 04:54] LABS: ALB/GLOB RATIO 0.9 (1.1-1.8); BILIRUBIN,TOTAL 0.8 mg/dL (0.2-1.3); CALCIUM 10.3 mg/dL (8.4-10.5); TOTAL PROTEIN 9.4 g/dL (5.8-8.3)
[2017-02-17 04:59] LABS: WHITE BLOOD COUNT 7.3 10^3/ul (4.5-11.0)
[2017-02-17 05:00] LABS: BASO % 0.1 % (0.0-3.0); EOS % 0.3 % (1.5-5.0); GRAN % 89.2 % (50.0-68.0); HEMATOCRIT 34.2 % (36.0-48.0); INR 1.43 (0.93-1.08); LYMPH % 6.7 % (22.0-35.0); MEAN CELL VOLUME 98.8 fL (80.0-105.0); MEAN CORPUSCULAR HEMOGLOBIN 32.4 pg (25.0-35.0); MEAN CORPUSCULAR HGB CONC 32.7 g/dl (31.0-37.0); MEAN PLATELET VOLUME 10.6 fl (7.0-11.0); MONO % 3.7 % (1.0-6.0); PARTIAL THROMBOPLASTIN TIME 24.9 Seconds (23.7-30.8); PLATELET COUNT 274 10^3/uL (120.0-450.0); RED CELL DISTRIBUTION WIDTH 19.2 % (11.5-14.5)
[2017-02-17 05:01] LABS: BASO # 0.01 K/mm3 (0.0-2.0); LYMPH # 0.5 (1.2-3.4); MONO # 0.3 (0.1-0.6)
[2017-02-17 05:03] LABS: TROPONIN I 0.02 ng/mL
[2017-02-17 05:10] LABS: POTASSIUM 5.8 mmol/L (3.6-5.0)
--- NOTE | 2017-02-17 05:22 | CT ---
EXAM: CT Head Without Intravenous Contrast CLINICAL HISTORY: 76 years old, female; Signs and symptoms; Syncope and collapse TECHNIQUE: Axial computed tomography images of the head/brain without intravenous contrast. This CT exam was performed using one or more of the following dose reduction techniques: automated exposure control, adjustment of the mA and/or kV according to patient size, and/or use of iterative reconstruction technique. COMPARISON: CT - HEAD W/O CONTRAST 01/16/2017 9:25:47 PM FINDINGS: Brain: Mild atrophy. Prominent extra-axial spaces along frontal convexities. No intracranial hemorrhage. No mass. Minimal decreased attenuation within periventricular white matter. No edema. Ventricles: No hydrocephalus. Bones/joints: No acute fracture. Soft tissues: Unremarkable. Vasculature: Atherosclerotic disease of intracranial arteries. Sinuses: No acute sinusitis. Mastoid air cells: No mastoid effusion. Orbits: Unremarkable as visualized. IMPRESSION: 1. No intracranial hemorrhage. 2. Nonspecific white matter changes. 3. Incidental/non-acute findings are described above.
[2017-02-17] MEDS ORDERED: Albuterol 0.5% Inhal Sol (2.5 mg/0.5 ml) UD IH STA (05:28)
[2017-02-17] MEDS ORDERED: Insulin Regular 1 UNITS/0.01 ML ML IVP STA (05:29)
[2017-02-17] MEDS ORDERED: Dextrose 50% SYRINGE Inj (50 ml) IVP STA (05:30)
--- NOTE | 2017-02-17 05:36 | CT ---
EXAM: CT Cervical Spine Without Intravenous Contrast CLINICAL HISTORY: 76 years old, female; Pain; Neck pain TECHNIQUE: Axial computed tomography images of the cervical spine without intravenous contrast. This CT exam was performed using one or more of the following dose reduction techniques: automated exposure control, adjustment of the mA and/or kV according to patient size, and/or use of iterative reconstruction technique. Coronal and sagittal reformatted images were created and reviewed. COMPARISON: No relevant prior studies available. FINDINGS: Vertebrae: No acute fracture. Mild reversal of cervical lordosis. Degenerative retrolithesis of lower cervical spine. Mild facet osteoarthrosis within cervical spine. Discs/spinal canal/neural foramina: [id number] degenerative disc disease within mid cervical spine. Moderate to severe degenerative disc disease within lower cervical spine. Disc herniations within mid to lower cervical spine, suboptimally evaluated. Mild indentation thecal sac mid and lower cervical spine. Neural foraminal narrowing within the dense lower cervical spine. Soft tissues: Unremarkable. Vasculature: Atherosclerotic disease of visualized arteries. Lung apices: Minimal scarring. IMPRESSION: 1. No fracture. 2. Incidental/non-acute findings are described above.
[2017-02-17] MEDS ORDERED: Iohexol 240 (50 ml) ONE (06:05)
--- NOTE | 2017-02-17 09:09 | RAD ---
HISTORY: cp COMPARISON: 02/05/2017 FINDINGS: LUNGS: No active pulmonary disease. PLEURA: No significant pleural effusion identified, no pneumothorax apparent. CARDIOVASCULAR: Normal. OSSEOUS STRUCTURES: No significant abnormalities. VISUALIZED UPPER ABDOMEN: Normal. OTHER FINDINGS: None. IMPRESSION: No active disease.
[2017-02-17] MEDS ORDERED: Pantoprazole 20 MG in Sodium Chloride 0.9% 100 ML IV SCH (10:00)
--- NOTE | 2017-02-17 10:39 | HP ---
HISTORY OF PRESENT ILLNESS: This 76-year-old female was examined at her bedside , and her case was reviewed in detail with her nurse at her bedside. The patient presented to the [facility] earlier this morning with nausea and vomiting that started yesterday afternoon and was unrelenting. The patient states that her family members had been experiencing gastrointestinal illness in the home several days prior to her, and yesterday she started with nausea, vomiting and then diarrhea; too many episodes to recall. The patient then became weak and had a near syncopal attack in the bathroom while she was experiencing 1 of her episodes of nausea and vomiting, and her daughter called the ambulance to bring her to the ER for further evaluation of the above. PAST MEDICAL HISTORY: Extensive and includes chronic hypertension, chronic atrial fibrillation, anticoagulation with Coumadin for chronic atrial fibrillation, history of hypothyroidism, history of chronic renal failure, history of diabetes mellitus type 2, and anemia of chronic disease. The patient was last admitted to the [facility] for treatment of staph sepsis and is now readmitted with acute on chronic renal failure in the setting of gastroenteritis and dehydration. REVIEW OF SYSTEMS: HEAD: There was no headache or seizure. EYES: No change in visual acuity. EARS: No hearing loss. THROAT: No swallowing difficulty. NECK: No stiffness. CARDIAC: She has chronic atrial fibrillation, stable atherosclerotic heart disease and chronic hypertension. PULMONARY: No hemoptysis. GASTROINTESTINAL: She had vomiting and diarrhea. GENITOURINARY: Chronic renal failure, stage III. VASCULAR: No claudication. ENDOCRINE: She has hypothyroidism and type 2 diabetes mellitus for which she receives insulin coverage. PSYCHOLOGICAL: Chronic anxiety. NEUROLOGICAL: No knowledge of stroke. SOCIAL HISTORY: She is a nondrinker, nonsmoker, retired homemaker. FAMILY HISTORY: Noncontributory. ALLERGIES: SHE ADMITS TO AN ALLERGY TO SYNTHROID, NOT TO LEVOTHYROXINE, BUT NAME BRAND SYNTHROID. She claims Synthroid makes her itchy. PHYSICAL EXAMINATION: VITAL SIGNS: The patient is in atrial fibrillation rhythm on the monitor. Temperature 98.4, respirations 19, pulse 80, blood pressure 104/56 with a pulse ox of 97% on room air. HEENT: Normocephalic, atraumatic. Eyes: No icterus. Ears clear. Throat not injected. NECK: Supple. HEART: Irregular S1, S2. No pathological rubs, murmurs, or gallops. LUNGS: Clear. ABDOMEN: Soft. There are hyperactive bowel sounds throughout all 4 quadrants. No organomegaly, no rebound, no guarding, no tenderness. EXTREMITIES: No clubbing, no cyanosis, no edema. SKIN: With decreased turgor. VASCULAR: Legs warm to touch. PSYCHOLOGICAL: Alert and anxious. NEUROLOGIC: Intact. LABORATORY DATA: White count 7300, hemoglobin 11.2, hematocrit 34.2, MCV 98, platelets 274. PT/INR 1.43. PTT 24.9. Sodium 142, potassium 5.8, chloride 107 , bicarbonate 20, BUN 48, creatinine 2.6, random blood sugar was 168. All liver function testing was normal including bilirubin 0.8, AST 34, ALT 21, alkaline phosphatase 43. Chest x-ray showed no active disease. Head CT showed no acute stroke or intracranial hemorrhage. Cervical spine CT showed degenerative arthritis and an abdominal CT with oral contrast is pending. IMPRESSION: A 76-year-old female with gastroenteritis, now admitted with acute on chronic renal failure, dehydration, hyperkalemia, anemia of chronic disease and subtherapeutic PT/INR on oral Coumadin for chronic atrial fibrillation. PLAN: At present, the patient did receive oral Kayexalate, IV glucose insulin by the Emergency Room physician. She is receiving IV Protonix, IV saline, insulin coverage as per hour regular low dose protocol, and Zofran p.r.n. nausea and vomiting. We will await the results of her abdominopelvic CAT scan. I have called a consultation with neuro regarding her syncopal episode which is most likely vasovagal related to her dehydration and deconditioning and also with GI regarding her nausea, vomiting and diarrhea. I have requested the nurse capture samples of stool for C. diff toxin and culture, and she will have serial labs and hemoglobin and hematocrit. Based on the results of the above, additional workup will be entertained. Greater than 60 minutes was spent in the care, coordination of care, review of care and discussion of care with the patient and co-consultants and family. Ladan Mcconnell MD cc: [id number] TT: 02/17/2017 10:38:21 neo [email or web address]
[2017-02-17] MEDS: Sodium Chloride 0.9% 1,000 ML IV SCH ×2 (12:24→22:23)
--- NOTE | 2017-02-17 12:38 | CT ---
PROCEDURE: CT Abdomen and Pelvis without intravenous contrast HISTORY: abd pain COMPARISON: None. TECHNIQUE: Without contrast. Contrast Dose: Without contrast Radiation dose: Total exam DLP = 440 mGy-cm. This CT exam was performed using one or more of the following dose reduction techniques: Automated exposure control, adjustment of the mA and/or kV according to patient size, and/or use of iterative reconstruction technique. FINDINGS: LOWER THORAX: Unremarkable. LIVER: Unremarkable. No gross lesion or ductal dilatation. GALLBLADDER AND BILE DUCTS: Unremarkable. PANCREAS: Unremarkable. No gross lesion or ductal dilatation. SPLEEN: Unremarkable. ADRENALS: Unremarkable. No mass. KIDNEYS AND URETERS: Unremarkable. No hydronephrosis. No solid mass. VASCULATURE: Unremarkable. No aortic aneurysm. BOWEL: Unremarkable. No obstruction. No gross mural thickening. APPENDIX: Unremarkable. Normal appendix. PERITONEUM: Unremarkable. No free fluid. No free air. LYMPH NODES: Unremarkable. No enlarged lymph nodes. BLADDER: Unremarkable. REPRODUCTIVE: Unremarkable. BONES: No acute fracture. OTHER FINDINGS: None. IMPRESSION: Unremarkable non contrast enhanced CT of the abdomen and pelvis.
[2017-02-17] MEDS: Insulin Reg-LOW-Coverage SC SCH ×3 (13:08→22:23)
--- NOTE | 2017-02-17 14:46 | CON ---
DATE: 02/17/2017 Seen and examined at the bedside in ER earlier. The chart was reviewed. REQUEST FOR CONSULTATION: For vomiting and diarrhea. HISTORY OF PRESENT ILLNESS: This is a 76-year-old female with a past medical history of hypertension , chronic atrial fibrillation on Coumadin, hypothyroidism and recent discharge from [facility] for staph sep sis. The patient comes to the Emergency Room with complaints of nausea and vomiting that started yes terday. The patient denies any hemetemesis or bright red blood. She also complained of having diarr hea. No reports of any blood per rectum. The patient reported that she felt weak, almost passed out , but did not lose any consciousness and so her daughter brought her to the Emergency Room for furthe r evaluation. On discharge, patient finished her Flagyl. The patient did have episodes of diarrhea when she was in the rehab in TCU of [facility], but her diarrhea did improve. She was sent home on Flagyl, which she completed. She restarted her Coumadin. Her last dose was yesterday. Now, she complains o f nausea, vomiting. She has not had any episodes of increased diarrhea here in the Emergency Room. She is awaiting to go for a CT scan. No fever or chills. She recalls that when she came home from [facility], her daughter became sick with a virus as well as her grandson. PAST MEDICAL HISTORY: As stated above, includes hypothyroidism, chronic renal failure, history of di abetes mellitus type 2, chronic anemia, recent treatment of staph sepsis, had episodes of diarrhea a few weeks ago which may be secondary to antibiotic she was on previously of ampicillin. SOCIAL HISTORY: Denies ETOH, smoking or drinking. FAMILY HISTORY: Noncontributory at this time. ALLERGIES: SYNTHROID. MEDICATIONS: Reviewed as per JAN. REVIEW OF SYSTEMS: Systems reviewed with positive findings, see HPI. VITAL SIGNS: Temperature is 98.4, blood pressure is 104/56, pulse rate is 80, respirations 19, 97% o n room air. LABORATORIES: WBC is 7.3, H and H is 11.2 and 34.2, platelets is 274. PT is 15.4, INR is 1.43, PTT is 24.9. Sodium is 142, K is 5.8, BUN 48, creatinine is 2.6. LFTs are within normal limits. is 5.0. DIAGNOSTICS: She had a head CT. She had a cervical spine CT without contrast for neck pain and it w as negative for fracture, mild to moderate degenerative disk disease in the mid and lower cervical sp ine. Head CT is no intracranial hemorrhage, nonspecific white matter changes and CT scan of abdomen and pelvis was done, the report is pending. She also went for a chest x-ray and that showed no activ e disease. PHYSICAL EXAMINATION: HEENT: Sclerae anicteric. NECK: Supple. CARDIAC: S1, S2. LUNG SOUNDS: Clear. ABDOMEN: With bowel sounds, soft, nondistended. There is some tenderness to mid abdomen. No reboun d or guarding. No organomegaly. EXTREMITIES: Positive pedal pulses, no edema. NEUROLOGIC: Awake, alert, and oriented. ASSESSMENT: This is a 76-year-old female with nausea, vomiting, and diarrhea, rule out possible amos l gastroenteritis, rule out any Clostridium difficile, history of chronic renal failure. Now with de hydration, acute renal failure and hyperkalemia, history of staph sepsis, history of diabetes mellitu s. PLAN: Obtain stool specimen for culture and Clostridium difficile. Continue Protonix and IV fluids. If patient's symptoms are improved, consider clear liquid and follow up patient's CT scan of abdome n and pelvis and monitor electrolytes. Thank you for this consult and for allowing us to participate in your patient's care. The patient wa s seen and case discussed with Dr. Mckenna. Meagan BURNETTE cc: [id number] TT: 02/17/2017 14:45:46 Confirmation # [id number] Dictation # [id number]
--- NOTE | 2017-02-17 18:50 | CON ---
DATE: 02/17/2017 CHIEF COMPLAINT: Syncope. HISTORY OF PRESENT ILLNESS: This is a 76-year-old woman with past medical history of chronic hyperte nsion, chronic atrial fibrillation on Coumadin, history of hypothyroidism, history of chronic renal f ailure, history of type 2 diabetes mellitus, anemia of chronic disease, history of syncopal episodes secondary to vasovagal in nature from dehydration and metabolic derangements, who presented with naus ea and vomiting that started prior to the hospital and started experiencing GI illness and started al so to have nausea, vomiting, and diarrhea and became generally weak and had a near syncopal event whi le she was in the bathroom. She is experiencing one of her episodes of nausea, vomiting. Currently, she was consulted for syncope. She was found to be hyperkalemic with potassium 5.8 and an elevated BUN and acute on chronic kidney injury on top of renal failure indicated with some mild dehydration. Blood pressure is systolically and diastolically on the lower side of 104/56 today. GI is on board for nausea, vomiting, diarrhea. Ordered abdominal CAT scan, which was unremarkable. CT head showed no acute intracranial abnormality. PAST MEDICAL HISTORY: History of chronic hypertension, chronic atrial fibrillation, anticoagulation on Coumadin for chronic AFib, hypothyroidism, chronic renal failure, history of type 2 diabetes melli tus, anemia of chronic disease, history of syncopal episodes in the past from dehydration and vasovag al in nature. REVIEW OF SYSTEMS: A 14-point review of systems except HPI. FAMILY HISTORY: Noncontributory. SOCIAL HISTORY: Nonsmoker, nondrinker, retired homemaker. ALLERGIES: ALLERGIC TO SYNTHROID, DOES NOT TAKE LEVOTHYROIXIN, BUT NAME BRAND SYNTHROID. FAMILY HISTORY: Noncontributory. MEDICATIONS: Reviewed via the nurse's reconciliation sheet. PHYSICAL EXAMINATION: VITAL SIGNS: Temperature 99.2, pulse rate 85, blood pressure 126/70, respiratory rate 16, oxygen sat uration 100% on room air. GENERAL: The patient is sitting up in bed in no acute distress. HEENT: Atraumatic, normocephalic. PERRLA. Extraocular muscles intact. NECK: Supple, no JVD, no adenopathy noted. LUNGS: Clear to auscultation. No adventitious sounds. HEART: S1, S2, normal rate and rhythm. No murmurs, rubs, or gallops. ABDOMEN: Soft, nontender, nondistended. Bowel sounds are present. EXTREMITIES: No clubbing, no cyanosis. Peripheral pulses 2+ felt bilaterally. NEUROLOGIC: The pat ient is alert, oriented to person, place and year. Speech is fluent, without any errors. Cranial ne rves II through XII are intact. MOTOR: Slight increased tone throughout. Moves all extremities equally. No pronator drift seen. SENSORY: Light touch, pinprick slightly decreased up to the calves bilaterally. Decreased vibration of the toes. DTRs are 2+ throughout, 1 at the ankles. COORDINATION: [id number] intact. GAIT: Deferred for now. LABORATORIES: Sodium is 142, potassium 5.8, chloride 107, carbon dioxide 20, BUN of 48, creatinine 2 .6, random glucose 168. ASSESSMENT AND PLAN: This is a 76-year-old woman with history of chronic anxiety neurosis, history o f hypertension, hypothyroidism, degenerative disease, type 2 diabetes mellitus, chronic atrial fibril lation on Coumadin, who is mildly subtherapeutic who came in for near syncope/syncopal event and was found to be dehydrated because of nausea, vomiting and diarrhea, GI is on board for workup, CAT scan of abdomen and pelvis showed no acute abnormality. I feel like her near syncopal episode is likely s econdary to dehydration superimposed on underlying deconditioned state. We will recommend: 1. Monitor electrolytes, . 2. Hydrate the patient slowly. 3. Followup with GI recommendations in regards to her gastroenteritis. 4. Keep systolic blood pressure between 120-130 mmHg. Avoid sudden drops in blood pressure to preve nt cerebral hypoperfusion to the brain. At this time, continue gastrointestinal and deep vein thromb osis prophylaxis. She is clinically stable from my standpoint. Please reconsult if necessary. Saúl Rivero MD cc: [id number] TT: 02/17/2017 18:50:22 Confirmation # [id number] Dictation # [id number] mn
--- NOTE | 2017-02-17 19:01 | CARD ---
APPROVED REPORT EKG Measurement Heart [id number] <Conclusion> Atrial fibrillation Minimal voltage criteria for LVH, may be normal variant Nonspecific T wave abnormality, probably digitalis effect Abnormal ECG
[2017-02-18] MEDS: Sodium Chloride 0.9% 1,000 ML IV SCH ×2 (06:09→17:34)
[2017-02-18 06:50] LABS: URINE BILIRUBIN NEGATIVE (NEGATIVE); URINE BLOOD SMALL (NEGATIVE); URINE GLUCOSE (UA) NEGATIVE (NEGATIVE); URINE KETONE NEGATIVE (NEGATIVE); URINE LEUKOCYTE ESTERASE TRACE Leu/uL (NEGATIVE); URINE PROTEIN 30 mg/dL (<30 mg/dL); URINE UROBILINOGEN 0.2 E.U./dL (<1 E.U./dL)
[2017-02-18 06:58] LABS: URINE APPEARANCE SLIGHT-CLOUDY (CLEAR); URINE COLOR YELLOW (YELLOW)
[2017-02-18 07:03] LABS: URINE BACTERIA RARE (NEG); URINE RBC 0 - 2 /hpf (0-2)
[2017-02-18 07:13] LABS: HEMATOCRIT 28.9 % (36.0-48.0)
[2017-02-18 07:19] LABS: CALCIUM 8.5 mg/dL (8.4-10.5); POTASSIUM 4.6 mmol/L (3.6-5.0)
[2017-02-18] MEDS: Insulin Reg-LOW-Coverage SC SCH ×4 (08:04→22:52)
[2017-02-18] MEDS ORDERED: Pantoprazole 20 MG in Sodium Chloride 0.9% 100 ML IV SCH (10:00)
[2017-02-18] MEDS: LEVOTHYROXINE 50 MCG PO SCH (10:28)
--- NOTE | 2017-02-18 12:13 | PN ---
DATE: 02/18/2017 This 76-year-old female was examined at her bedside. Her case was reviewed in detail with her nurse, Faina, and nurse Meagan Lowery from gastroenterology. The patient remains hospitalized on IV fluids in the setting of dehydration secondary to nausea and vomiting, and this morning, has had 3 small episodes of diarrhea, but no further vomiting. The patient was seen in gastrointestinal consultation by Dr. Curtis Mckenna, who agrees with supportive therapy including IV fluids while awaiting stool studies for C. diff toxin and culture and sensitivity. The patient remains n.p.o. except for meds. She states she has had no vomiting this morning and denies fever or chills. PHYSICAL EXAMINATION: VITAL SIGNS: Show that she is in atrial fibrillation rhythm on the monitor. Her temperature is 97.9, respirations 18, pulse 87, and blood pressure 144/69 with a pulse ox of 100% on room air. HEAD: Normocephalic, atraumatic. EYES: No icterus. EARS: Clear. THROAT: Noninjected. NECK: Supple. HEART: Irregular S1, S2. No pathological rubs, murmurs, or gallops. LUNGS: Clear to auscultation. ABDOMEN: With some hyperactive bowel sounds throughout all 4 quadrants. No rebound, no guarding, no midepigastric tenderness. EXTREMITIES: No clubbing, no cyanosis, no edema. SKIN: With improving turgor. VASCULAR: Legs warm to touch. PSYCHOLOGICAL: Alert. NEUROLOGIC: Intact. LABORATORY DATA: Sodium 142, K 4.6, chloride 112, bicarb 17. BUN 48, creatinine 2.8. Random blood sugar 82. Hemoglobin 9.7, hematocrit 28.9. PT/ INR 1.43. Blood culture shows no growth at 24 hours. Stool for culture and C. diff toxin received, but not reported. IMPRESSION: A 76-year-old female admitted with gastroenteritis, nausea, vomiting, diarrhea, and comorbidities of chronic atrial fibrillation, now with a subtherapeutic INR level with type 2 diabetes mellitus, chronic hypertension, chronic renal failure - stage III, acute renal failure secondary to dehydration , vomiting and diarrhea, and comorbidities of hypothyroidism, glaucoma, degenerative arthritis, and anemia of chronic disease. The patient was hospitalized in the recent past for Staph sepsis, and also had acute on chronic renal failure in that setting. PLAN: Is to discuss with GI if the patient will have her diet advanced. They will discuss if they are going to proceed with endoscopy and sigmoidoscopy versus treat supportively and reinstitute Coumadin therapy. This was discussed in detail with Meagan Lowery from GI and the nurse Faina. If no endoscopy is anticipated, the patient will be resuming her Coumadin tonight. She continues on IV fluids of 0.9 saline at 100 mL per hour. She will have serial labs including daily basic metabolic panel, hemoglobin, hematocrit, and INR. She remains on fall precautions. I have asked the nurse to assist the patient out of bed with ambulation and to resume physical therapy, and I have placed a consultation with rehab for reconditioning and monitoring of her INR while resuming her Coumadin. All of this was discussed in detail with the patient. Greater than 50 minutes were spent in the care, coordination of care, review of care, and discussion of care for this patient today. Prognosis, although poor, remains stable at present. Ladan Mcconnell MD cc: [id number] TT: 02/18/2017 12:12:38 Confirmation # [id number] Dictation # [id number] jn MTDD
--- NOTE | 2017-02-18 15:07 | PN ---
DATE: 02/18/2017 Seen and examined at the bedside earlier today. The patient has not had any episodes of nausea and v omiting. In fact, she is hungry. She did have about 2-3 episodes of diarrhea last night and into morning; reports no bleeding. No fever, chills, shortness of breath or chest pain. VITAL SIGNS: Temperature is 97.9, blood pressure 144/69, pulse 87, respirations 18, 100 on room air. LABORATORY DATA: Today, her hemoglobin is 9.7, hematocrit is 28.9. Chem: Sodium is 142, K is 4.6, BUN 48, creatinine is 2.8. Stool for C. diff is negative for antigen and toxin. PHYSICAL EXAMINATION: HEENT: Sclerae are anicteric. NECK: Supple. CARDIAC: S1, S2. LUNGS: Clear. ABDOMEN: With bowel sounds, soft, nontender. No rebound or guarding. EXTREMITIES: No edema. NEUROLOGIC: Awake, alert, oriented. ASSESSMENT: A 76-year-old female came with nausea and vomiting which is improved. She is still havi ng diarrhea, may be secondary to gastroenteritis. Stool for Clostridium difficile was negative for a ntigen and toxin. She does have acute renal failure, may be secondary to dehydration. Her other com orbidities are chronic atrial fibrillation, diabetes mellitus and hypertension, history of staph seps is. PLAN: Advance her diet to clear liquid. Discussion done with Dr. Mcconnell regarding Coumadin, reviewed with Dr. Mckenna and the patient, can resume her Coumadin therapy tonight. This was communicated t o the nursing staff, Faina. We will likely plan for endoscopy and flex sigmoidoscopy depending on h ow patient is tomorrow. Nursing staff told me that the patient had a 2-second pause and that the pat ient had some bradycardia. Likely, we will discuss with nursing that patient should get cardiac corinne thalia prior to GI workup, but tentatively will keep patient n.p.o. except medication. She can resume on her Coumadin. Continue Protonix 40 daily. She is on IV fluids for hydration, on Norvasc and Lop ressor. The patient is also being followed by neurology and may be pending a cardiac evaluation. patient was seen and case discussed with Dr. Mckenna. Meagan BURNETTE cc: [id number] TT: 02/18/2017 15:06:37 Confirmation # [id number] Dictation # [id number] tn
--- NOTE | 2017-02-19 04:33 | PN ---
DATE: 02/18/2017 NOTE: This is an addendum to the GI progress report dictated by Meagan Lowery NP. SUBJECTIVE: Discussed with the patient, no obvious bleeding per rectum. No melena. LABORATORY DATA: The patient's hemoglobin has dropped from 12.2 to 9.7. PHYSICAL EXAM: ABDOMEN: Soft. There is no tenderness. RENAL: The patient's kidney function . IMPRESSION: This 76-year-old patient with a history of chronic kidney disease, history of anemia, hi story of chronic atrial fibrillation on anticoagulation, recent history of sepsis. Admitted with vom iting and nausea, improved. The patient's hemoglobin was found to have dropped from that time. The patient is due to have an EGD . We will follow up the hemoglobin and hematocrit. conside r about doing an upper gastrointestinal endoscopy. The patient was found to have some 2-second pause s with the bradycardia. He is cleared by cardiology, and we will consider EGD and flexible sigmoidos copy in the a.m. tomorrow. We also discussed with Dr. Rivero. Coumadin has been on hold now . Thank you very much for allowing us to participate in the care of the patient. Curtis Mckenna MD cc: [id number] TT: 02/19/2017 02:54:37 Confirmation # [id number] Dictation # [id number] 02/19/2017 03:32:24
[2017-02-19] MEDS: Sodium Chloride 0.9% 1,000 ML IV SCH (04:52)
[2017-02-19] MEDS: Insulin Reg-LOW-Coverage SC SCH ×4 (07:47→21:46)
[2017-02-19 07:58] LABS: HEMATOCRIT 29.9 % (36.0-48.0)
[2017-02-19 08:03] LABS: INR 1.34 (0.93-1.08)
[2017-02-19 08:10] LABS: CALCIUM 8.2 mg/dL (8.4-10.5); POTASSIUM 4.4 mmol/L (3.6-5.0)
[2017-02-19] MEDS ORDERED: Bisacodyl 5mg EC Tab PO ONE (08:30)
[2017-02-19] MEDS ORDERED: Magnesium Citrate Oral SOL (300 ml) PO ONE (08:30)
--- NOTE | 2017-02-19 10:40 | PN ---
DATE: 02/19/2017 This 76-year-old female was examined at her bedside. Her case was reviewed with her nurse, The patient remains in atrial fibrillation on the monitor. She was seen earlier today by Dr. Odom from cardiology with whom I have discussed her case. He reviewed her cardiac strips. She had a less than 2 second pause for which he has no concern and states that her heart rate has been stable on the monitoring coordinator and he has no plans for further workup at this time and has cleared the patient for endoscopy/sigmoidoscopy today. The patient is lying in bed. She states she is still having loose watery bowel movements. She denies any further vomiting and is tolerating IV fluids without incident. PHYSICAL EXAMINATION: VITAL SIGNS: monitoring coordinator: Atrial fibrillation. Temperature 98, respirations 20, pulse 64, blood pressure 121/76, pulse ox is 100% on room air. HEAD: Normocephalic, atraumatic. EYES: No icterus. EARS: Clear. THROAT: Noninjected. NECK: Supple. HEART: Irregular S1, S2. LUNGS: Clear. ABDOMEN: Soft. EXTREMITIES: No edema. SKIN: Without rash. NEUROLOGIC: Intact. PSYCHOLOGICAL: Alert. VASCULAR: Legs warm to touch. LABORATORY DATA: Sodium 143, potassium 4.4, chloride 113, bicarbonate 16, BUN 27, creatinine 1.7. Previously BUN was 48 with a creatinine of 2.8. Random blood sugar 83. Hemoglobin 9.9, hematocrit 29.9. PT/INR 1.34. Microbiology shows C. diff antigen negative, C. diff toxin negative, and blood cultures negative at 48 hours. IMPRESSION: A 76-year-old female with gastroenteritis, nausea, vomiting, diarrhea causing acute on chronic renal insufficiency, with chronic atrial fibrillation, chronic hypertension, anemia of chronic disease, history of glaucoma, history of hypothyroidism, now with improving azotemia with intravenous fluid hydration. PLAN: The patient at present is n.p.o., on schedule for endoscopy for which she has been cleared by building custodian, Dr. Odom. She will continue on 0.9 saline at 100 mL per hour, Protonix 40 mg IV daily, metoprolol tartrate 50 mg p.o. b.i.d., regular low dose insulin coverage a.c. meals and at bedtime, Norvasc 10 mg p.o. daily, levothyroxine 50 mcg p.o. daily. The patient's Coumadin remains on hold pending GI evaluation. She will have a hemoglobin, hematocrit in the a.m., an INR in the a.m. and a repeat basic metabolic panel in the a.m. The plan is that once she completes her endoscopy and colonoscopy and is cleared by GI, she will resume Coumadin therapy for her chronic atrial fibrillation. Once her creatinine stabilizes, we will attempt a trial of an TIFFANY inhibitor given her atherosclerotic heart disease, chronic hypertension and type 2 diabetes mellitus, while monitoring potassium, creatinine and INR. The patient was reminded that she will need followup with Dr. Mcdaniel as an outpatient regarding her anemia of chronic disease. Greater than 50 minutes was spent in the care, coordination of care, review of care and discussion of care with the patient, her nurse and co-consultants. Her prognosis is stable at present. Ladan Mcconnell MD cc: [id number] TT: 02/19/2017 10:40:06 Confirmation # [id number] Dictation # [id number] ALMENDAREZ
--- NOTE | 2017-02-19 11:30 | CON ---
DATE: 02/19/2017 REQUESTING PHYSICIAN: Dr. Mcconnell. REASON FOR CONSULTATION: Preoperative evaluation. HISTORY OF PRESENT ILLNESS: This is a 76-year-old woman with a history of chronic atrial fibrillatio n and hypertension who was admitted with nausea, vomiting and weakness. She was found to have a wors ening anemia with a fall in hemoglobin from 11.2 to 9.7. An upper endoscopy was planned for today. She was found to have a 2-second pause on telemetry monitoring and evaluation was requested. She den ies any lightheadedness while in the hospital. She has had no prior significant conduction system di sease. PAST MEDICAL HISTORY: Notable for the problems mentioned above. She has a history of hypothyroidism and anxiety. She also has osteoarthritis. CURRENT MEDICATIONS: Include Synthroid 50 mcg daily, metoprolol 50 mg b.i.d., Dyazide once daily and Coumadin. ALLERGIES: There are no known allergies. SOCIAL HISTORY: She does not smoke or drink. FAMILY HISTORY: Both parents are from age-related illness. REVIEW OF SYSTEMS: A 10-point review of systems is notable mainly for the problems mentioned above. PHYSICAL EXAMINATION: GENERAL: She is an elderly woman who appears comfortable at rest at the present time. VITAL SIGNS: Her blood pressure is 120/76 with a pulse of 64 in atrial fibrillation, respirations ar e 14, she is afebrile. HEENT: Normocephalic, atraumatic. Pupils equal, reactive to light and accommodation. NECK: Supple, no JVD noted. CHEST: Clear to auscultation and percussion. HEART: Rhythm is irregularly irregular with a systolic murmur at left sternal border. ABDOMEN: Soft, nontender with normoactive bowel sounds. EXTREMITIES: No clubbing, cyanosis or edema. SKIN: Warm and dry. PSYCHIATRIC: Normal mood and affect. NEUROLOGIC: Alert and oriented x 3. No gross motor or sensory deficits appreciable. DIAGNOSTIC DATA: Hemoglobin and hematocrit are 9.9 and 29.9 with an INR of 1.34, potassium 4.4, BUN and creatinine are 27 and 1.7. Electrocardiogram reveals atrial fibrillation with a controlled ventr icular response and nonspecific ST-T abnormalities. Chest x-ray reveals normal cardiac silhouette wi th clear lung grewal. Telemetry monitoring reveals predominantly atrial fibrillation with a controll ed ventricular response and one episode of 2.1-second pause was recorded, and transient bradycardias in the 50s while asleep were noted as well - all of which appears to be physiologic. IMPRESSION: Chronic atrial fibrillation. No evidence of excessive bradycardia of any clinical signi ficance. RECOMMENDATIONS: From a cardiac standpoint, she is stable to proceed with endoscopic procedures as p juan manuel. Following those procedures, assuming no significant source of bleeding is found, the resumpt ion of anticoagulation would be appropriate. Her rate control therapy should be continued as present ly prescribed. There is no need for modification of her medications at this time. All the above was discussed with Dr. Mcconnell as well as her nursing staff. I would be happy to follow along as needed. Quang Odom MD cc: [id number] TT: 02/19/2017 11:30:29 Confirmation # [id number] Dictation # [id number] mn
[2017-02-19] MEDS ORDERED: Propofol 10 mg/ml Inj (20 ML) ONE (15:22)
[2017-02-19] MEDS ORDERED: Lidocaine 1% Inj (20ml) ONE (15:22)
[2017-02-19] MEDS ORDERED: ePHEDrine 50 mg/ml Inj ONE (15:37)
[2017-02-19] MEDS ORDERED: Lactated Ringer's 1,000 ML IV SCH (16:00)
[2017-02-19] MEDS: LEVOTHYROXINE 50 MCG PO SCH (18:16)
[2017-02-20] MEDS: Sodium Chloride 0.9% 1,000 ML IV SCH ×3 (00:30→12:10)
--- NOTE | 2017-02-20 00:59 | CP.PCM.PN ---
Subjective - Date & Time of Evaluation Date of Evaluation: 02/20/17 Time of Evaluation: 00:57 - Subjective Subjective: S:Nurse calls and tells that bladder scan shows urine collection 694 CC . Patient has discomfort in lower abdomen and not been able to pass urine. Seen at bedside ,she already has passed about 700 cc urine and still draining. States that she had pain in lower abdomen, now she feels better after catheterization. Pertinent medical record was reviewed. O: Last Vital Signs 3 Temp 98.1 F 02/20/17 00:55 Pulse 72 02/20/17 00:55 Resp 18 02/20/17 00:55 BP 151/96 H 02/20/17 00:55 Pulse Ox 100 02/20/17 00:55 Awake, alert, not in distress. LUNGS:Normal breathing pattern. A:Urinary retention.Aetilolgy-? Abdominal discomfort. P:Urinary cathater insertion. Objective - Vital Signs/Intake and Output Vital Signs (last 24 hours): Temp Pulse Resp BP Pulse Ox 98.1 F 72 18 151/96 H 100 02/20/17 00:55 02/20/17 00:55 02/20/17 00:55 02/20/17 00:55 02/20/17 00:55 Intake and Output: 02/19/17 02/20/17 18:59 06:59 Intake Total 420 Output Total 300 Balance 120 - Medications Medications: Current Medications Acetaminophen (Tylenol 325mg Tab) 650 mg PO Q6H PRN PRN Reason: Fever >100.4 F Last Admin: 02/19/17 23:39 Dose: 650 mg Amlodipine Besylate (Norvasc) 10 mg PO DAILY [facility] Last Admin: 02/19/17 18:16 Dose: 10 mg Home Med (Home Med) 1 unit PO DAILY [facility] Last Admin: 02/19/17 18:16 Dose: 1 unit Sodium Chloride (Sodium Chloride 0.9%) 1,000 mls @ 100 mls/hr IV .Q10H [facility] Last Admin: 02/19/17 04:52 Dose: 100 mls/hr Insulin Human Regular (Humulin R Low) 0 units SC ACHS [facility] PRN Reason: Protocol Last Admin: 02/19/17 21:46 Dose: Not Given Metoprolol Tartrate (Lopressor) 50 mg PO BID [facility] Last Admin: 02/19/17 18:18 Dose: 50 mg Ondansetron HCl (Zofran Inj) 4 mg IVP Q8H PRN PRN Reason: Nausea/Vomiting Pantoprazole Sodium (Protonix Inj) 40 mg IVP DAILY [facility] Last Admin: 02/19/17 09:59 Dose: 40 mg Warfarin Sodium (Coumadin) 5 mg PO 1800 [facility] - Labs Labs: 02/19/17 07:30 02/19/17 07:30 PT 14.5 Seconds (9.9-11.8) H 02/19/17 07:30 INR 1.34 (0.93-1.08) H 02/19/17 07:30 APTT 24.9 Seconds (23.7-30.8) 02/17/17 04:20
[2017-02-20 07:38] LABS: HEMATOCRIT 30.8 % (36.0-48.0); INR 1.31 (0.93-1.08)
[2017-02-20 08:01] LABS: CALCIUM 8.5 mg/dL (8.4-10.5); POTASSIUM 3.9 mmol/L (3.6-5.0)
--- NOTE | 2017-02-20 08:25 | CP.PCM.PN ---
Subjective - Date & Time of Evaluation Date of Evaluation: 02/20/17 Time of Evaluation: 08:00 - Subjective Subjective: Stable on 2R. S/P endoscopies yesterday. Cha inserted for retention last night. No CP or SOB. Still weak. V/S noted. AF PE: Lungs: clear Cor.: S1S2 Abd.: soft Ext.: no edema Neuro.: alert I/O= 1740/1450 Labs noted: Cr.= 1.3 Endoscopy reports noted. Objective - Vital Signs/Intake and Output Vital Signs (last 24 hours): Temp Pulse Resp BP Pulse Ox 98.1 F 50 L 18 151/96 H 100 02/20/17 00:55 02/20/17 06:00 02/20/17 00:55 02/20/17 00:55 02/20/17 00:55 Intake and Output: 02/20/17 02/20/17 06:59 18:59 Intake Total 1740 Output Total 1450 Balance 290 - Medications Medications: Current Medications Acetaminophen (Tylenol 325mg Tab) 650 mg PO Q6H PRN PRN Reason: Fever >100.4 F Last Admin: 02/19/17 23:39 Dose: 650 mg Amlodipine Besylate (Norvasc) 10 mg PO DAILY [facility] Last Admin: 02/19/17 18:16 Dose: 10 mg Home Med (Home Med) 1 unit PO DAILY [facility] Last Admin: 02/19/17 18:16 Dose: 1 unit Sodium Chloride (Sodium Chloride 0.9%) 1,000 mls @ 100 mls/hr IV .Q10H [facility] Last Admin: 02/20/17 00:30 Dose: 100 mls/hr Insulin Human Regular (Humulin R Low) 0 units SC ACHS [facility] PRN Reason: Protocol Last Admin: 02/19/17 21:46 Dose: Not Given Metoprolol Tartrate (Lopressor) 50 mg PO BID [facility] Last Admin: 02/19/17 18:18 Dose: 50 mg Ondansetron HCl (Zofran Inj) 4 mg IVP Q8H PRN PRN Reason: Nausea/Vomiting Pantoprazole Sodium (Protonix Inj) 40 mg IVP DAILY [facility] Last Admin: 02/19/17 09:59 Dose: 40 mg Warfarin Sodium (Coumadin) 5 mg PO 1800 [facility] - Labs Labs: 02/20/17 07:00 02/20/17 07:00 PT 14.2 Seconds (9.9-11.8) H 02/20/17 07:00 INR 1.31 (0.93-1.08) H 02/20/17 07:00 APTT 24.9 Seconds (23.7-30.8) 02/17/17 04:20 Assessment and Plan - Assessment and Plan (Free Text) Plan: Assessment: Nausea/Vomiting/Weakness Gastroenteritis Urinary Retention Anemia Esophagitis and diverticulosis AF HBP CKD Anxiety Osteoarthritis Glaucoma Plan: As per Dr. Mcconnell, Bala and Mat Cha/Uro. Eval. Monitor I/O. labs, sats., tel.
[2017-02-20] MEDS: LEVOTHYROXINE 50 MCG PO SCH (09:53)
[2017-02-20] MEDS: Insulin Reg-LOW-Coverage SC SCH ×4 (09:54→21:48)
--- NOTE | 2017-02-20 11:51 | PN ---
DATE: 02/20/2017 This 76-year-old female was examined at her bedside. Her case was reviewed with Nurse Maggy Restrepo and Nurse Meagan Lowery from gastroenterology. The patient completed an upper endoscopy and a colonoscopy yesterday that was significant for gastritis and diverticulosis and internal hemorrhoids. No GI cancer was noted. The patient remains weak and debilitated. Last night she had urinary retention and a consultation with Dr. Mateo Alfaro from urology has been called. Her Cha is draining clear yellow urine. PHYSICAL EXAMINATION: VITAL SIGNS: Temperature is 98.6, respirations 19, pulse 77, and blood pressure 149/71 with a pulse ox of 99% on room air. I's and O's 1740 in and 1450 out yesterday. She is in atrial fibrillation rhythm on monitor HEAD: Normocephalic, atraumatic. EYES: No icterus. EARS: Clear. THROAT: Noninjected. NECK: Supple. HEART: Irregular S1, S2. LUNGS: Clear. ABDOMEN: Soft, no palpable organomegaly, no rebound, no guarding, no tenderness. EXTREMITIES: No clubbing, no cyanosis, no edema. SKIN: Without rash. NEUROLOGIC: Intact. PSYCHOLOGICAL: Alert. VASCULAR: Legs warm to touch. LABORATORY DATA: Hemoglobin 10.4, hematocrit 30.8. PT/INR 1.31. Sodium 143, K 3.9, chloride 115, bicarb 16, BUN 15, creatinine 1.3, random blood sugar is 93. Her blood culture shows no growth at 3 days. Stool for C. diff antigen and toxin is negative. IMPRESSION: A 76-year-old female admitted with gastroenteritis, nausea, vomiting, prerenal azotemia, acute on chronic renal failure, improving on IV fluids. Also, admitted with electrolyte imbalance, including hyperkalemia, resolved; subtherapeutic PT/INR on Coumadin for chronic atrial fibrillation, type 2 diabetes mellitus, hypothroidism, chronic hypertension and now with urinary retention of unclear etiology, also with gastritis and anemia of chronic disease. PLAN: At present is to continue Coumadin 10 mg p.o. tonight and check an INR in the a.m. She will have a repeat basic metabolic panel and a fasting lipid panel in the morning. She will continue on levothyroxine 50 mcg p.o. daily for her chronic hypothyroidism, regular low dose insulin coverage a.c. meals and at bedtime, metoprolol tartrate 50 mg p.o. b.i.d., Norvasc 10 mg p.o. daily, Protonix 40 mg IV daily, 0.9 saline at 60 mL per hour, and Zestril 5 mg p.o. daily. She is currently on a clear liquid diet. She is ordered out of bed to chair. She is wearing anti-embolism stockings to be removed at bedtime and is ordered to have physical therapy for reconditioning and gait training. I have placed a consultation for transitional care rehab. I have asked the nurse to discuss possible bladder training and Cha catheter removal with Dr. Alfaro if he is in agreement and once the patient has a therapeutic INR, is ambulatory and tolerating diet and meds, the plan is for discharge to home for followup as an outpatient with GI, cardiology and . She will follow with Dr. Mcdaniel for anemia of chronic disease upon discharge as well. Greater than 50 minutes was spent in the care, coordination of care and discussion of care with the patient at her bedside, her nurse and co-consultants today. Ladan Mcconnell MD cc: [phone] TT: 02/20/2017 11:50:55 Confirmation # [id number] Dictation # [id number] tn MTDD
--- NOTE | 2017-02-20 13:17 | PN ---
DATE: 02/20/2017 Seen and examined at the bedside earlier today. She is status post endoscopy and colonoscopy yesterd ay. Was found to have diverticulosis and internal hemorrhoids. Biopsies obtained for microscopic co litis and found to have esophagitis. The patient was also found to have bladder retention. Cha ca theter inserted and at least 700 mL of urine returned. No reports of any hematuria. The patient den ies any nausea or vomiting. Not much abdominal pain. No overt GI bleed. No fever, chills, shortnes s of breath or chest pain. VITAL SIGNS: Temperature is 98.6, blood pressure is 150/71, pulse 77, respirations 19, 99% on room a ir. LABORATORY DATA: Her H and H are 10.4 and 30.8. PT is 14.2, INR is 1.31. Chem: Sodium 143, K 3.9, BUN is 15 and her creatinine is 1.3. PHYSICAL EXAMINATION: HEENT: Sclerae anicteric. NECK: Supple. CARDIAC: S1, S2. CHEST: Lung sounds are clear. ABDOMEN: With bowel sounds. Soft, nontender. No rebound or guarding. EXTREMITIES: No edema. NEUROLOGIC: Awake, alert. ASSESSMENT: This is a 76-year-old female admitted with nausea, vomiting and diarrhea likely secondar y to maybe gastroenteritis. She also has history of chronic atrial fibrillation, on Coumadin. Statu s post endoscopy and colonoscopy; patient found to have diverticulosis, internal hemorrhoids, esophag itis, gastritis. Also had urinary retention and chronic anemia. PLAN: The patient is going to be restarted on her Coumadin tonight. Monitor her electrolytes. We w ill advance her diet to a full liquid and advance as tolerated. She is going to be evaluated by uroregine chatman. Continue her GI prophylaxis; she is on Protonix. Remains on IV fluids. Discuss with Dr. Mcconnell . The patient was seen and case discussed with Dr. Mckenna who is covering rounds. Meagan BURNETTE cc: [id number] TT: 02/20/2017 13:16:54 Confirmation # [id number] Dictation # [id number] mn
--- NOTE | 2017-02-20 20:21 | CON ---
DATE: 02/20/2017 CHIEF COMPLAINT: Urinary retention. HISTORY OF PRESENT ILLNESS: A 76-year-old female with a history of dehydration and syncope, atrial f ibrillation. No diabetes. She had a colonoscopy several days ago and endoscopy and earlier in the d ay could not urinate and was uncomfortable and a Cha was placed and 600 mL was obtained. She said month previously she was admitted for urinary tract infection. A CAT scan was done several days ago, which showed the kidneys to be normal with no hydronephrosis. The bladder also is unremarkable. e CAT scan in general was negative. She currently has no fever. She said she at home voided in good amounts. PAST MEDICAL HISTORY: Significant for being on Coumadin for atrial fibrillation, hypertension. Inte restingly, the patient told me she was not a diabetic. However, according to her doctor note and her history, it said she was diabetic, but she currently is not on any medicines for diabetes, although she is on insulin coverage. SOCIAL HISTORY: She does not smoke or drink. FAMILY HISTORY: Noncontributory. ALLERGIES: SYNTHROID. REVIEW OF SYMPTOMS: Currently, no symptoms referable to the head, eyes, ears, nose or throat. No ca rdiac or respiratory symptoms. No gastrointestinal symptoms at this time. No psychiatric symptoms. No dermatologic symptoms. PHYSICAL EXAMINATION: VITAL SIGNS: Shows her to be afebrile, pulse 71, blood pressure 127/70, respirations 19. HEENT: Normocephalic, sclerae clear. Conjunctivae not injected. ABDOMEN: No CVA pain. No hepatosplenomegaly, rebound or guarding. No suprapubic tenderness. GENITOURINARY: The urine is draining clear fletcher urine. SKIN: No purpura or edema. LABORATORY DATA: Shows a white count of 7300. Creatinine is 1.3. Coags show 1.3 INR. Her urine on admission was 0-2 RBCs, 1-3 WBCs. IMPRESSION: Urinary retention. She apparently is a diabetic and whether or not she had any preexist ing neuropathy, I do not know, but I would leave the Cha indwelling for now and give her a voiding trial in 48 hours. If she fails the voiding trial or maintains too high a residual, I would replace the Cha and when she is discharged, have her follow up in the office where we will do urodynamics o n her. She understands the procedure. I will have her get a voiding trial Friday morning. Juni Thompson MD cc: [phone] TT: 02/20/2017 20:21:38 Confirmation # [id number] Dictation # [id number] dn
[2017-02-21] MEDS: Sodium Chloride 0.9% 1,000 ML IV SCH (05:49)
[2017-02-21 07:30] LABS: CALCIUM 8.3 mg/dL (8.4-10.5); POTASSIUM 3.6 mmol/L (3.6-5.0)
[2017-02-21 07:42] LABS: INR 1.66 (0.93-1.08)
[2017-02-21] MEDS ORDERED: Potassium Chloride 10 mEq ER Tab PO ONE (08:30)
[2017-02-21] MEDS: Insulin Reg-LOW-Coverage SC SCH ×5 (09:29→22:00)
[2017-02-21] MEDS: LEVOTHYROXINE 50 MCG PO SCH (09:31)
[2017-02-21] MEDS ORDERED: Potassium Chloride 20 mEq ER Tab PO ONE (10:00)
--- NOTE | 2017-02-21 11:12 | PN ---
DATE: 02/21/2017 Seen and examined at the bedside earlier today. The patient is tolerating her diet. She has not had any episodes of nausea, vomiting or any diarrhea. Denies any abdominal pain. No reports of any acu te overnight events. VITAL SIGNS: Stable. LABORATORIES: Sodium is 142, K is 3.6, BUN is 13, creatinine is 1.3. PHYSICAL EXAMINATION: HEENT: Sclerae are anicteric. NECK: Supple. CARDIAC: S1, S2. LUNGS: With decreased breath sounds, but good air entry, no rales or wheeze. ABDOMEN: With bowel sounds, soft, nontender, no organomegaly. EXTREMITIES: No edema. NEUROLOGIC: Awake, alert, and oriented. ASSESSMENT: This is a 76-year-old female admitted with nausea, vomiting, diarrhea, likely secondary to gastroenteritis which has resolved. She was also found to have anemia, had an endoscopy, colonosc opy, found to have internal hemorrhoids, diverticulitis, esophagitis, gastritis. [facility] that had urinary retention and was seen by urology. No active gastrointestinal bleed was noted. She does have history of chronic anemia, history of chronic atrial fibrillation on Coumadin. PLAN: Advance the patient's diet to a soft low residue diet. The patient's Coumadin is to be restar gabriele guardado. We will continue GI prophylaxis, Protonix. She is on Protonix 40 IV. We can change th at to p.o., monitor H and H. Her colonoscopy findings were again explained to her. The patient was seen and case discussed with Dr. Mckenna. Meagan BURNETTE cc: [id number] TT: 02/21/2017 11:11:38 Confirmation # [id number] Dictation # [id number] tn
[2017-02-21] MEDS ORDERED: Atropine-Diphenoxylate 0.025-2.5 mg Tab PO PRN ×2 (11:55→12:05)
--- NOTE | 2017-02-21 12:47 | PN ---
DATE: 02/21/2017 This 76-year-old female was examined at her bedside. Her case was reviewed in detail with her nurse, Carlos Shelton. The patient continues to complain of occasional diarrhea, but there has been no fu rther vomiting or nausea reported. She is currently receiving a soft bland diet. PHYSICAL EXAMINATION: V8ITAL SIGNS: She remains in an atrial fibrillation rhythm on the monitor. Temperature is 98.4, res pirations 19, blood pressure 127/70 and pulse rate 51. HEAD: Normocephalic, atraumatic. EYES: No icterus. EARS: Clear. THROAT: Noninjected. NECK: Supple. HEART: Irregular S1, S2. LUNGS: Clear. ABDOMEN: Soft. Hyperactive bowel sounds are present. No rebound, no guarding. EXTREMITIES: No clubbing, no cyanosis, no edema. SKIN: Without rash. NEUROLOGIC: Intact. PSYCHOLOGICAL: Alert. VASCULAR: Legs warm to touch. LABORATORY DATA: Hemoglobin 10.4, hematocrit 30.8. PT/INR 1.66. Sodium 142, K 3.6, chloride 114, b icarb 17, BUN 13, creatinine 1.3, random blood sugar was 90. Total cholesterol was 109, LDL choleste rol was 50 and triglycerides were 181. Microbiology report showed stool cultures with stool C and S negative, stool C. diff antigen and toxin negative. Blood cultures no growth at 4 days and urine cul ture probable contamination. IMPRESSION: A 76-year-old female admitted with gastroenteritis, dehydration, prerenal azotemia, impr chris; diarrhea, vomiting, now resolved; chronic atrial fibrillation, chronic hypertension, type 2 ruel betes mellitus with gastritis, diverticulosis and degenerative arthritis and anxiety neurosis, now wi th a Cha catheter for newly noted urinary retention. The patient was seen by Dr. Juni Thompson from urology. He recommended to maintain the Cha catheter for 48 hours and then give her a voiding tri al. If she can void without the Cha, she can be discharged without it. If she cannot void, she wi ll need to have the Cha reinserted and he will need to see the patient in his office for urodynamic studies. She is ordered to have Coumadin 5 mg p.o. today, a repeat PT/INR level in the a.m. I have explained to the patient that she will need to cooperate with physical therapy or social service kathy l be arranging for subacute rehab placement. At present, her medication profile will include levothy roxine 50 mcg p.o. daily, Coumadin 5 mg p.o. today with an INR in the a.m., regular low dose insulin coverage a.c. meals and at bedtime, metoprolol tartrate has been decreased to 25 mg p.o. b.i.d., Norv asc 5 mg p.o. daily, Protonix 40 mg IV daily, a soft bland diet as outlined. The patient states she will cooperate with physical therapy for ambulation safety and hopefully can be discharged to home wh en medically stable. Ladan Mcconnell MD cc: [phone] TT: 02/21/2017 12:46:55 Confirmation # [id number] Dictation # [id number] tn
[2017-02-22] MEDS: Insulin Reg-LOW-Coverage SC SCH ×4 (07:49→22:00)
[2017-02-22 08:35] LABS: INR 1.8 (0.93-1.08)
[2017-02-22] MEDS: LEVOTHYROXINE 50 MCG PO SCH (09:34)
[2017-02-22 11:07] VITALS: RESP 20
--- NOTE | 2017-02-22 17:08 | PN ---
DATE: 02/22/2017 The patient has been voiding several times since the Cha was taken out. She has not voided for a c ouple hours and only has 85 mL in her bladder. She is comfortable, no dysuria and will see again onl y if requested. Juni Thompson MD cc: [phone] TT: 02/22/2017 17:07:15 Confirmation # [id number] Dictation # [id number] dn
--- NOTE | 2017-02-22 19:42 | PN ---
DATE: 02/22/2017 This 76-year-old female was examined at bedside. Her case was reviewed with her nurse, Sharita Joseph. The patient is ambulating independently, able to exit her bed, stand from a seated chair, and use the bathroom independently. She stated she was able to walk around the medical khoury today without incident, and is awaiting staircase safety training by physical therapy. She denied any diarrhea today. Physical exam revealed temperature 97.8, respirations 20, pulse 72, and blood pressure 127/69, with a pulse ox of 100%. HEAD: Normocephalic, atraumatic. EYES: No icterus. EARS: Clear. THROAT: Noninjected. NECK: Supple. HEART: Irregular S1, S2. LUNGS: Clear. ABDOMEN: Soft. EXTREMITIES: No edema. SKIN: Without rash. NEUROLOGICAL: Intact. PSYCHOLOGICAL: Alert. VASCULAR: Legs warm to touch. The patient was seen earlier by Dr. Juni Thompson from urology. He commented that she has been voiding several times since her Cha catheter was taken out. Her residual urine volume was only 85 mL, and he has cleared her for discharge from a urological standpoint. LABORATORIES: Hemoglobin 10.4, hematocrit 30.8. PT/INR 1.80. Sodium 142, K 3.6, chloride 114, bicarb 17, BUN 13, creatinine 1.3. Random blood sugar was 90. Stool for C and S negative. Stool C. diff toxin and antigen negative. Urine culture negative. Blood Cultures: No growth. IMPRESSION: A 76-year-old female with recurrent gastroenteritis now resolved, chronic atrial fibrillation on Coumadin with subtherapeutic INR level, history of hypothyroidism, type 2 diabetes mellitus, history of chronic hypertension, chronic atrial fibrillation, degenerative arthritis, and anemia of chronic disease. PLAN: Coumadin 5 mg p.o. today PT/INR in a.m. She continues on levothyroxine 50 mcg p.o. daily, insulin coverage a.c. meals and at bedtime, for which the patient is trained for home use. Metoprolol tartrate has been dose reduced to 25 mg p.o. daily. She continues on Protonix 40 mg IV daily. I will monitor her vital signs for the a.m., see her clinical progress with physical therapy, and hopefully be able to discharge the patient to home, not subacute rehab, if all of this is accomplished successfully in the morning. All of this was discussed in detail and at length with the patient, her nurse, and co- consultants. Ladan Mcconnell MD cc: [phone] TT: 02/22/2017 19:41:32 Confirmation # [id number] Dictation # [id number] jn MTDD
--- NOTE | 2017-02-23 | PN ---
DATE: 02/22/2017 This patient was seen and evaluated earlier. Tolerating the diet. On examination, temperature 97.8, pulse is 58, blood pressure is 127/69. HENT: Atraumatic. Anicteric. NECK: Supple. HEART: S1, S2 heard. LUNGS: Bilateral air entry present. ABDOMEN: Soft. There is no mass palpable. EXTREMITIES: No tenderness. IMPRESSION: This 76-year-old patient admitted with severe anemia status post EGD and colonoscopy; di d not reveal any active source of blood loss. History of diarrhea, which improved. C. diff has been negative. Tolerating the diet. History of urinary retention, improved. History of chronic atrial fibrillation on Coumadin. OTHER COMORBIDITIES: Include diabetes mellitus. The patient did have a random colon biopsy which was negative for microscopic colitis. Followup of t he hemoglobin and hematocrit, and will sign off, and please reconsult as needed. Thank you very much for allowing us to participate in the care of the patient. Curtis Mckenna MD cc: [id number] TT: 02/22/2017 23:59:21 Confirmation # [id number] Dictation # [id number]
[2017-02-23] MEDS: Insulin Reg-LOW-Coverage SC SCH ×2 (08:27→11:21)
[2017-02-23] MEDS: LEVOTHYROXINE 50 MCG PO SCH (09:19)
[2017-02-23 09:22] LABS: INR 2.06 (0.93-1.08)
[2017-02-23 09:24] VITALS: BP 116/73
[2017-02-23 09:38] VITALS: TEMP 97.5; O2SAT 99
[2017-02-23 15:35] VITALS: PULSE 52
--- NOTE | 2017-02-23 19:09 | DS ---
FINAL DIAGNOSES: Gastroenteritis, resolved; dehydration, resolved; prerenal azotemia, improved; chronic renal insufficiency, stable; chronic hypertension, hypothyroidism, type 2 diabetes mellitus, anemia of chronic disease, chronic atrial fibrillation, now with a stable PT/INR on oral Coumadin; deconditioning, improved. DISPOSITION: Home. FOLLOWUP: In my office this week. DISCHARGE MEDICATIONS: Coumadin 2.5 mg p.o. daily, metoprolol tartrate 25 mg p.o. b.i.d., levothyroxine 50 mcg p.o. daily, Low dose Regular Humulin Insulin sliding scale ac meals and HS, and vitamin D 2000 international units p.o. daily. SUMMARY: This 76-year-old female was admitted to the [facility] with nausea, vomiting, diarrhea and [id number] renal failure in the setting of dehydration and prerenal azotemia. The patient was fully cultured, given IV fluids and found on microbiology studies to have no growth of her blood cultures, negative urine culture, negative stool for C. diff toxin and negative stool C and S. She was seen in consultation by Dr. Curtis Mckenna from who did an upper endoscopy that was remarkable for gastritis and a colonoscopy that was significant for diverticulosis and hemorrhoids. No GI cancer was noted. The patient has anemia of chronic disease, chronic renal insufficiency, diet controlled and type 2 diabetes mellitus that is treated with insulin coverage before meals and at bedtime. At the time of discharge, the patient's temperature was 97.5, respirations 20, pulse 52, blood pressure 116/73 with a pulse ox of 99% on room air. She ambulates independently with safe on a staircase. Her discharge labs show hemoglobin 10.4, hematocrit 30.8. PT/INR of 2.06. Sodium 142, K 3.6, chloride 114, bicarbonate 17, BUN 13, creatinine 1.3, random blood sugar was 90. Cholesterol 109, triglyceride 181, LDL 50 and HDL 21. The patient's colonic biopsy showed no active inflammation, her chest x-ray showed no active disease, her abdominal pelvic CT was unremarkable and the patient is tolerating a soft bland diet without incident. The patient is cleared for discharge to home and will be monitored cautiously as an outpatient in my office. Of note, she did have an episode of urinary retention that was treated with a Cha catheter. She was seen in consultation by Dr. Juni Thompson who felt there was no further testing to do upon removal of her urinary catheter since she was able to void without any significant residual urine noted. Ladan Mcconnell MD cc: [phone] TT: 02/23/2017 19:08:43 juanita ALMENDAREZ
== END 2017-02-23 16:17 | disposition home or self-care (01) | DRG 684 ==
LOC: ED 03:46 → ERH 05:41 → 3RNO 13:41
PROVIDERS: ADMIT Internal Medicine; ATTEND Internal Medicine
PROC: 0DJ08ZZ Inspection of Upper Intestinal Tract, Via Natural or Artificial Opening Endoscopic (ICD-10-PCS; principal; 2017-02-19 15:00)
PROC: 0DBE8ZX Excision of Large Intestine, Via Natural or Artificial Opening Endoscopic, Diagnostic (ICD-10-PCS; 2017-02-19 15:00)
DX: N17.9 Acute kidney failure, unspecified (principal); E86.0 Dehydration; E11.22 Type 2 diabetes mellitus with diabetic chronic kidney disease; K52.9 Noninfective gastroenteritis and colitis, unspecified; I48.2 Chronic atrial fibrillation; D63.8 Anemia in other chronic diseases classified elsewhere; E87.5 Hyperkalemia; I12.9 Hypertensive chronic kidney disease with stage 1 through stage 4 chronic kidney disease, or unspecified chronic kidney disease; E03.9 Hypothyroidism, unspecified; K20.9 Esophagitis, unspecified; R33.9 Retention of urine, unspecified; K29.70 Gastritis, unspecified, without bleeding; Z79.01 Long term (current) use of anticoagulants; N18.3 Chronic kidney disease, stage 3 (moderate); M19.90 Unspecified osteoarthritis, unspecified site; K64.8 Other hemorrhoids; F41.1 Generalized anxiety disorder; K57.30 Diverticulosis of large intestine without perforation or abscess without bleeding; M50.30 Other cervical disc degeneration, unspecified cervical region; H40.9 Unspecified glaucoma

== ENCOUNTER 2017-08-04 19:26 | Inpatient (IN) | payer MEDICARE, MEDICAID ==
[2017-08-04 19:27] VITALS: BMI 23.8
[2017-08-04 20:22] LABS: BASO # 0.02 K/mm3 (0.0-2.0); BASO % 0.3 % (0.0-3.0); EOS # 0.1 (0.0-0.7); EOS % 1.9 % (1.5-5.0); GRAN # 4.03 (1.4-6.5); LYMPH # 2.5 (1.2-3.4); LYMPH % 34.7 % (22.0-35.0); MEAN CELL VOLUME 90.2 fl (80.0-105.0); MEAN CORPUSCULAR HEMOGLOBIN 31.3 pg (25.0-35.0); MEAN CORPUSCULAR HGB CONC 34.7 g/dl (31.0-37.0); MEAN PLATELET VOLUME 10.5 fl (7.0-11.0); MONO # 0.5 (0.1-0.6); MONO % 7.1 % (1.0-6.0); RED CELL DISTRIBUTION WIDTH 15.8 % (11.5-14.5); WHITE BLOOD COUNT 7.2 10^3/ul (4.5-11.0)
[2017-08-04 20:23] LABS: VENOUS BLOOD GAS BASE EXCESS 3.4 mmol/L (0.0-2.0); VENOUS BLOOD PH 7.42 (7.32-7.43)
[2017-08-04 20:32] LABS: INR 2.31 (0.93-1.08); PARTIAL THROMBOPLASTIN TIME 37.1 Seconds (23.7-30.8)
[2017-08-04 20:34] LABS: ALKALINE PHOSPHATASE 57 U/L (38-126); ALT/SGPT 23 U/L (7-56); AST/SGOT 31 U/L (14-36); BILIRUBIN,TOTAL 0.5 mg/dL (0.2-1.3); BLOOD UREA NITROGEN 29 mg/dL (7-21); CALCIUM 9.6 mg/dL (8.4-10.5); CARBON DIOXIDE 26 mmol/L (21-33); CHLORIDE 103 mmol/L (98-107); GFR AFRICAN-AMERICAN 44; GLUCOSE,RANDOM 104 mg/dL (70-110); POTASSIUM 3.2 mmol/L (3.6-5.0); SODIUM 143 mmol/L (132-148); TOTAL PROTEIN 8.7 g/dL (5.8-8.3)
[2017-08-04 20:42] LABS: D DIMER 0.27 mg/L FEU (0-0.50)
[2017-08-04 20:54] LABS: TROPONIN I < 0.01 ng/mL
--- NOTE | 2017-08-04 21:17 | ED PDOC ---
Arrival/HPI - General Chief Complaint: Shortness Of Breath Time Seen by Provider: 08/04/17 19:30 Historian: Patient - History of Present Illness Narrative History of Present Illness (Text): 08/04/17 21:17 A 77 year old female, whose past medical history includes hypertension, anxiety and chronic atrial fibrillation, presents to the emergency department complaining of shortness of breath for the past few days. Patient reports shortness of breath occurs when lying flat. Patient denies any fever, chills, chest pain or any other complaints at this time. PMD: Dr. Cathy Mcconnell Symptom Onset: Sudden Symptom Course: Unchanged Activities at Onset: Rest Context: Home Past Medical History - Provider Review Nursing Documentation Reviewed: Yes - Cardiac Hx Cardiac Disorders: Yes Hx Atrial Fibrillation: Yes (Controlled with coumadin.) Hx Hypertension: Yes - Pulmonary Hx Respiratory Disorders: No Hx Pneumonia: Yes - Neurological Hx Neurological Disorder: No - HEENT Hx HEENT Disorder: Yes Hx Glaucoma: Yes - Renal Hx Renal Disorder: (sees kidney dr for hypokalemia) - Endocrine/Metabolic Hx Diabetes Mellitus Type 2: Yes Hx Hypothyroidism: Yes - Hematological/Oncological Hx Blood Disorders: No - Integumentary Hx Dermatological Disorder: No - Musculoskeletal/Rheumatological Hx Arthritis: Yes (Degenerative) - Gastrointestinal Hx Gastrointestinal Disorders: No - Genitourinary/Gynecological Hx Reproductive Disorders: No - Psychiatric Hx Psychophysiologic Disorder: No Hx Anxiety: (denies) Hx Depression: (denies) Hx Substance Use: No - Past Surgical History Past Surgical History: No Previous - Anesthesia Hx Anesthesia: No Hx Anesthesia Reactions: No Hx Malignant Hyperthermia: No - Suicidal Assessment Feels Threatened In Home Enviroment: No Family/Social History - Physician Review Nursing Documentation Reviewed: Yes Family/Social History: No Known Family HX Smoking Status: Never Smoked Hx Alcohol Use: No Hx Substance Use: No Hx Substance Use Treatment: No Allergies/Home Meds Allergies/Adverse Reactions: Allergies levothyroxine sodium [From Synthroid] Allergy (Verified 01/27/17 19:28) ITCHING Home Medications: Home Meds Medication Instructions Recorded Confirmed Levothyroxine [Synthroid] 50 mcg PO DAILY 02/17/17 08/04/17 Warfarin [Coumadin] 2.5 mg PO DAILY 02/17/17 08/04/17 Metoprolol Tartrate [Lopressor] 50 mg PO BID 08/04/17 08/04/17 Review of Systems - Physician Review All systems were reviewed & negative as marked: Yes - Review of Systems Constitutional: absent: Fevers, Other (chills) Respiratory: SOB Cardiovascular: Orthopnea. absent: Chest Pain Physical Exam Vital Signs Reviewed: Yes Vital Signs Temp Pulse Resp BP Pulse Ox 08/05/17 00:44 70 18 175/83 H 99 08/04/17 23:05 82 18 173/87 H 100 08/04/17 22:00 173/70 H 08/04/17 21:32 69 18 122/79 100 08/04/17 20:46 83 18 158/78 H 100 08/04/17 20:27 77 18 163/75 H 100 08/04/17 20:13 80 18 180/47 H 100 08/04/17 20:03 79 197/116 H 08/04/17 19:56 18 100 08/04/17 19:35 98 F 87 19 207/118 H 100 Temperature: Afebrile Blood Pressure: Hypertensive Pulse: Regular Respiratory Rate: Normal Appearance: Positive for: Well-Appearing, Non-Toxic, Comfortable Pain Distress: None Mental Status: Positive for: Alert and Oriented X 3 - Systems Exam Head: Present: Atraumatic, Normocephalic Pupils: Present: PERRL Extroacular Muscles: Present: EOMI Conjunctiva: Present: Normal Mouth: Present: Moist Mucous Membranes Neck: Present: Normal Range of Motion Respiratory/Chest: Present: Clear to Auscultation, Good Air Exchange. No: Respiratory Distress, Accessory Muscle Use Cardiovascular: Present: Regular Rate and Rhythm, Normal S1, S2. No: Murmurs Abdomen: Present: Normal Bowel Sounds. No: Tenderness, Distention, Peritoneal Signs Back: Present: Normal Inspection Upper Extremity: Present: Normal Inspection. No: Cyanosis, Edema Lower Extremity: Present: Normal Inspection. No: Edema Neurological: Present: GCS=15, CN II-XII Intact, Speech Normal Skin: Present: Warm, Dry, Normal Color. No: Rashes Psychiatric: Present: Alert, Oriented x 3, Normal Insight, Normal Concentration Medical Decision Making ED Course and Treatment: 08/04/17 21:14 Impression: A 77 year old female with shortness of breath. Plan: -- EKG -- chest xray -- labs -- Apresoline -- Reassess and disposition Prior Visits: Notes and results from previous visits were reviewed. Patient last reported to the emergency department on 02/17/17 for evaluation of syncopal episode. Patient was admitted to Telemetry for dehydration and syncope. Patient was discharged on 02/23/17. Progress Notes: 08/04/17 21:15 EKG: Ordered, reviewed, and independently interpreted the EKG. Rate : 93 BPM Rhythm : NSR Interpretation : atrial fibrillation, nonspecific ST wave changes 08/04/17 22:00 chest xray: Cardiomegaly, no congestive heart failure, interpreted by me. case d/w dr benjamin garza pt admitted to [facility] as full admission not obs 08/07/17 08:18 - Lab Interpretations Microbiology Results: Microbiology Results 08/04/17 20:10 Blood-Venous Blood Culture - Preliminary NO GROWTH AFTER 48 HOURS 08/04/17 19:50 Blood-Venous Blood Culture - Preliminary NO GROWTH AFTER 48 HOURS Lab Results: 08/04/17 19:50 08/04/17 19:50 Lab Results 08/04/17 19:50: Sodium 143, Chloride 103, Potassium 3.2 L, Carbon Dioxide 26, Anion Gap 17, BUN 29 H, Creatinine 1.4, Est GFR ( Amer) 44, Est GFR (Non- Af Amer) 36, Random Glucose 104, Calcium 9.6, Total Bilirubin 0.5, AST 31, ALT 23, Alkaline Phosphatase 57, Lactate Dehydrogenase 650, Total Creatine Kinase 101, Troponin I < 0.01 D, NT-Pro-B Natriuret Pep 1690 H, Total Protein 8.7 H, Albumin 4.4, Globulin 4.3, Albumin/Globulin Ratio 1.0 L 08/04/17 19:50: pO2 28 L, VBG pH 7.42, VBG pCO2 44.0, VBG HCO3 28.5 H, VBG Total CO2 29.9 H, VBG O2 Sat (Calc) 63.0, VBG Base Excess 3.4 H, VBG Potassium 3.3 L, Sodium 141.0, Chloride 107.0, Glucose 107 H, Lactate 1.1, FiO2 21.0, Venous Blood Potassium 3.3 L 08/04/17 19:50: PT 25.0 H, INR 2.31 H, APTT 37.1 H, D-Dimer, Quantitative 0.27 08/04/17 19:50: WBC 7.2, RBC 3.99, Hgb 12.5, Hct 36.0, MCV 90.2, MCH 31.3, MCHC 34.7, RDW 15.8 H, Plt Count 229, MPV 10.5, Gran % 56.0, Lymph % (Auto) 34.7, Schleicher % (Auto) 7.1 H, Eos % (Auto) 1.9, Baso % (Auto) 0.3, Gran # 4.03, Lymph # 2.5, Schleicher # 0.5, Eos # 0.1, Baso # 0.02 I have reviewed the lab results: Yes - RAD Interpretation Radiology Orders: 08/04/17 19:57 CHEST PORTABLE [RAD] Stat - EKG Interpretation Interpreted by ED Physician: Yes Type: 12 lead EKG - Medication Orders Current Medication Orders: Discontinued Medications Acetaminophen (Tylenol 325mg Tab) 650 mg PO Q6H PRN PRN Reason: pain or fever Aluminum Hydroxide (Aluminum Hydroxide Gel 320mg /5ml Susp (Bulk)) 30 ml PO Q4H PRN PRN Reason: Indigestion Aspirin (Aspirin) 325 mg PO STAT STA Stop: 08/05/17 04:03 Last Admin: 08/05/17 06:56 Dose: Aspirin (Aspirin) Confirm Administered Dose 325 mg .ROUTE .STK-MED ONE Stop: 08/05/17 04:06 Last Admin: 08/05/17 06:55 Dose: Famotidine (Pepcid) 20 mg PO 1000,2200 AJ Last Admin: 08/06/17 11:03 Dose: 20 mg Furosemide (Lasix) 20 mg IVP ONCE ONE Stop: 08/04/17 21:32 Last Admin: 08/04/17 22:00 Dose: 20 mg MAR Blood Pressure Document 08/04/17 22:00 RD (Rec: 08/04/17 22:00 RD [facility] [id number]) Blood Pressure Blood Pressure (100/60-150/90) 173/70 IVP Administration Document 08/04/17 22:00 RD (Rec: 08/04/17 22:00 RD [facility] [id number]) Charges for Administration # of IVP Administrations 1 Furosemide (Lasix) 20 mg PO Q12H [facility] Last Admin: 08/06/17 11:03 Dose: 20 mg MAR Blood Pressure Document 08/06/17 11:03 JFR (Rec: 08/06/17 11:03 JFR [id number]) Blood Pressure Blood Pressure (100/60-150/90) 132/80 Hydralazine HCl (Apresoline) 10 mg IVP STAT [facility] Last Admin: 08/05/17 22:12 Dose: Hydralazine HCl (Apresoline) 10 mg IVP ONCE ONE Stop: 08/05/17 00:49 Last Admin: 08/05/17 01:14 Dose: 10 mg IVP Administration Document 08/05/17 01:14 RD (Rec: 08/05/17 01:14 RD [facility] [id number]) Charges for Administration # of IVP Administrations 1 JAN Pulse and Blood Pressure Document 08/05/17 01:14 RD (Rec: 08/05/17 01:14 RD [facility] [id number]) Pulse Pulse Rate (60-90) 72 Blood Pressure Blood Pressure (100/60-150/90) 168/80 Sodium Chloride (Sodium Chloride 0.9%) 300 mls @ 999 mls/hr IV .Q19M STA Stop: 08/05/17 02:06 Last Admin: 08/05/17 02:07 Dose: 999 mls/hr Comments: Only 200mls given as ordered eMAR Start Stop Document 08/05/17 02:07 SGG (Rec: 08/05/17 02:07 [id number] [id number]) Intravenous Solution Start Date 08/05/17 Start Time 01:50 Levothyroxine Sodium (Synthroid) 50 mcg PO 0600 [facility] Last Admin: 08/06/17 06:13 Dose: 50 mcg Levothyroxine Sodium (Synthroid) 75 mcg PO 0600 AJ Levothyroxine Sodium (Synthroid) 75 mcg PO 0600 AJ Levothyroxine Sodium (Synthroid) 75 mcg PO .EXTRA DOSE ONE Stop: 08/06/17 09:16 Last Admin: 08/06/17 11:02 Dose: 75 mcg Lorazepam (Ativan) 0.5 mg PO Q6H PRN PRN Reason: Anxiety Metoprolol Tartrate (Lopressor) 50 mg PO BRKDIN [facility] Last Admin: 08/06/17 17:10 Dose: 50 mg MAR Pulse and Blood Pressure Document 08/06/17 17:10 (Rec: 09/20/17 17:10 [id number]) Pulse Pulse Rate (60-90) 84 Blood Pressure Blood Pressure (100/60-150/90) 195/100 Nitroglycerin (Nitro-Bid 2% Oint) 1 ea TOP Q4H PRN PRN Reason: hypertension Ondansetron HCl (Zofran Inj) 4 mg IVP STAT STA Stop: 08/05/17 02:56 Last Admin: 08/05/17 03:15 Dose: 4 mg IVP Administration Document 08/05/17 03:15 [facility] [place] (Rec: 08/05/17 03:52 [facility] [place] [id number]) Charges for Administration # of IVP Administrations 1 Ondansetron HCl (Zofran Inj) 4 mg IVP Q6H PRN PRN Reason: Nausea/Vomiting Potassium Chloride (K-Dur 20 Meq Er Tab) 40 meq PO STAT STA Stop: 08/04/17 21:23 Last Admin: 08/04/17 21:59 Dose: 40 meq Potassium Chloride (K-Dur 20 Meq Er Tab) 40 meq PO BRK AJ Potassium Chloride (K-Dur 20 Meq Er Tab) 40 meq PO BID AJ Last Admin: 08/06/17 17:11 Dose: 40 meq Warfarin Sodium (Coumadin) 2.5 mg PO 1800 AJ PRN Reason: Protocol Last Admin: 08/05/17 17:49 Dose: 2.5 mg - Scribe Statement The provider has reviewed the documentation as recorded by the Juana Coker Provider Scribe Attestation: All medical record entries made by the Juana were at my direction and personally dictated by me. I have reviewed the chart and agree that the record accurately reflects my personal performance of the history, physical exam, medical decision making, and the department course for this patient. I have also personally directed, reviewed, and agree with the discharge instructions and disposition. Disposition/Present on Arrival - Present on Arrival Any Indicators Present on Arrival: No History of DVT/PE: No History of Uncontrolled Diabetes: No Urinary Catheter: No History of Decub. Ulcer: No History Surgical Site Infection Following: None - Disposition Have Diagnosis and Disposition been Completed?: Yes Diagnosis: Congestive heart failure (CHF) Disposition: HOSPITALIZED Disposition Time: 21:50 Condition: GOOD
[2017-08-04] MEDS ORDERED: Potassium Chloride 20 mEq ER Tab PO STA (21:22)
[2017-08-05] MEDS ORDERED: Sodium Chloride 0.9% 300 ML IV STA (01:48)
--- NOTE | 2017-08-05 04:01 | CP.PCM.PN ---
Subjective - Date & Time of Evaluation Date of Evaluation: 08/05/17 Time of Evaluation: 03:39 - Subjective Subjective: Pt was admitted for CHF In the ER she was treated for HTN CHF and Hypokalemia. On the floor she was nitially seen for BP of 83/51.She was given a bolus of 200cc of NS,BP came up to 99/47.Soon after that she vomited clear material. Patient denied any c/o chest pain or SOB but said she felt a transient heart burn earlier. VS BP 97/50 Hr 76 RR 20 T 98.1 O2 sat on R air 99%. PMH: Afib,HTN,Hypothyroidism Objective - Vital Signs/Intake and Output Vital Signs (last 24 hours): Temp Pulse Resp BP Pulse Ox 98.1 F 77 20 86/51 L 99 08/05/17 01:33 08/05/17 01:33 08/05/17 01:33 08/05/17 01:33 08/05/17 00:44 - Medications Medications: Current Medications Hydralazine HCl (Apresoline) 10 mg IVP STAT AJ Last Admin: 08/04/17 20:03 Dose: 10 mg - Labs Labs: PT 25.0 Seconds (9.9-11.8) H 08/04/17 19:50 INR 2.31 (0.93-1.08) H 08/04/17 19:50 APTT 37.1 Seconds (23.7-30.8) H 08/04/17 19:50 - Constitutional Appears: No Acute Distress - Head Exam Head Exam: NORMAL INSPECTION - Eye Exam Eye Exam: PERRL - ENT Exam ENT Exam: Mucous Membranes Moist - Neck Exam Neck Exam: Normal Inspection - Respiratory Exam Respiratory Exam: Clear to Ausculation Bilateral - Cardiovascular Exam Cardiovascular Exam: Bradycardia, Irregular Rhythm - GI/Abdominal Exam GI & Abdominal Exam: Soft, Normal Bowel Sounds - Extremities Exam Extremities Exam: Normal Inspection. absent: Calf Tenderness - Neurological Exam Neurological Exam: Alert, Awake, Oriented x3 - Psychiatric Exam Psychiatric exam: Normal Affect - Skin Skin Exam: Dry, Normal Color, Warm Assessment and Plan - Assessment and Plan (Free Text) Assessment: Hypotension due to meds given in the ER Episode of heart burn followed by vomiting Plan: After bolus of NS, BP came up to the 90s. Zofran was given for episode of vomiting. Ekg was done for her c/o heart burn.It showed Afib rate of 89.There is slight ST segment depression in leads 1 AVL and V4,V5and V6. Troponin 1 stat then Q8h x 2 ordered.
[2017-08-05 05:36] LABS: TROPONIN I 0.03 ng/mL
[2017-08-05] MEDS ORDERED: Nitroglycerin 2% Ointment Foilpak UD TOP PRN (09:22)
[2017-08-05] MEDS ORDERED: Aluminum Hydrox Gel 320 mg/5 ml Susp(480 ml) PO PRN (09:27)
--- NOTE | 2017-08-05 11:05 | RAD ---
HISTORY: sob COMPARISON: 02/17/2017. FINDINGS: LUNGS: The lungs are well inflated and clear. PLEURA: No significant pleural effusion identified, no pneumothorax apparent. CARDIOVASCULAR: Normal. OSSEOUS STRUCTURES: No significant abnormalities. VISUALIZED UPPER ABDOMEN: Normal. OTHER FINDINGS: None. IMPRESSION: No active pulmonary disease.
[2017-08-05 11:30] LABS: HEMATOCRIT 37.2 % (36.0-48.0); MEAN CELL VOLUME 90.3 fl (80.0-105.0); MEAN CORPUSCULAR HEMOGLOBIN 31.6 pg (25.0-35.0); MEAN CORPUSCULAR HGB CONC 34.9 g/dl (31.0-37.0); MEAN PLATELET VOLUME 10.4 fl (7.0-11.0); RED CELL DISTRIBUTION WIDTH 15.9 % (11.5-14.5); WHITE BLOOD COUNT 7.5 10^3/ul (4.5-11.0)
[2017-08-05 11:38] LABS: CALCIUM 9.4 mg/dL (8.4-10.5); MAGNESIUM 1.8 mg/dL (1.7-2.2); POTASSIUM 3.4 mmol/L (3.6-5.0)
[2017-08-05 11:40] LABS: INR 2.18 (0.93-1.08)
[2017-08-05 11:50] LABS: TROPONIN I 0.11 ng/mL
[2017-08-05] MEDS: Potassium Chloride 20 mEq ER Tab PO SCH (17:49)
[2017-08-05 18:27] VITALS: RESP 20
--- NOTE | 2017-08-05 22:48 | HP ---
HISTORY OF PRESENT ILLNESS: This 77 year old female presented to [facility] ER with shortness of breath in the setting of chronic atrial fibrillation, chronic hypertension, chronic renal failure, stage 3, and history of hypothyroidism. The patient denied any chest pain; was mildly short of breath. She denied any wheezing, cough and also was noted to be hypertensive in the ER. She was treated with parenteral hydralazine, which caused a hypotensive event during her evening stay on the cardiac unit, which required resuscitation with 0.9 saline. At present, she is alert, oriented; denying any active chest pain or shortness of breath. She also received parenteral Lasix for clinical congestive heart failure in the emergency room by the ER physician, . PAST MEDICAL HISTORY: Extensive and includes history of sepsis, anxiety, hypothyroidism, chronic hypertension, chronic renal failure, stage 3, and chronic atrial fibrillation for which she takes outpatient Coumadin therapy. REVIEW OF SYSTEMS: HEAD REVIEW: There were no headache or seizures. EYE REVIEW: No change in visual equity. EAR REVIEW: No hearing loss. THROAT REVIEW: No swallowing difficulty. NECK REVIEW: No stiffness. CARDIAC REVIEW: She has chronic atrial fibrillation, hypertension. PULMONARY: No cough. No hemoptysis. No asthmatic history. GASTROINTESTINAL: She has no history of GI bleeding or melena. She did have the colonoscopy that was unremarkable within the past 6 months. GENITOURINARY: She has chronic renal failure, stage 3 to 4. VASCULAR: No claudication. PSYCHOLOGICAL: Chronic anxiety. NEUROLOGIC: No knowledge of stroke or TIA. OUTPATIENT MEDICATIONS: Including Coumadin, metoprolol tartarate, and levothyroxine. ALLERGIES: SHE HAS NO KNOWN ALLERGIES TO MEDICATION. SHE reports SENSITIVITIES TO name brand SYNTHROID AND generic WARFARIN. She prefers name brand Coumadin and generic levothyroxine. SOCIAL HISTORY: She is a nonsmoker, nondrinker, non IV drug mis-user. FAMILY HISTORY: Not applicable. PHYSICAL EXAMINATION: GENERAL: At the present time, she is alert, oriented; denying chest pain and no active shortness of breath. VITAL SIGNS: equipment monitor phototypesetting shows chronic atrial fibrillation. Temperature 98.5, respirations 20, pulse 90, and blood pressure 134/64 with a pulse ox of 98% on room air. HEENT: Head is normocephalic and atraumatic. Eyes: No icterus. Ears: Clear. Throat: Non-injected. NECK: Supple. HEART: Irregular, S1 and S2. No pathological rubs, murmurs or gallops. LUNGS: Without wheezing or rhonchi. ABDOMEN: Soft. EXTREMITIES: No edema. SKIN: Without rash. NEUROLOGICAL: Intact. PSYCHOLOGICAL: Alert. VASCULAR: Legs warm to touch. LABORATORY DATA: White count 7200, hemoglobin 12.5, hematocrit 36.0, and platelets 229,000. PT/INR 2.31. Sodium 143, potassium 3.2, chloride 103, bicarbonate 26, BUN 29, creatinine 1.4. Estimated GFR 36 mL per minute. Sugar 104, bilirubin 0.5, AST 31, ALT 23, alkaline phosphatase 57. Troponin less than 0.01. BNP elevated at 1690. Chest x-ray showed no active pulmonary disease. EKG showed chronic atrial fibrillation. IMPRESSION: This is a 77-year-old female with multiple medical problems including symptomatic congestive heart failure in the setting of chronic renal failure, stage 3, probable acute systolic congestive heart failure with chronic hypertension, atrial fibrillation, on chronic Coumadin therapy and hypothyroidism. PLAN: At present is to maintain this patient on the cardiac unit. She is ordered to have a basic metabolic panel in the a.m., magnesium level and TSH level with the repeat INR. Blood cultures sent to the ER have been received and pending. She will continue on Coumadin 2.5 mg p.o. daily, Ativan 0.5 mg p.o. q. 6 hours p.r.n. anxiety, Lasix 20 mg p.o. q. 12 hours; K-Dur 40 mEq p.o. b.i.d., metoprolol tartarate 50 mg p.o. b.i.d., and Pepcid 20 mg p.o. b.i.d., levothyroxine 15 mcg p.o. daily. She is ordered to have nasal O2 p.r.n. She is order to have an echocardiogram for completeness sake based on physical therapy evaluation for ambulation and staircase safety. Based on results of all of the above additional testing will be entertained. Ultimate plan is for discharge to home when medically stable. All of the above was reviewed in detail with the patient, nursing, nurse practitioner all at bedside. Approximately fifty minutes were spent in the care, management, discussion and counseling of this patient today. Ladan Mcconnell MD [facility] # [id number] TANESHA
--- NOTE | 2017-08-05 22:56 | CARD ---
APPROVED REPORT EKG Measurement Heart [id number] <Conclusion> Atrial fibrillation ST & T wave abnormality, consider inferolateral ischemia or digitalis effect Prolonged QT Abnormal ECG
--- NOTE | 2017-08-05 22:58 | CARD ---
APPROVED REPORT EKG Measurement Heart [id number] <Conclusion> Atrial fibrillation Septal infarct, age undetermined ST & T wave abnormality, consider lateral ischemia or digitalis effect Abnormal ECG
[2017-08-06 01:29] VITALS: O2SAT 99
[2017-08-06] MEDS ORDERED: Levothyroxine 50 MCG TAB PO SCH ×2 (06:00→08:57)
[2017-08-06 06:17] VITALS: TEMP 98.1
[2017-08-06 07:12] LABS: CALCIUM 8.8 mg/dL (8.4-10.5); POTASSIUM 3.7 mmol/L (3.6-5.0)
[2017-08-06] MEDS ORDERED: Potassium Chloride 20 mEq ER Tab PO SCH (08:00)
[2017-08-06] MEDS ORDERED: Levothyroxine 75 MCG TAB PO ONE (09:15)
[2017-08-06] MEDS: Potassium Chloride 20 mEq ER Tab PO SCH ×2 (11:03→17:11)
--- NOTE | 2017-08-06 13:19 | PN ---
DATE: 08/06/2017 SUBJECTIVE: A 77-year-old female was examined at her bedside and case was reviewed in detail with herself and nursing. The patient is awaiting cardiology evaluation by Dr. Dimas from cardiology because of borderline troponins in the setting of normal CPK in this patient with chronic renal failure and no chest pain. The patient was admitted with shortness of breath in the setting of clinical congestive heart failure secondary to chronic hypertension and chronic renal failure stage III and at present her blood pressure is better controlled, and she is feeling markedly improved with the addition of oral Lasix and potassium. She denies any chest pain, shortness of breath, fever, chills, cough or GI upset. 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 Temperature 98.1, respiration 20, pulse 89, blood pressure 122/84, and pulse ox 99% on room air. HEENT: Head is normocephalic and atraumatic. Eyes: No icterus. Ears: Clear. Throat: Non-injected. NECK: Supple. HEART: Irregular, S1 and S2. No pathological rubs, murmurs or gallops. LUNGS: Clear. ABDOMEN: Soft. EXTREMITIES: No edema. SKIN: Without rash. NEUROLOGICAL: Intact. PSYCHOLOGICAL: Alert. VASCULAR: Legs warm to touch. LABORATORY DATA: White count 7,500, hemoglobin 13, hematocrit 37.2, and platelets 220,000. PT/INR 2.18. Sodium 144, K 3.7, chloride 105, bicarbonate 26, BUN 35, and creatinine 1.8. Estimated GFR 27 mL per minute. Random blood sugar 106, CPK one 101 normal; #2, 98 normal; #3, 90 normal. Troponin I is less than 0.01; #2 0.03; #3, 0.11. TSH mildly elevated at 4.93 was normal being 4.68 or less. IMPRESSION: This is a 77-year-old female with clinical congestive heart failure in the setting of chronic renal failure stage III, uncontrolled hypertension, and comorbidities of anxiety neurosis, history of peptic ulcer disease, hypothyroidism, degenerative arthritis, and anxiety neurosis. PLAN: At present is to continue her levothyroxine on an adjusted dose of 75 mcg p.o. daily as discussed with patient. She will continue on Pepcid 20 mg p.o. b.i.d. She will continue on metoprolol tartrate 50 mg p.o. b.i.d., Lasix 20 mg p.o. q. 12 and potassium chloride 40 mEq. p.o. b.i.d., Coumadin 2.5 mg p.o. daily and Nitropaste 1 inch to chest wall if her systolic blood pressure should be greater than 160 or diastolic blood pressure greater than 100. She is ordered have 2D echocardiogram heart healthy diet and to ambulate with assistance on the construction equipment technician. Once the patient is cleared by cardiology, she will be discharged to home for cautious outpatient monitoring of all of the above comorbidities. Approximately fifty minutes was spent in the management, discussion and conselling of this patient today. All of the above with discussed in detail and greater than fifty minutes were spent in the care, management, counseling of this patient today. Ladan Mcconnell MD MTDD
--- NOTE | 2017-08-06 14:49 | CON ---
DATE: 08/06/2017 REQUESTING PHYSICIAN: Dr. Mcconnell. REASON FOR CONSULTATION: Dyspnea. HISTORY OF PRESENT ILLNESS: This is a 77-year-old woman known to us with a history of atrial fibrillation and congestive heart failure who presented to the emergency room with increasing dyspnea and palpitations. She is noted to be hypertensive in the emergency room and treated with IV hydralazine. This caused transient hypotension and required fluid resuscitation. She is currently seen on telemetry and is current comfortable. She denies any chest pain. PAST MEDICAL HISTORY: Notable for the problems mentioned above. She has a history of chronic renal insufficiency, hypothyroidism. MEDICATIONS: At home include Coumadin, metoprolol 50 mg .b.i.d. and Synthroid 50 mcg daily. ALLERGIES: NONE. SOCIAL HISTORY: She does not smoke or drink. FAMILY HISTORY: Both parents are from age related illness. REVIEW OF SYSTEMS: A 10-point reviewed systems is otherwise unremarkable. PHYSICAL EXAMINATION: GENERAL: She is an elderly woman who appears comfortable at the present time. VITAL SIGNS: Her blood pressure is 122/84, pulse of 76, respirations are 16. She is in atrial fibrillation. HEENT: Normocephalic and atraumatic. NECK: Supple. No JVD noted. CHEST: Crackles noted at the left base. HEART: PMI displaced laterally with an irregular regular rhythm and a systolic murmur present in the lower left sternal border and apex. ABDOMEN: Soft and nontender. Normoactive bowel sounds. EXTREMITIES: No edema. SKIN: Warm and dry. PSYCHIATRIC: Normal mood and affect. NEUROLOGIC: Alert and oriented x3. No gross motor or sensory deficits appreciable. LABORATORY DATA: Potassium 3.7, BUN and creatinine 35. and 0.8. TSH 4.9. White count 7.5, hemoglobin and hematocrit 13 and 37.2, with a platelet count of 220,000. INR 2.18. Initial troponin is not detected. Follow up 0.03, repeat is 0.11 with a CK of 101, 98 and 90 respectively. IMPRESSION: 1. Decompensated congestive heart failure, acute on chronic, likely combined systolic and diastolic. 2. History of mitral regurgitation. 3. Chronic atrial fibrillation. 4. Recent accelerated hypertension. 5. Chronic renal insufficiency. RECOMMENDATIONS: IV Lasix will be continued. An echocardiogram will be ordered to evaluate her mitral regurgitation. Coumadin therapy should continue antihypertensive therapy adjustment, we will proceed as needed. Fluid restriction were advised. Follow along me for further recommendations after review of the above findings. Thank you for this consultation. Quang Odom MD
[2017-08-06 17:19] VITALS: BP 195/100; PULSE 84
[2017-08-07] MEDS ORDERED: Levothyroxine 75 MCG TAB PO SCH (06:00)
--- NOTE | 2017-08-07 10:55 | CARD ---
APPROVED REPORT EXAM: Two-dimensional and M-mode echocardiogram with Doppler and color Doppler. INDICATION Congestive Heart Failure 2D DIMENSIONS Left Atrium (2D)4.0 (1.6-4.0cm)IVSd1.2 (0.7-1.1cm) LVDd4.2 (3.9-5.9cm)PWd1.1 (0.7-1.1cm) LVDs2.7 (2.5-4.0cm)FS (%) 36.8 % LVEF (%)67.1 (>50%) M-Mode DIMENSIONS Aortic Root2.40 (2.2-3.7cm)Aortic Cusp Exc.1.50 (1.5-2.0cm) Aortic Valve AoV Peak Oixkwece03.9cm/Tom Peak GR.3mmHg Mitral Valve E/A ratio0.0 TDI E/Lateral E'0.0E/Medial E'0.0 Tricuspid Valve TR Peak [id number] Peak Gr.40mmHg [id number] LEFT VENTRICLE The left ventricle is normal size. There is mild concentric left ventricular hypertrophy. The left ventricular function is normal. The left ventricular ejection fraction is within the normal range. There is normal LV segmental wall motion. RIGHT VENTRICLE The right ventricle is normal size. The right ventricular systolic function is normal. ATRIA The left atrium is mildly dilated. The right atrium size is normal. The interatrial septum is intact with no evidence for an atrial septal defect. AORTIC VALVE The aortic valve is normal in structure. No aortic regurgitation is present. There is no aortic valvular stenosis. MITRAL VALVE The mitral valve is mildly thickened. Mitral regurgitation is moderate. TRICUSPID VALVE The tricuspid valve is normal in structure. There is moderate tricuspid regurgitation. PULMONIC VALVE The pulmonary valve is normal in structure. GREAT VESSELS The aortic root is normal in size. The IVC is normal in size and collapses >50% with inspiration. PERICARDIAL EFFUSION There is no pleural effusion. There is no pericardial effusion. <Conclusion> Dilated LA. Mild concentric LVH. Normal LV size and systolic function. Moderate MR and TR.
--- NOTE | 2017-08-07 12:36 | DS ---
FINAL DIAGNOSES: Acute systolic congestive heart failure resolved, acute accelerated hypertension improved, chronic mitral regurgitation, chronic atrial fibrillation, chronic renal insufficiency stage III, anxiety neurosis, and hypothyroidism. DISPOSITION: Home. [employer]IC: Quang Odom MD, cardiology. DISCHARGE DIET: 2 grams sodium, 60 grams protein, heart healthy, and 1000 mL p.o. fluid restriction. MEDICATION: Coumadin 2.5 mg p.o. daily, Lopressor 50 mg p.o. b.i.d., levothyroxine 75 mcg p.o. daily, Lasix 20 mg p.o. q. 12 hours, and K-Dur 40 mEq p.o. b.i.d. DISCHARGE FOLLOWUP: Followup in my office within one week. The patient cleared for discharge by Dr. Odom, cardiology. SUMMARY: This 77-year-old female was admitted to [facility] with clinical congestive heart failure and accelerated hypertension and chronic renal failure stage III with comorbidities of mitral regurgitation and hypothyroidism. The patient was admitted and treated with parenteral oral Lasix, oral potassium, and had serial labs that showed stable electrolytes. A 2D echocardiogram was completed and read by Dr. Odom that shows chronically dilated left atrium, normal left ventricular size and systolic function with moderate mitral regurgitation and tricuspid regurgitation. At the time of discharge, vital signs were; temperature of 98.1, respirations of 16, pulse of 89, blood pressure of 132/80, and pulse oximetry of 99% on room air. Blood culture showed no growth. White count of 7500, hemoglobin of 13, hematocrit of 37.2, and platelets of 220,000. PT/INR therapeutic at 2.18. Lab showed sodium 144, K 3.7, chloride 105, bicarb 26, BUN 35, creatinine 1.8, and random blood sugar 106. Because of a mildly elevated TSH on levothyroxine, her dose was readjusted to 75 mcg p.o. daily. The patient was informed of all the above and was cleared for discharge by cardiology. She will have her laboratories monitored as an outpatient and she was advised regarding her diet and fluid restriction. Ladan Mcconnell MD
== END 2017-08-06 18:47 | disposition home or self-care (01) | DRG 291 ==
LOC: ED 19:26 → ERH 21:50 → 2RNO 08-05 01:35 → 3RNO 08-06 14:16
PROVIDERS: ADMIT Internal Medicine; ATTEND Internal Medicine
DX: I13.0 Hypertensive heart and chronic kidney disease with heart failure and stage 1 through stage 4 chronic kidney disease, or unspecified chronic kidney disease (principal); I50.43 Acute on chronic combined systolic (congestive) and diastolic (congestive) heart failure; E11.22 Type 2 diabetes mellitus with diabetic chronic kidney disease; I48.2 Chronic atrial fibrillation; I95.2 Hypotension due to drugs; N18.3 Chronic kidney disease, stage 3 (moderate); E03.9 Hypothyroidism, unspecified; I34.0 Nonrheumatic mitral (valve) insufficiency; E87.6 Hypokalemia; R12 Heartburn; R11.10 Vomiting, unspecified; F41.1 Generalized anxiety disorder; M19.90 Unspecified osteoarthritis, unspecified site; Z79.01 Long term (current) use of anticoagulants; Z87.11 Personal history of peptic ulcer disease